=== PATIENT | female | born 1955 | race Caucasian/White ===

== ENCOUNTER → 2016-05-20 | Outpatient (CLI) | payer OTHER ==
[~2016-05-20] MED LIST: ALPR1TAB2 PO; BUPR150T15 PO; BYSTOLIC10 MG PO; BYSTOLIC5 MG PO; CALC-507 PO; CIPR500T94 PO; DICY10CA3 PO; DICY20TA30 PO; ESCI10TA10 PO; ESCI20TA10 PO; FURO-68 PO; HYDR-971 PO; LEVO500T38 PO; LORA10TA68 PO; LOSA100T6 PO; METH-37 PO; METR500T PO; MULT-212 PO; NICO1PAT25 TD; OMEP20TA63 PO; ONDA4TAB10 SL; OXYC-323 PO; Oxycodone Hcl/Acetaminophen PO
--- NOTE | 2016-05-20 14:24 | CARD ---
APPROVED REPORT EXAM: Two-dimensional and M-mode echocardiogram with Doppler and color Doppler. Other Information Quality : Average Rhythm : NSR INDICATION Chest Pain 2D DIMENSIONS RVDd3.5 (2.9-3.5cm)Left Atrium(2D)3.8 (1.6-4.0cm) IVSd1.3 (0.7-1.1cm)Aortic Root(2D)3.3 (2.0-3.7cm) LVDd5.2 (3.9-5.9cm)LVOT Diameter2.2 (1.8-2.4cm) PWd1.3 (0.7-1.1cm)LVDs3.3 (2.5-4.0cm) FS (%) 35.9 %SV84.2 ml LVEF(%)65.0 (>50%) Aortic Valve AoV Peak Tony.95.7cm/sAoV VTI20.9cm AO Peak GR.3.7mmHgLVOT Peak Tony.83.4cm/s LVOT VTI 18.38cmAO Mean GR.2mmHg CRIS (VMAX)3.75ak7AQR (VTI)3.49cm2 AI P 1/2 [id number] Mitral Valve MV E Ebkreomh47.7cm/sMV DECEL BPYM499dz MV A Jgtmkzdy11.6cm/sMV E Mean Gr.1mmHg MV BTO50rtZ/A Ratio0.7 MV A Ynletkin304whPFV (PHT)2.33cm2 TDI E/Lateral E'6.4E/Medial E'8.3 Pulmonary Valve PV Peak Xmfpqcnu48.0cm/sPV Peak Grad.3mmHg RVOT VTI17.4cm Tricuspid Valve TR P. Hhcsjiej880nk/sRAP KGOCDEVZ6euOv TR Peak Gr.67mjPcRCCJ24guDv Pulmonary Vein S1 Bgwdjwpb72.7cm/sD2 Elucbsyj06.0cm/s LEFT VENTRICLE The left ventricle is normal size. There is borderline to mild concentric left ventricular hypertroph y. Left ventricle systolic function is normal. The Ejection Fraction is 65%. There is normal LV segme ntal wall motion. The left ventricular diastolic function and filling is normal for age. RIGHT VENTRICLE The right ventricle is normal size. The right ventricular systolic function is normal. ATRIA The left atrium size is normal. The right atrium size is normal. The interatrial septum is intact wit h no evidence for an atrial septal defect or patent foramen ovale as noted on 2-D or Doppler imaging. AORTIC VALVE The aortic valve is normal in structure. The aortic valve is trileaflet. Doppler and Color Flow revea led mild aortic regurgitation. There is no significant aortic valvular stenosis. MITRAL VALVE The mitral valve is normal in structure. There is no mitral valve stenosis. Doppler and Color Flow re vealed trace to mild mitral regurgitation. TRICUSPID VALVE The tricuspid valve is normal in structure. Doppler and Color Flow revealed mild tricuspid regurgitat ion. The PA pressure was estimated at 30 mmHg. There is no tricuspid valve stenosis. PULMONIC VALVE The pulmonic valve is not well visualized. Doppler and Color Flow revealed no pulmonic valvular regur gitation. There is no pulmonic valvular stenosis. GREAT VESSELS The aortic root is normal in size. Normal pulmonary venous flow (Doppler). The IVC is normal in size and collapses >50% with inspiration. PERICARDIAL EFFUSION There is no evidence of significant pericardial effusion. Critical Notification Critical Value: No <Conclusion> Left ventricle systolic function is normal. The Ejection Fraction is 65%. There is borderline to mild concentric left ventricular hypertrophy. The left atrium size is normal. The right atrium size is normal. Doppler and Color Flow revealed mild aortic regurgitation. The aortic valve is normal in structure. The aortic valve is trileaflet. Doppler and Color Flow revealed trace to mild mitral regurgitation. The mitral valve is normal in structure. Doppler and Color Flow revealed mild tricuspid regurgitation. The PA pressure was estimated at 30 mmHg. The pulmonic valve is not well visualized. The aortic root is normal in size. There is no evidence of significant pericardial effusion.
== END | disposition home or self-care (01) ==
LOC: ECHO 08:53
PROVIDERS: ATTEND Internal Medicine Cardiovascular Disease
DX: R07.89 Other chest pain (principal); R53.83 Other fatigue; I51.7 Cardiomegaly; I34.0 Nonrheumatic mitral (valve) insufficiency; I35.1 Nonrheumatic aortic (valve) insufficiency; I07.1 Rheumatic tricuspid insufficiency
CPT/HCPCS: 93306

== ENCOUNTER 2016-05-31 11:36 | Emergency (ER) | payer OTHER ==
[~2016-05-31] VITALS: Ht 170.2 cm; Wt 89.8 kg
[~2016-05-31 11:36] MED LIST changes: -HYDR-971 PO; -METH-37 PO
[2016-05-31 11:54] VITALS: BP 174/91
[2016-05-31 12:59] LABS: BILIRUBIN,URINE NEGATIVE (NEG); GLUCOSE,URINE NEGATIVE (NEG); NITRITE,URINE NEGATIVE (NEG); PROTEIN,URINE NEGATIVE (NEG-TRACE); UROBILINOGEN,URINE 0.2 mg/dL (0.2 mg/dL)
[2016-05-31 13:10] LABS: BACTERIA,URINE 0 /HPF (0-FEW); RBC,URINE OCC /HPF (0-2); SQUAMOUS EPITHELIAL CELL,UR FEW /LPF; WBC,URINE OCC /HPF (0-4)
[2016-05-31] MEDS ORDERED: METH-37 PO (13:38)
[2016-05-31] MEDS ORDERED: HYDR-971 PO (13:38)
--- NOTE | 2016-05-31 13:40 | PHYS DOC ---
Past Medical History Past Medical History: Depression, Diverticulitis, Hypertension, Other Additional Past Medical Histor: SLEEP APNEA, SICK SINUS SYNDROME Past Surgical History: Pacemaker, Tonsillectomy, Other Additional Past Surgical Histo: BOWEL RESECTION, LAP BAND & REMOVAL OF BAND, gastric sleeve Additional Information: occasional Alcohol Use: Occasionally Drug Use: None Adult General Chief Complaint Chief Complaint: LOWER BACK PAIN OR [facility] HPI Patient is a 61 year old female who presents with low back pain for one week. She reports that the pain is mostly on the right side of the lumbar region without radiation. 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 She is a history of sciatica denies radiation of the pain. She denies any focal weakness or numbness. She's not had any incontinence or saddle anesthesia. She denies nausea, vomiting, abdominal pain, or urinary symptoms. Her PCP is Dr. Karin Valencia. Review of Systems Review of Systems Constitutional: Denies fever or chills. [] GI: Denies abdominal pain, nausea, vomiting. [] : Denies dysuria, hematuria or urinary frequency. [] Musculoskeletal: Denies joint pain. Reports low-back pain. Integument: Denies rash or skin lesions. [] Neurologic: Denies headache, focal weakness or sensory changes. Denies incontinence or saddle anesthesia. All systems reviewed and negative unless otherwise stated in the HPI. Allergies Allergies Allergies Coded Allergies Type Severity Reaction Last Updated Verified No Known Drug Allergies 01/12/15 No Physical Exam Physical Exam Constitutional: Well developed, well nourished, no acute distress, non-toxic appearance. [] HENT: Normocephalic, atraumatic, oropharynx moist. [] Eyes: PERRLA, EOMI, conjunctiva normal, no discharge. [] Neck: Normal range of motion, no tenderness, supple, no stridor. [] Cardiovascular: Heart rate regular rhythm, no murmur. [] Lungs & Thorax: Bilateral breath sounds clear to auscultation without wheezes, rales, or rhonchi. [] Abdomen: Bowel sounds normal, soft, no tenderness, no masses, no pulsatile masses. [] Skin: Warm, dry, no erythema, no rash. [] Back: No midline tenderness, right paraspinal and CVA tenderness. [] Extremities: No tenderness, ROM intact, no edema. Distal pulses equal bilaterally. Light touch sensation intact and equal bilaterally in the legs. Neurologic: Alert and oriented X 3, normal motor function, normal sensory function, no focal deficits noted. The patient walks with a slow, steady gait without assistance. Psychologic: Affect normal, judgement normal, mood normal. [] Current Patient Data Vital Signs Vital Signs Date Time Temp Pulse Resp B/P Pulse Ox O2 Delivery O2 Flow Rate FiO2 05/31/16 11:54 97.8 61 16 98 Room Air 97.8 Lab Values Laboratory Tests Test 05/31/16 12:49 Urine Collection Type Unknown Urine Color Yellow Urine Clarity Clear Urine pH 6.0 Urine Specific [place] 1.010 Urine Protein Negativemg/dL (NEG-TRACE) Urine Glucose (UA) Negativemg/dL (NEG) Urine Ketones (Stick) Negativemg/dL (NEG) Urine Blood Negative (NEG) Urine Nitrite Negative (NEG) Urine Bilirubin Negative (NEG) Urine Urobilinogen Dipstick 0.2mg/dL (0.2 mg/dL) Urine Leukocyte Esterase Negative (NEG) Urine RBC Occ/HPF (0-2) Urine WBC Occ/HPF (0-4) Urine Squamous Epithelial Cells Few/LPF Urine Bacteria 0/HPF (0-FEW) EKG EKG [] Radiology/Procedures Radiology/Procedures [] Course & Med Decision Making Course & Med Decision Making Pertinent Labs and Imaging studies reviewed. (See chart for details) [] Dragon Disclaimer Dragon Disclaimer This electronic medical record was generated, in whole or in part, using a voice recognition dictation system. Departure Departure Impression: Primary Impression: Low back strain Disposition: 01 HOME, SELF-CARE Condition: STABLE Referrals: INA GARCIA MD (PCP) Patient Instructions: Back Pain, Adult, [id number] Additional Instructions: You were seen today for low back pain. You did not have any tenderness over the bones, so no xray was performed. Your urine does not show any infection. Please take the prescribed medications as directed. Do not drive or operate heavy machinery while taking pain medication or muscle relaxers. Please apply heat, stretch and massage gently to help with your pain. Please follow up with your primary care doctor if your pain continues. Return to the emergency department if you have loss of bowel or bladder control , numbness between your legs, or other new or concerning symptoms. Scripts Hydrocodone/Apap 5-325 ([place] 5-325 Tablet)1 Each Tablet1 Tab PO PRN Q6HRS PRN PAIN #20 TAB Prov:ZAK MALHOTRA 05/31/16 Methocarbamol (Robaxin)500 Mg Fkrtxi604 Mg PO QID #20 TAB Prov:ZAK MALHOTRA 05/31/16 Problem Qualifiers Primary Impression: Low back strain Encounter type: initial encounter Qualified Code: S39.012A - Strain of muscle, fascia and tendon of lower back, initial encounter ZAK MALHOTRA May 31, 2016 13:40
== END 2016-05-31 13:47 | disposition home or self-care (01) ==
LOC: ER 11:36
DX: S39.012A Strain of muscle, fascia and tendon of lower back, initial encounter (principal); F32.9 Major depressive disorder, single episode, unspecified; I10 Essential (primary) hypertension; G47.30 Sleep apnea, unspecified; Z95.0 Presence of cardiac pacemaker; X58.XXXA Exposure to other specified factors, initial encounter; Y93.89 Activity, other specified; Y92.69 Other specified industrial and construction area as the place of occurrence of the external cause; Y99.8 Other external cause status
CPT/HCPCS: 81001; 99283

== ENCOUNTER → 2017-09-28 | Outpatient (CLI) | payer OTHER ==
[2017-09-28 08:21] LABS: ADD MAN DIFF? NO
[2017-09-28 08:32] LABS: BASO # 0.1 x10^3/uL (0.0-0.2); BASO % 1 % (0-3); EOS # 0.2 x10^3/uL (0.0-0.7); EOS % 3 % (0-3); HEMOGLOBIN 13.8 g/dL (12.0-15.5); LYMPH % 33 % (24-48); MEAN CORPUSCULAR HEMOGLOBIN 32 pg (25-35); MEAN CORPUSCULAR HGB CONC 35 g/dL (31-37); MEAN CORPUSCULAR VOLUME 91 fL (79-100); MONO # 0.5 x10^3/uL (0.0-1.1); MONO % 8 % (0-9); NEUT # 3.3 x10^3uL (1.8-7.7); NEUT % 55 % (31-73); PLATELET COUNT 204 x10^3/uL (140-400); RED BLOOD COUNT 4.28 x10^6/uL (3.50-5.40); RED CELL DISTRIBUTION WIDTH 13.2 % (11.5-14.5)
[2017-09-28 08:56] LABS: ALK PHOS 74 U/L (46-116); ALT (SGPT) 22 U/L (14-59); ANION GAP 11 (6-14); AST (SGOT) 21 U/L (15-37); BLOOD UREA NITROGEN 15 mg/dL (7-20); BUN/CREATININE RATIO 15 (6-20); CALCIUM 8.7 mg/dL (8.5-10.1); CARBON DIOXIDE 27 mmol/L (21-32); CHLORIDE 102 mmol/L (98-107); CHOLESTEROL 193 mg/dL (0-200); GFR 56.2; GLUCOSE 106 mg/dL (70-99); HDLC 58 mg/dL (40-60); LDLC 116 mg/dL (0-100); NON-HDL CHOLESTEROL 135 mg/dL (0-129); POTASSIUM 3.9 mmol/L (3.5-5.1); SODIUM 140 mmol/L (136-145); TOTAL BILIRUBIN 0.5 mg/dL (0.2-1.0); TRIGLYCERIDES 93 mg/dL (0-150); VLDLC 19 mg/dL (0-40)
[2017-09-28 08:59] LABS: CHOLESTEROL/HDL RATIO 3.3
[2017-09-29 07:39] LABS: HCV ANTIBODY <0.1 s/co ratio (0.0-0.9)
== END | disposition home or self-care (01) ==
LOC: LAB 07:40
DX: Z12.31 Encounter for screening mammogram for malignant neoplasm of breast (principal); I10 Essential (primary) hypertension
CPT/HCPCS: 36415; 77063; 77067; 80053; 80061; 85025; 86803

== ENCOUNTER → 2017-10-25 | Day surgery (SDC) | payer OTHER ==
[~2017-10-25] MED LIST changes: -ALPR1TAB2 PO; -BUPR150T15 PO; -BYSTOLIC10 MG PO; -BYSTOLIC5 MG PO; -CALC-507 PO; -CIPR500T94 PO; -DICY10CA3 PO; -DICY20TA30 PO; -ESCI10TA10 PO; -ESCI20TA10 PO; -FURO-68 PO; -LEVO500T38 PO; +LIDOCAINE 1% PF 2 ML VIAL. ID; +LIDOCAINE 2% PF Vial for OR 5 ML VIAL.; -LORA10TA68 PO; -LOSA100T6 PO; -METR500T PO; +MIDAZOLAM HCL/PF 2 MG/2 ML VIAL. IV; -MULT-212 PO; -NICO1PAT25 TD; -OMEP20TA63 PO; -ONDA4TAB10 SL; -OXYC-323 PO; -Oxycodone Hcl/Acetaminophen PO; +PROPOFOL 20 ML IV; +fentaNYL PF VIAL 100 MCG/2 ML VIAL IV
[2017-10-25] MEDS: IV RINGERS,LACTATED 1000ML 1,000 ML IV (06:12)
== END | disposition home or self-care (01) ==
LOC: ENDOS 06:57
DX: Z12.11 Encounter for screening for malignant neoplasm of colon (principal); K57.30 Diverticulosis of large intestine without perforation or abscess without bleeding; K64.0 First degree hemorrhoids; I10 Essential (primary) hypertension; K21.9 Gastro-esophageal reflux disease without esophagitis; F32.9 Major depressive disorder, single episode, unspecified; F41.9 Anxiety disorder, unspecified; E66.9 Obesity, unspecified; G47.30 Sleep apnea, unspecified; Z90.49 Acquired absence of other specified parts of digestive tract; Z98.84 Bariatric surgery status; M19.90 Unspecified osteoarthritis, unspecified site; Z79.899 Other long term (current) drug therapy; Z80.0 Family history of malignant neoplasm of digestive organs; Z86.010 Personal history of colon polyps; Z98.890 Other specified postprocedural states; Z95.0 Presence of cardiac pacemaker; I49.5 Sick sinus syndrome; F17.200 Nicotine dependence, unspecified, uncomplicated
CPT/HCPCS: 45378; J2704

== ENCOUNTER → 2018-04-11 | Outpatient (CLI) | payer OTHER ==
[2017-10-25 09:05] VITALS: BP 167/79
[~2018-04-11] MED LIST changes: +ALPR1TAB2 PO; +BUPR150T15 PO; +BYSTOLIC10 MG PO; +BYSTOLIC5 MG PO; +CALC-507 PO; +CIPR500T94 PO; +DICY10CA3 PO; +DICY20TA30 PO; +FURO-68 PO; +HYDR-3164 PO; +LEVO500T59 PO; +LEXAPRO10 MG PO; +LEXAPRO20 MG PO; -LIDOCAINE 1% PF 2 ML VIAL. ID; -LIDOCAINE 2% PF Vial for OR 5 ML VIAL.; +LORA10TA68 PO; +LOSA100T7 PO; +METH-37 PO; +METR500T PO; -MIDAZOLAM HCL/PF 2 MG/2 ML VIAL. IV; +MULT-212 PO; +NICO1PAT25 TD; +OMEP20TA63 PO; +ONDA4TAB10 SL; +OXYC1TAB15 PO; +Oxycodone Hcl/Acetaminophen PO; -PROPOFOL 20 ML IV; -fentaNYL PF VIAL 100 MCG/2 ML VIAL IV
--- NOTE | 2018-04-12 13:56 | SLEEP ---
DATE OF STUDY: 04/11/2018 SLEEP STUDY ATTENDING PHYSICIAN: Gayle Valencia MD The patient is a 62-year-old who weighs 200 pounds with a BMI of 32. The patient had a history of sleep apnea, and per study of 2007 was requiring 7 cm water CPAP pressure. Her pressure was increased to 13 cm water based on the last study. The patient had lost 75-80 pounds since then and felt that the CPAP pressure was too high as a result another titration study was requested. During the night study, the patient spent 412 minutes in bed and slept for 351 minutes with a sleep efficiency of 85%. The patient's sleep latency was 17 minutes with an absent REM sleep. Overall sleep architecture showed normal stage 1 sleep, increased stage 2 sleep, absent slow wave and absent REM sleep. EKG monitoring revealed normal sinus rhythm, average heart rate was 60 beats per minute, no sustained arrhythmias observed. No PLMS observed. The patient was started on CPAP at 5 cm water and titrated up to 7 cm water. At the final pressure, the patient slept for 149 minutes. The patient had supine sleep throughout. No REM sleep was observed. The patient's AHI was 0 per hour and oxygen saturation remained above 94%. The patient used small size nasal pillows. IMPRESSION: 1. Sleep apnea diagnosed previously. 2. No clinically significant periodic limb movements in sleep. RECOMMENDATIONS: 1. CPAP at 7 cm water completely eliminated the patient's sleep apnea and should be used on a nightly basis. The patient used small size nasal pillows. 2. Follow up in 4-6 weeks to assess compliance with CPAP and to document clinical improvement. 3. Further weight loss is advised. 4. Avoid [employer] depressants. 5. Caution regarding driving until symptoms of sleep apnea resolve with the current CPAP. PRASHANT WERNER MD DR: VU/gale JOB#: [id number] / [id number] GAYLE Smith MD
== END | disposition home or self-care (01) ==
LOC: RT 19:22
PROVIDERS: ATTEND Family Medicine
DX: G47.30 Sleep apnea, unspecified (principal)
CPT/HCPCS: 95811

== ENCOUNTER 2018-12-13 17:08 | Emergency (ER) | payer OTHER ==
[~2018-12-13] VITALS: Ht 170.2 cm; Wt 93.0 kg
[~2018-12-13 17:08] MED LIST changes: +LOSA100T14 PO; -LOSA100T7 PO
[2018-12-13] MEDS ORDERED: ONDANSETRON PF 4 MG/2 ML VIAL. IV ONE ×2 (17:45→20:15)
[2018-12-13] MEDS ORDERED: FAMOTIDINE 20 MG/2 ML VIAL IVP ONE (17:45)
[2018-12-13] MEDS ORDERED: MORPHINE SULFATE 10 MG/ML VIAL. IV ONE ×3 (17:45→20:15)
[2018-12-13] MEDS ORDERED: IV NORMAL SALINE 1000ML BAG 1,000 ML IV ONE (17:45)
[2018-12-13 17:51] LABS: BILIRUBIN,URINE NEGATIVE (NEG); CLARITY,URINE CLEAR; COLOR,URINE YELLOW; NITRITE,URINE NEGATIVE (NEG); PH,URINE 5.5; PROTEIN,URINE NEGATIVE (NEG-TRACE); UROBILINOGEN,URINE 0.2 mg/dL (0.2 mg/dL)
[2018-12-13 18:02] LABS: BACTERIA,URINE FEW /HPF (0-FEW); RBC,URINE 0 /HPF (0-2); SQUAMOUS EPITHELIAL CELL,UR MANY /LPF; WBC,URINE RARE /HPF (0-4)
[2018-12-13 18:25] LABS: BASO % 1 % (0-3); EOS # 0.2 x10^3/uL (0.0-0.7); EOS % 2 % (0-3); HEMATOCRIT 38.6 % (36.0-47.0); HEMOGLOBIN 13.2 g/dL (12.0-15.5); LYMPH # 1.7 x10^3/uL (1.0-4.8); LYMPH % 24 % (24-48); MEAN CORPUSCULAR HEMOGLOBIN 31 pg (25-35); MEAN CORPUSCULAR HGB CONC 34 g/dL (31-37); MEAN CORPUSCULAR VOLUME 90 fL (79-100); MONO # 0.7 x10^3/uL (0.0-1.1); MONO % 9 % (0-9); NEUT # 4.6 x10^3/uL (1.8-7.7); NEUT % 64 % (31-73); PLATELET COUNT 200 x10^3/uL (140-400); RED BLOOD COUNT 4.31 x10^6/uL (3.50-5.40); RED CELL DISTRIBUTION WIDTH 13.6 % (11.5-14.5); WHITE BLOOD COUNT 7.1 x10^3/uL (4.0-11.0)
[2018-12-13 18:40] LABS: CALCIUM 9.2 mg/dL (8.5-10.1); CREATININE 1.1 mg/dL (0.6-1.0); GFR 50.2; POTASSIUM 4.1 mmol/L (3.5-5.1)
[2018-12-13] MEDS ORDERED: IOHEXOL 300 MG/ML 100ML VIAL. IV ONE (18:45)
[2018-12-13 18:46] LABS: ALBUMIN 3.9 g/dL (3.4-5.0); ALBUMIN/GLOBULIN RATIO 1.1 (1.0-1.7); MAGNESIUM 1.8 mg/dL (1.8-2.4); TOTAL BILIRUBIN 0.5 mg/dL (0.2-1.0); TOTAL PROTEIN 7.5 g/dL (6.4-8.2)
--- NOTE | 2018-12-13 19:00 | PHYS DOC ---
Past Medical History Past Medical History: Depression, Diverticulitis, Diverticulosis, Hypertension, Other Additional Past Medical Histor: SLEEP APNEA, SICK SINUS SYNDROME (RENITA MARADIAGA APRN) Past Surgical History: Pacemaker, Tonsillectomy, Other Additional Past Surgical Histo: BOWEL RESECTION, LAP BAND & REMOVAL OF BAND, gastric sleeve (RENITA MARADIAGA APRN) Alcohol Use: Occasionally Drug Use: None (RENITA MARADIAGA APRN) Adult General Chief Complaint Chief Complaint: ABDOMINAL PAIN HPI HPI Patient is a 63 year old female with history of hypertension, diverticulitis, bowel resection, who presents to the ED today complaining of cramping 6 out of 10 left lower quadrant abdominal pain that began 5 days ago. Patient is also reporting loose stools. Denies any nausea, vomiting, diarrhea. Denies any bloody stools. She states she has leftover Cipro and Flagyl and Bentyl which she started 5 days ago. She states she also spoke with Dr. Severino who advised her to come to the hospital and also recommended Levaquin. (RENITA MARADIAGA APRN) Review of Systems Review of Systems Constitutional: Denies fever or chills [] Eyes: Denies change in visual acuity, redness, or eye pain [] HENT: Denies nasal congestion or sore throat [] Respiratory: Denies cough or shortness of breath [] Cardiovascular: No additional information not addressed in HPI [] GI: Reports left lower quadrant abdominal pain, soft stools, denies nausea, vomiting, bloody stools or diarrhea [] : Denies dysuria or hematuria [] Musculoskeletal: Denies back pain or joint pain [] Integument: Denies rash or skin lesions [] Neurologic: Denies headache, focal weakness or sensory changes [] All other systems were reviewed and found to be within normal limits, except as documented in this note. (RENITA MARADIAGA APRN) Current Medications Current Medications Current Medications Medications (Trade) Dose Ordered Sig/Gregorio Start Time Stop Time Status Last Admin Dose Admin Famotidine (Pepcid Vial) 20 mg 1X ONCE 12/13/18 17:45 12/13/18 17:46 DC 12/13/18 18:02 20 MG Iohexol (Omnipaque 300 Mg/ml) 60 ml 1X ONCE 12/13/18 18:45 12/13/18 18:48 DC 12/13/18 18:58 60 ML Levofloxacin/ Dextrose 100 ml @ 100 mls/hr 1X ONCE 12/13/18 20:15 12/13/18 21:14 DC 12/13/18 20:16 100 MLS/HR Morphine Sulfate (Morphine Sulfate) 5 mg 1X ONCE 12/13/18 20:15 12/13/18 20:16 DC 12/13/18 20:16 5 MG Ondansetron HCl (Zofran) 4 mg 1X ONCE 12/13/18 20:15 12/13/18 20:16 DC 12/13/18 20:15 4 MG Sodium Chloride 1,000 ml @ 1,000 mls/hr 1X ONCE 12/13/18 17:45 12/13/18 18:44 DC 12/13/18 18:02 1,000 MLS/HR (JACOB CHATTERJEE MD) Allergies Allergies Allergies Coded Allergies Type Severity Reaction Last Updated Verified No Known Drug Allergies 10/25/17 No (JACOB CHATTERJEE MD) Physical Exam Physical Exam Constitutional: Well developed, well nourished, no acute distress, non-toxic appearance. [] HENT: Normocephalic, atraumatic, bilateral external ears normal, oropharynx moist, no oral exudates, nose normal. [] Eyes: PERRLA, EOMI, conjunctiva normal, no discharge. [] Neck: Normal range of motion, no tenderness, supple, no stridor. [] Cardiovascular:Heart rate regular rhythm, no murmur [] Lungs & Thorax: Bilateral breath sounds clear to auscultation [] Abdomen: Rounded abdomen. Bowel sounds normal, soft, tenderness on palpation of the left lower quadrant, no right upper quadrant or right lower quadrant tenderness, no masses, no pulsatile masses. [] Skin: Warm, dry, no erythema, no rash. [] Back: No tenderness, no CVA tenderness. [] Extremities: No tenderness, no cyanosis, no clubbing, ROM intact, no edema. [] Neurologic: Alert and oriented X 3, normal motor function, normal sensory function, no focal deficits noted. [] Psychologic: Affect normal, judgement normal, mood normal. [] (RENITA MARADIAGA APRN) Current Patient Data Vital Signs Vital Signs Date Time Temp Pulse Resp B/P (MAP) Pulse Ox O2 Delivery O2 Flow Rate FiO2 12/13/18 20:30 60 15 192/97 (128) 100 Room Air 12/13/18 17:35 98.3 98.3 (JACOB CHATTERJEE MD) Lab Values Laboratory Tests Test 12/13/18 17:40 12/13/18 18:15 Urine Collection Type Void Urine Color Yellow Urine Clarity Clear Urine pH 5.5 Urine Specific [place] 1.010 Urine Protein Negative mg/dL (NEG-TRACE) Urine Glucose (UA) Negative mg/dL (NEG) Urine Ketones (Stick) Negative mg/dL (NEG) Urine Blood Negative (NEG) Urine Nitrite Negative (NEG) Urine Bilirubin Negative (NEG) Urine Urobilinogen Dipstick 0.2 mg/dL (0.2 mg/dL) Urine Leukocyte Esterase Negative (NEG) Urine RBC 0 /HPF (0-2) Urine WBC Rare /HPF (0-4) Urine Squamous Epithelial Cells Many /LPF Urine Bacteria Few /HPF (0-FEW) White Blood Count 7.1 x10^3/uL (4.0-11.0) Red Blood Count 4.31 x10^6/uL (3.50-5.40) Hemoglobin 13.2 g/dL (12.0-15.5) Hematocrit 38.6 % (36.0-47.0) Mean Corpuscular Volume 90 fL (79-100) Mean Corpuscular Hemoglobin 31 pg (25-35) Mean Corpuscular Hemoglobin Concent 34 g/dL (31-37) Red Cell Distribution Width 13.6 % (11.5-14.5) Platelet Count 200 x10^3/uL (140-400) Neutrophils (%) (Auto) 64 % (31-73) Lymphocytes (%) (Auto) 24 % (24-48) Monocytes (%) (Auto) 9 % (0-9) Eosinophils (%) (Auto) 2 % (0-3) Basophils (%) (Auto) 1 % (0-3) Neutrophils # (Auto) 4.6 x10^3/uL (1.8-7.7) Lymphocytes # (Auto) 1.7 x10^3/uL (1.0-4.8) Monocytes # (Auto) 0.7 x10^3/uL (0.0-1.1) Eosinophils # (Auto) 0.2 x10^3/uL (0.0-0.7) Basophils # (Auto) 0.0 x10^3/uL (0.0-0.2) Sodium Level 143 mmol/L (136-145) Potassium Level 4.1 mmol/L (3.5-5.1) Chloride Level 105 mmol/L (98-107) Carbon Dioxide Level 26 mmol/L (21-32) Anion Gap 12 (6-14) Blood Urea Nitrogen 14 mg/dL (7-20) Creatinine 1.1 mg/dL (0.6-1.0) H Estimated GFR (Cockcroft-Gault) 50.2 BUN/Creatinine Ratio 13 (6-20) Glucose Level 91 mg/dL (70-99) Calcium Level 9.2 mg/dL (8.5-10.1) Magnesium Level 1.8 mg/dL (1.8-2.4) Total Bilirubin 0.5 mg/dL (0.2-1.0) Aspartate Amino Transferase (AST) 33 U/L (15-37) Alanine Aminotransferase (ALT) 38 U/L (14-59) Alkaline Phosphatase 65 U/L (46-116) Total Protein 7.5 g/dL (6.4-8.2) Albumin 3.9 g/dL (3.4-5.0) Albumin/Globulin Ratio 1.1 (1.0-1.7) Lipase 201 U/L (73-393) Laboratory Tests 12/13/18 18:15 Laboratory Tests 12/13/18 18:15 (JACOB CHATTERJEE MD) EKG EKG [] (RENITA MARADIAGA APRN) Radiology/Procedures Radiology/Procedures []PROCEDURE: CT ABD PELV W/ IV CONTRST ONLY Exam: CT abdomen pelvis with IV contrast INDICATION: Abdominal pain TECHNIQUE: Sequential axial images through the abdomen and pelvis obtained following the administration of 60 mL of Omnipaque 300 IV contrast. Sagittal and coronal reformatted images were reconstructed from the axial data and reviewed. Comparisons: None FINDINGS: Heart size is normal. No pericardial effusion. Pacer lead terminating in the right ventricle. Visualized lung bases are clear. No pleural effusion. Liver, spleen, pancreas and adrenals are unremarkable. Gallbladder surgically absent. Kidneys display symmetric enhancement. No perinephric inflammation or hydronephrosis. No renal or ureteral calculi are identified. Bladder is distended and appears thin-walled. Uterus is not enlarged. No abnormal adnexal mass. Mild fat stranding surrounding the mid descending colon and area of diverticulosis. Remainder of the large and small bowel are unremarkable. Postsurgical changes of stomach. No obstruction. No free intra-abdominal air or fluid. Abdominal aorta has a normal course and caliber. Abdominal vasculature is patent. No enlarged intra-abdominal lymph nodes are identified. No suspicious osseous lesions or acute fractures. IMPRESSION: 1. Diverticulitis at the mid descending colon. No perforation or abscess. 2. Postsurgical changes of the stomach and of cholecystectomy. 3. Mild central biliary ductal dilatation, likely related to biliary reservoir given cholecystectomy. Correlate with LFTs. Exposure: One or more of the following in the visualized dose reduction techniques were utilized for this examination: 1. Automated exposure control 2. Adjustment of the MA and/or KV according to patient size 3. Use of iterative of reconstructive technique Electronically signed by: Mena Reid MD (12/13/2018 7:30 PM) [facility] DICTATED and SIGNED BY: MENA REID MD DATE: 12/13/181929 (RENITA MARADIAGA APRN) Course & Med Decision Making Course & Med Decision Making Pertinent Labs and Imaging studies reviewed. (See chart for details) This is a 63-year-old female patient with history of diverticulitis presenting to the ED today complaining of left lower quadrant abdominal pain and soft stools for 5 days. Patient is currently on Flagyl Cipro and Bentyl from a previous prescription. CBC with a normal WBC, normal hemoglobin and hematocrit, CMP with no acute findings. Urine analysis is negative for infection. CT of the abdomen and pelvic was noted for mild diverticulitis. Patient was offered admission, she declined. She requested Levaquin IV as well as by mouth for home use instead of Cipro. Prescriptions were given. Also discharged with Flagyl and Bentyl. Follow-up with GI and PCP in the course of this week (RENITA MARADIAGA APRN) Course & Med Decision Making Staff Physician Addendum: I was working in the ER during the course of this patient's visit. I was available for consultation as needed, but I was not directly involved in the care of this patient. (JACOB CHATTERJEE MD) Dragon Disclaimer Dragon Disclaimer This electronic medical record was generated, in whole or in part, using a voice recognition dictation system. (RENITA MARADIAGA APRN) Departure Departure Impression: Primary Impression: Diverticulitis Disposition: 01 HOME, SELF-CARE Condition: STABLE Referrals: YONI KNIGHT MD (PCP) Follow-up in the course of this week ALEJANDRO CARTWRIGHT MD follow up in the course of this week Patient Instructions: Diverticulitis, [id number] Additional Instructions: You were evaluated in the emergency room and noted to have mild diverticulitis. Take the prescribed medications as ordered. Follow-up with your own doctor as well as the provided specialist in the course of this week or next week. Please come back to the ED at any point symptoms worsen. Scripts Hydrocodone/Apap 5-325 ([place] 5-325 TABLET) 1 Each Tablet 1-2 TAB PO Q6HRS PRN for PAIN, #20 TAB Prov: RENITA MARADIAGA APRN 12/13/18 Ondansetron Hcl (ZOFRAN) 4 Mg Tablet 1 TAB PO Q6HRS, #20 TAB Prov: RENITA MARADIAGA APRN 12/13/18 Metronidazole (FLAGYL) 500 Mg Tablet 500 MG PO TID, #21 TAB Prov: RENITA MARADIAGA APRN 12/13/18 Levofloxacin (LEVAQUIN) 500 Mg Tablet 1 TAB PO DAILY, #7 TAB Prov: RENITA MARADIAGA APRN 12/13/18 RENITA MARADIAGA APRN Dec 13, 2018 19:00 JACOB CHATTERJEE MD Dec 15, 2018 00:46
--- NOTE | 2018-12-13 19:33 | RAD ---
Exam: CT abdomen pelvis with IV contrast INDICATION: Abdominal pain TECHNIQUE: Sequential axial images through the abdomen and pelvis obtained following the administration of 60 mL of Omnipaque 300 IV contrast. Sagittal and coronal reformatted images were reconstructed from the axial data and reviewed. Comparisons: None FINDINGS: Heart size is normal. No pericardial effusion. Pacer lead terminating in the right ventricle. Visualized lung bases are clear. No pleural effusion. Liver, spleen, pancreas and adrenals are unremarkable. Gallbladder surgically absent. Kidneys display symmetric enhancement. No perinephric inflammation or hydronephrosis. No renal or ureteral calculi are identified. Bladder is distended and appears thin-walled. Uterus is not enlarged. No abnormal adnexal mass. Mild fat stranding surrounding the mid descending colon and area of diverticulosis. Remainder of the large and small bowel are unremarkable. Postsurgical changes of stomach. No obstruction. No free intra-abdominal air or fluid. Abdominal aorta has a normal course and caliber. Abdominal vasculature is patent. No enlarged intra-abdominal lymph nodes are identified. No suspicious osseous lesions or acute fractures. IMPRESSION: 1. Diverticulitis at the mid descending colon. No perforation or abscess. 2. Postsurgical changes of the stomach and of cholecystectomy. 3. Mild central biliary ductal dilatation, likely related to biliary reservoir given cholecystectomy. Correlate with LFTs. Exposure: One or more of the following in the visualized dose reduction techniques were utilized for this examination: 1. Automated exposure control 2. Adjustment of the MA and/or KV according to patient size 3. Use of iterative of reconstructive technique Electronically signed by: Mena Lam MD (12/13/2018 7:30 PM) [facility]
[2018-12-13] MEDS ORDERED: ONDA4TAB7 PO (20:24)
[2018-12-13] MEDS ORDERED: METR500T PO (20:24)
[2018-12-13] MEDS ORDERED: LEVO500T59 PO (20:24)
[2018-12-13 20:30] VITALS: BP 192/97
[2018-12-13] MEDS ORDERED: HYDR-3164 PO (20:59)
== END 2018-12-13 21:03 | disposition home or self-care (01) ==
LOC: ER 17:08
DX: K57.32 Diverticulitis of large intestine without perforation or abscess without bleeding (principal); F32.9 Major depressive disorder, single episode, unspecified; I10 Essential (primary) hypertension; Z95.0 Presence of cardiac pacemaker; Z90.89 Acquired absence of other organs
CPT/HCPCS: 36415; 74177; 80053; 81001; 83690; 83735; 85025; 96365; 96375; 96376; 99285; J1956; J2270; J2405; J3490; J7030; Q9967

== ENCOUNTER 2019-02-19 13:05 | Inpatient (IN) | payer OTHER ==
[~2019-02-19] VITALS: Ht 170.2 cm; Wt 106.8 kg
[~2019-02-19 13:05] MED LIST changes: -LOSA100T14 PO; +ONDA4TAB7 PO
--- NOTE | 2019-02-19 13:44 | PHYS DOC ---
Past Medical History Past Medical History: Depression, Diverticulitis, Diverticulosis, Hypertension, Other Additional Past Medical Histor: SLEEP APNEA, SICK SINUS SYNDROME Past Surgical History: Pacemaker, Tonsillectomy, Other Additional Past Surgical Histo: BOWEL RESECTION, LAP BAND & REMOVAL OF BAND, gastric sleeve Alcohol Use: Occasionally Drug Use: None Adult General Chief Complaint Chief Complaint: ABDOMINAL PAIN HPI HPI Patient is a 63 year old female that presents with left lower quadrant abdominal pain that started last Monday. The patient states she talked to her primary care doctor Dr. Knight who then put her on Levaquin and Flagyl she is a history of diverticulitis. The patient states that the pain has continued has not gotten better. She rates her pain as 4 out of 10 in severity and sharp. She also states she's been having intermittent nausea. Review of Systems Review of Systems Constitutional: Denies fever or chills [] Eyes: Denies change in visual acuity, redness, or eye pain [] HENT: Denies nasal congestion or sore throat [] Respiratory: Denies cough or shortness of breath [] Cardiovascular: No additional information not addressed in HPI [] GI: Reports abdominal pain, nausea, Denies vomiting, bloody stools or diarrhea [] : Denies dysuria or hematuria [] Musculoskeletal: Denies back pain or joint pain [] Integument: Denies rash or skin lesions [] Neurologic: Denies headache, focal weakness or sensory changes [] Endocrine: Denies polyuria or polydipsia [] Complete systems were reviewed and found to be within normal limits, except as documented in this note. Current Medications Current Medications Current Medications Medications (Trade) Dose Ordered Sig/Gregorio Start Time Stop Time Status Last Admin Dose Admin Ciprofloxacin/ Dextrose 200 ml @ 200 mls/hr 1X ONCE 02/19/19 17:30 02/19/19 17:09 DC Fentanyl Citrate (Fentanyl 2ml Vial) 50 mcg 1X STAT 02/19/19 15:50 02/19/19 15:52 DC 02/19/19 15:55 50 MCG Iohexol (Omnipaque 300 Mg/ml) 60 ml 1X ONCE 02/19/19 16:00 02/19/19 16:01 DC 02/19/19 16:03 60 ML Metronidazole 100 ml @ 100 mls/hr 1X STAT 02/19/19 16:53 02/19/19 17:52 Morphine Sulfate (Morphine Sulfate) 4 mg 1X ONCE 02/19/19 13:45 02/19/19 13:46 DC 02/19/19 14:39 4 MG Ondansetron HCl (Zofran) 4 mg 1X ONCE 02/19/19 13:45 02/19/19 13:46 DC 02/19/19 14:23 4 MG Piperacillin Sod/ Tazobactam Sod 3.375 gm/Sodium Chloride 50 ml @ 100 mls/hr 1X ONCE 02/19/19 17:15 02/19/19 17:44 UNV Sodium Chloride 1,000 ml @ 1,000 mls/hr 1X ONCE 02/19/19 13:45 02/19/19 14:44 DC 02/19/19 14:23 1,000 MLS/HR Allergies Allergies Allergies Coded Allergies Type Severity Reaction Last Updated Verified No Known Drug Allergies 10/25/17 No Physical Exam Physical Exam Constitutional: Well developed, well nourished, no acute distress, non-toxic appearance. [] HENT: Normocephalic, atraumatic, bilateral external ears normal, oropharynx moist, no oral exudates, nose normal. [] Eyes: PERRLA, EOMI, conjunctiva normal, no discharge. [] Neck: Normal range of motion, no tenderness, supple, no stridor. [] Cardiovascular:Heart rate regular rhythm, no murmur [] Lungs & Thorax: Bilateral breath sounds clear to auscultation [] Abdomen: Bowel sounds normal, soft, left flank, and llq tenderness, no masses, no pulsatile masses. [] Skin: Warm, dry, no erythema, no rash. [] Back: No tenderness, no CVA tenderness. [] Extremities: No tenderness, no cyanosis, no clubbing, ROM intact, no edema. [] Neurologic: Alert and oriented X 3, normal motor function, normal sensory function, no focal deficits noted. [] Psychologic: Affect normal, judgement normal, mood normal. [] Current Patient Data Vital Signs Vital Signs Date Time Temp Pulse Resp B/P (MAP) Pulse Ox O2 Delivery O2 Flow Rate FiO2 02/19/19 15:55 16 97 Room Air 02/19/19 15:44 60 166/79 (108) 02/19/19 13:25 97.7 97.7 Lab Values Laboratory Tests Test 02/19/19 13:44 02/19/19 14:00 Urine Collection Type Unknown Urine Color Yellow Urine Clarity Clear Urine pH 5.5 Urine Specific [place] 1.010 Urine Protein Negative mg/dL (NEG-TRACE) Urine Glucose (UA) Negative mg/dL (NEG) Urine Ketones (Stick) Negative mg/dL (NEG) Urine Blood Negative (NEG) Urine Nitrite Negative (NEG) Urine Bilirubin Negative (NEG) Urine Urobilinogen Dipstick 0.2 mg/dL (0.2 mg/dL) Urine Leukocyte Esterase Negative (NEG) Urine RBC 0 /HPF (0-2) Urine WBC 0 /HPF (0-4) Urine Squamous Epithelial Cells Few /LPF Urine Bacteria 0 /HPF (0-FEW) White Blood Count 5.3 x10^3/uL (4.0-11.0) Red Blood Count 4.32 x10^6/uL (3.50-5.40) Hemoglobin 13.2 g/dL (12.0-15.5) Hematocrit 39.0 % (36.0-47.0) Mean Corpuscular Volume 90 fL (79-100) Mean Corpuscular Hemoglobin 31 pg (25-35) Mean Corpuscular Hemoglobin Concent 34 g/dL (31-37) Red Cell Distribution Width 13.7 % (11.5-14.5) Platelet Count 212 x10^3/uL (140-400) Neutrophils (%) (Auto) 57 % (31-73) Lymphocytes (%) (Auto) 30 % (24-48) Monocytes (%) (Auto) 8 % (0-9) Eosinophils (%) (Auto) 4 % (0-3) H Basophils (%) (Auto) 1 % (0-3) Neutrophils # (Auto) 3.0 x10^3/uL (1.8-7.7) Lymphocytes # (Auto) 1.6 x10^3/uL (1.0-4.8) Monocytes # (Auto) 0.4 x10^3/uL (0.0-1.1) Eosinophils # (Auto) 0.2 x10^3/uL (0.0-0.7) Basophils # (Auto) 0.0 x10^3/uL (0.0-0.2) Sodium Level 143 mmol/L (136-145) Potassium Level 4.1 mmol/L (3.5-5.1) Chloride Level 106 mmol/L (98-107) Carbon Dioxide Level 25 mmol/L (21-32) Anion Gap 12 (6-14) Blood Urea Nitrogen 13 mg/dL (7-20) Creatinine 1.2 mg/dL (0.6-1.0) H Estimated GFR (Cockcroft-Gault) 45.4 BUN/Creatinine Ratio 11 (6-20) Glucose Level 95 mg/dL (70-99) Calcium Level 9.3 mg/dL (8.5-10.1) Total Bilirubin 0.5 mg/dL (0.2-1.0) Aspartate Amino Transferase (AST) 27 U/L (15-37) Alanine Aminotransferase (ALT) 29 U/L (14-59) Alkaline Phosphatase 61 U/L (46-116) Total Protein 7.0 g/dL (6.4-8.2) Albumin 3.8 g/dL (3.4-5.0) Albumin/Globulin Ratio 1.2 (1.0-1.7) Lipase 151 U/L (73-393) Thyroid Stimulating Hormone (TSH) 3.498 uIU/mL (0.358-3.74) Laboratory Tests 02/19/19 14:00 Laboratory Tests 02/19/19 14:00 EKG EKG [] Radiology/Procedures Radiology/Procedures [][facility] [address] [place] [address] IMAGING REPORT Signed PATIENT: SAMUEL CHERY RACCOUNT: [id number] : 1955 LOCATION: ER AGE: 63 SEX: F EXAM STATUS: REG ER ORD. PHYSICIAN: AROLDO HERNADEZ APRN REASON: left sided abdominal pain; hx of diverticulitis PROCEDURE: CT ABD PELV W/ IV CONTRST ONLY Exam: CT abdomen and pelvis with contrast INDICATION: Left-sided abdominal pain TECHNIQUE: Sequential axial images through the abdomen and pelvis obtained following the administration of 60 mL of Omni 300 IV contrast. Sagittal and coronal reformatted images were reconstructed from the axial data and reviewed. Comparisons: 12/13/2018 FINDINGS: Heart size is normal. Right-sided pacer leads are noted. Visualized lung bases are clear. No pleural effusion. Liver, spleen, pancreas, and adrenals are unremarkable. Gallbladder surgically absent with mild intrahepatic ductal dilatation which appears similar when compared to the prior exam. Right extrarenal pelvis is again noted. No renal or ureteral calculi are identified. Kidneys demonstrate symmetric enhancement. No perinephric inflammation. Bladder is distended and appears thin-walled. Uterus is not enlarged. No abnormal adnexal mass. There is inflammatory changes in the area of diverticulosis at the mid descending colon. No evidence for perforation or abscess. Remainder of the large and small bowel are unremarkable. No obstruction. No free intra-abdominal air or fluid. Postsurgical changes within the stomach are again seen. Abdominal aorta has a normal course and caliber. Abdominal vasculature is patent. No enlarged intra-abdominal lymph nodes are identified. No suspicious osseous lesions or acute fractures. IMPRESSION: 1. Findings of diverticulitis at the mid descending colon. No evidence for perforation or abscess. As this is the same location of diverticulitis as on the prior CT a colonoscopy posttreatment is highly recommended to ensure that there is no underlying lesion. 2. Other stable findings described above. Exposure: One or more of the following in the visualized dose reduction techniques were utilized for this examination: 1. Automated exposure control 2. Adjustment of the MA and/or KV according to patient size 3. Use of iterative of reconstructive technique Electronically signed by: Mena Reid MD (02/19/2019 4:19 PM) [facility] DICTATED and SIGNED BY: MENA REID MD DATE: 02/19/19 1619 Course & Med Decision Making Course & Med Decision Making Pertinent Labs and Imaging studies reviewed. (See chart for details) Will get labs, CT, and give supportive care. Labs is unremarkable. CT shows diverticulitis. Patient has failed outpatient therapy will page Dr. Severino. Will order Zosyn and Flagyl. Dr. Severino accepts admission. Dragon Disclaimer Dragon Disclaimer This electronic medical record was generated, in whole or in part, using a voice recognition dictation system. Departure Departure Impression: Primary Impression: Diverticulitis Disposition: ADMITTED INPATIENT Admitting Physician: HIMS Condition: STABLE Referrals: YONI KNIGHT MD (PCP) AROLDO HERNADEZ APRN Feb 19, 2019 13:44
[2019-02-19] MEDS ORDERED: MORPHINE SULFATE 4 MG/ML VIAL. IV ONE (13:45)
[2019-02-19] MEDS ORDERED: IV NORMAL SALINE 1000ML BAG 1,000 ML IV ONE (13:45)
[2019-02-19] MEDS ORDERED: ONDANSETRON PF 4 MG/2 ML VIAL. IV ONE (13:45)
[2019-02-19 13:51] LABS: BILIRUBIN,URINE NEGATIVE (NEG); CLARITY,URINE CLEAR; COLOR,URINE YELLOW; NITRITE,URINE NEGATIVE (NEG); PH,URINE 5.5; PROTEIN,URINE NEGATIVE (NEG-TRACE); UROBILINOGEN,URINE 0.2 mg/dL (0.2 mg/dL)
[2019-02-19 14:07] LABS: BACTERIA,URINE 0 /HPF (0-FEW); RBC,URINE 0 /HPF (0-2); SQUAMOUS EPITHELIAL CELL,UR FEW /LPF; WBC,URINE 0 /HPF (0-4)
[2019-02-19 14:08] LABS: BASO % 1 % (0-3); EOS # 0.2 x10^3/uL (0.0-0.7); EOS % 4 % (0-3); HEMOGLOBIN 13.2 g/dL (12.0-15.5); LYMPH # 1.6 x10^3/uL (1.0-4.8); LYMPH % 30 % (24-48); MEAN CORPUSCULAR HEMOGLOBIN 31 pg (25-35); MEAN CORPUSCULAR HGB CONC 34 g/dL (31-37); MEAN CORPUSCULAR VOLUME 90 fL (79-100); MONO # 0.4 x10^3/uL (0.0-1.1); MONO % 8 % (0-9); NEUT % 57 % (31-73); PLATELET COUNT 212 x10^3/uL (140-400); RED BLOOD COUNT 4.32 x10^6/uL (3.50-5.40); RED CELL DISTRIBUTION WIDTH 13.7 % (11.5-14.5); WHITE BLOOD COUNT 5.3 x10^3/uL (4.0-11.0)
[2019-02-19 15:46] LABS: CALCIUM 9.3 mg/dL (8.5-10.1); CREATININE 1.2 mg/dL (0.6-1.0); GFR 45.4; POTASSIUM 4.1 mmol/L (3.5-5.1)
[2019-02-19] MEDS ORDERED: fentaNYL PF VIAL 100 MCG/2 ML VIAL IV STA (15:50)
[2019-02-19 15:52] LABS: ALBUMIN 3.8 g/dL (3.4-5.0); ALBUMIN/GLOBULIN RATIO 1.2 (1.0-1.7); TOTAL BILIRUBIN 0.5 mg/dL (0.2-1.0)
[2019-02-19] MEDS ORDERED: IOHEXOL 300 MG/ML 100ML VIAL. IV ONE (16:00)
--- NOTE | 2019-02-19 16:22 | RAD ---
Exam: CT abdomen and pelvis with contrast INDICATION: Left-sided abdominal pain TECHNIQUE: Sequential axial images through the abdomen and pelvis obtained following the administration of 60 mL of Omni 300 IV contrast. Sagittal and coronal reformatted images were reconstructed from the axial data and reviewed. Comparisons: 12/13/2018 FINDINGS: Heart size is normal. Right-sided pacer leads are noted. Visualized lung bases are clear. No pleural effusion. Liver, spleen, pancreas, and adrenals are unremarkable. Gallbladder surgically absent with mild intrahepatic ductal dilatation which appears similar when compared to the prior exam. Right extrarenal pelvis is again noted. No renal or ureteral calculi are identified. Kidneys demonstrate symmetric enhancement. No perinephric inflammation. Bladder is distended and appears thin-walled. Uterus is not enlarged. No abnormal adnexal mass. There is inflammatory changes in the area of diverticulosis at the mid descending colon. No evidence for perforation or abscess. Remainder of the large and small bowel are unremarkable. No obstruction. No free intra-abdominal air or fluid. Postsurgical changes within the stomach are again seen. Abdominal aorta has a normal course and caliber. Abdominal vasculature is patent. No enlarged intra-abdominal lymph nodes are identified. No suspicious osseous lesions or acute fractures. IMPRESSION: 1. Findings of diverticulitis at the mid descending colon. No evidence for perforation or abscess. As this is the same location of diverticulitis as on the prior CT a colonoscopy posttreatment is highly recommended to ensure that there is no underlying lesion. 2. Other stable findings described above. Exposure: One or more of the following in the visualized dose reduction techniques were utilized for this examination: 1. Automated exposure control 2. Adjustment of the MA and/or KV according to patient size 3. Use of iterative of reconstructive technique Electronically signed by: Mena Lam MD (02/19/2019 4:19 PM) [facility]
[2019-02-19] MEDS ORDERED: fentaNYL PF VIAL 100 MCG/2 ML VIAL IV PRN (17:15)
[2019-02-19] MEDS ORDERED: CIPROFLOXACIN 400MG PREMIX 200 ML IV ONE (17:30)
[2019-02-19] MEDS ORDERED: PIPERACILLIN/TAZOBACTAM 3.375 GM in IV NORMAL SALINE 50ML 50 ML IV ONE (17:30)
[2019-02-19] MEDS ORDERED: FUROSEMIDE 40 MG TABLET. PO PRN (18:45)
[2019-02-19] MEDS ORDERED: ALPRAZolam 1 MG TABLET PO PRN (18:45)
[2019-02-19] MEDS ORDERED: HYDROcodone/APAP 5/325MG 1 TAB TABLET PO PRN ×3 (18:45→19:15)
[2019-02-19] MEDS ORDERED: DICYCLOMINE 20 MG/2 ML AMPUL. IM PRN (18:45)
[2019-02-19] MEDS ORDERED: LOSA100T14 PO (19:06)
[2019-02-19] MEDS ORDERED: NICOTINE 14MG PATCH. TD SCH (19:15)
[2019-02-19] MEDS ORDERED: ONDANSETRON ODT 4 MG TAB.RAPDIS. PO PRN (19:15)
[2019-02-19 19:20] VITALS: BP 173/95
[2019-02-19] MEDS ORDERED: METHOCARBAMOL 500 MG TABLET PO SCH (21:00)
[2019-02-19 21:23] VITALS: BP 170/99
--- NOTE | 2019-02-19 21:37 | HP ---
ADMIT DATE: 02/19/2019 CHIEF COMPLAINT: Abdominal pain. HISTORY OF PRESENT ILLNESS: The patient is a pleasant 63-year-old female who presented with left lower quadrant abdominal pain. This has been an issue for her for some time, in fact I know this nice lady. She works on the third floor as a nurse. She has been suffering from intermittent diverticulitis for quite some time. In fact, she has even had a previous colon resection. I discussed the case with ER physician. We did a CAT scan and indeed it is showing diverticulitis again. It is on the left side in the descending colon. We are going to admit the patient and consult GI and General Surgery and I am going to place her on [facility]. PAST MEDICAL HISTORY: Chronic diverticulitis with previous bowel resection, depression, hypertension, sleep apnea, sick sinus syndrome, pacemaker, tonsillectomy, lap band and then she has had that band removed, and gastric sleeve. ALLERGIES: None. FAMILY HISTORY: Hypertension. SOCIAL HISTORY: She works as an RN on the third floor, does not drink, smoke, or take drugs. MEDICATIONS: Reviewed, please refer to the MRAD. REVIEW OF SYSTEMS: GENERAL: No history of weight change, weakness or fevers. SKIN: No bruising, hair changes or rashes. EYES: No blurred, double or loss of vision. NOSE AND THROAT: No history of nosebleeds, hoarseness or sore throat. HEART: No history of palpitations, chest pain or shortness of breath on exertion. LUNGS: Denies cough, hemoptysis, wheezing or shortness of breath. GASTROINTESTINAL: She complains of abdominal pain. GENITOURINARY: No history of frequency, urgency, hesitancy or nocturia. NEUROLOGIC: Denies history of numbness, tingling, tremor or weakness. PSYCHIATRIC: No history of panic, anxiety or depression. ENDOCRINE: No history of heat or cold intolerance, polyuria or polydipsia. EXTREMITIES: Denies muscle weakness, joint pain, pain on walking or stiffness. PHYSICAL EXAMINATION: VITALS: Within normal limits and are stable. GENERAL: No apparent distress. Alert and oriented. HEENT: Head is normocephalic, atraumatic, pupils were equally round and reactive to light and accommodation. NECK: Supple, no JVD, no thyromegaly was noted. LUNGS: Clear to auscultation in all lung [place] without rhonchi or wheezing. HEART: RRR, S1, S2 present. Peripheral pulses intact, no obvious murmurs were noted. ABDOMEN: She has some pain on the left side with decreased bowel sounds. EXTREMITIES: Without any cyanosis, clubbing, or edema. Pedal pulses intact, Homans sign is negative. NEUROLOGIC: Normal speech, normal tone. A & O x3, moves all extremities, no obvious focal deficits. PSYCHIATRIC: Normal affect, normal mood. Stable. SKIN: No ulcerations or rashes, good skin turgor, no jaundice. VASCULAR: Good capillary refill, neurovascular bundle appears to be intact. LABORATORY DATA: Hematology is normal. Electrolytes are normal. ASSESSMENT AND PLAN: Acute on chronic diverticulitis. Suspect she might need another bowel resection. We will get a second opinion from Dr. Shipley and Dr. Majano. IV Zosyn. DVT prophylaxis. Home meds. Clear liquid diet. PRN Bentyl per patient's request. I also resumed her home meds and reviewed the chart with her daughter at length. ULISSES KING DO DR: HALEY/gale JOB#: [id number] / [id number]
--- NOTE | 2019-02-19 21:42 | NUR ---
The patient, SAMUEL CHERY, 63 y/o, F admitted by ULISSES KING III, DO, was given written information regarding hospital policies, unit procedures and contact persons. RN received report from Caterina CORDOVA in ED at 1842. Patient was transported from ED to room 414 via wheelchair with daughter at bedside at 1905. RN performed a head to toe assessment at that time, BP 173/95 HR 60 and no pain at this time. Orders were received and implemented at that time. Bed is in lowest locked position and call light is within reach. Valuables were checked and and left in the room with the patient. RN will continue to monitor patient closely.
[2019-02-19] MEDS: metroNIDAZOLE 500 MG TABLET PO SCH (22:00)
[2019-02-19] MEDS: DICYCLOMINE HCL 10 MG CAPSULE PO SCH (22:01)
[2019-02-19] MEDS: LOSARTAN POTASSIUM 50 MG TABLET. PO SCH (22:41)
[2019-02-19] MEDS ORDERED: PIP/TAZO PER PHARMACY MC PRN (23:30)
[2019-02-19 23:36] VITALS: BP 161/95
[2019-02-20] VITALS (7 sets, daily range): BP systolic 154–184; BP diastolic 76–96
[2019-02-20] MEDS: PIPERACILLIN/TAZOBACTAM 3.375 GM in IV NORMAL SALINE 50ML 50 ML IV SCH ×4 (00:48→18:25)
[2019-02-20] MEDS: AMINO AC 3%/ELECTROLYTE/GLYCER 1,000 ML IV SCH ×2 (00:52→15:52)
[2019-02-20] MEDS: PANTOPRAZOLE 40 MG TABLET.DR. PO SCH ×2 (06:08→15:52)
[2019-02-20] MEDS: CALCIUM CARB/VIT D3 500/200 TABLET. PO SCH (08:29)
[2019-02-20] MEDS: CITALOPRAM 20 MG TABLET. PO SCH (08:29)
[2019-02-20] MEDS: MULTIVITAMIN with MINERAL TABLET. PO SCH (08:30)
[2019-02-20] MEDS: metroNIDAZOLE 500 MG TABLET PO SCH (08:30)
[2019-02-20] MEDS: DICYCLOMINE HCL 10 MG CAPSULE PO SCH ×3 (08:30→21:13)
[2019-02-20] MEDS ORDERED: LOSARTAN POTASSIUM 50 MG TABLET. PO SCH (09:00)
[2019-02-20] MEDS ORDERED: CETIRIZINE HCL 10 MG TABLET. PO PRN (09:00)
--- NOTE | 2019-02-20 09:11 | PDOC2 ---
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 H/o recurrent diverticulitis w/ past colon resection (somewhere around [id number] w/ Dr. Shipley). Here, diverticulitis on CTs in 10/2013, 07/2015, 12/2018, and yesterday (mid descending colon). Treated as outpt w/ PO atbx and 1 dose of IV Levaquin in 12/2018 - pain resolved then but recurred last Monday in LLQ. Comes and goes - worse w/ eating. No n/v, dysphagia, bleeding, or diarrhea. Prior to symptom onset had a stressful week at work, ate more gluten than normal, and was constipated). Takes probiotics and magnesium PRN for intermittent constipation. Gained 10 pounds or so over the past year. EGD 10/2014 w/ reflux esophagitis and gastritis (biopsies neg for Joshi's and H. pylori). On omeprazole QD w/ good control. Last colonoscopy 10/2017 w/ Dr. Majano - cannot view procedure report. S/p cholecystectomy for biliary dyskinesia (path w/ chronic cholecystitis). Hepatic steatosis noted on past imaging. Hep C Ab negative in 2018. No pancreas or PUD history. No regular use of NSAIDs though has taken some ibuprofen this week - usually takes Bentyl. PMH: PMH: HTN, GALEN, hepatic steatosis, GERD, diverticulosis/itis, anxiety/depression cholecystectomy, pacemaker, tonsillectomy, colon resection, breast biopsy, lap band/removal, gastric sleeve, knee arthroscopy FH: Family History: Cancer (sister - colon), DM, Other (CREST, Parkinson's) Social History: Smoke: Quit ALCOHOL: social Drugs: None ROS: GEN: Denies fevers, chills, sweats HEENT: Denies blurred vision, sore throat CV: Denies chest pain RESP: Denies shortness of air, cough GI: Per HPI : Denies hematuria, dysuria ENDO: +weight gain NEURO: Denies confusion, dizziness MSK: Denies weakness, joint pain/swelling SKIN: Denies jaundice, pruritus Vitals: Vitals: Vital Signs Date Time Temp Pulse Resp B/P (MAP) Pulse Ox O2 Delivery O2 Flow Rate FiO2 02/20/19 08:30 98 Nasal Cannula 2.0 02/20/19 07:00 97.7 60 16 158/89 (112) 97.7 Labs: Labs: Laboratory Tests Test 02/19/19 13:44 02/19/19 14:00 Urine Collection Type Unknown Urine Color Yellow Urine Clarity Clear Urine pH 5.5 Urine Specific [place] 1.010 Urine Protein Negative mg/dL (NEG-TRACE) Urine Glucose (UA) Negative mg/dL (NEG) Urine Ketones (Stick) Negative mg/dL (NEG) Urine Blood Negative (NEG) Urine Nitrite Negative (NEG) Urine Bilirubin Negative (NEG) Urine Urobilinogen Dipstick 0.2 mg/dL (0.2 mg/dL) Urine Leukocyte Esterase Negative (NEG) Urine RBC 0 /HPF (0-2) Urine WBC 0 /HPF (0-4) Urine Squamous Epithelial Cells Few /LPF Urine Bacteria 0 /HPF (0-FEW) White Blood Count 5.3 x10^3/uL (4.0-11.0) Red Blood Count 4.32 x10^6/uL (3.50-5.40) Hemoglobin 13.2 g/dL (12.0-15.5) Hematocrit 39.0 % (36.0-47.0) Mean Corpuscular Volume 90 fL (79-100) Mean Corpuscular Hemoglobin 31 pg (25-35) Mean Corpuscular Hemoglobin Concent 34 g/dL (31-37) Red Cell Distribution Width 13.7 % (11.5-14.5) Platelet Count 212 x10^3/uL (140-400) Neutrophils (%) (Auto) 57 % (31-73) Lymphocytes (%) (Auto) 30 % (24-48) Monocytes (%) (Auto) 8 % (0-9) Eosinophils (%) (Auto) 4 % (0-3) Basophils (%) (Auto) 1 % (0-3) Neutrophils # (Auto) 3.0 x10^3/uL (1.8-7.7) Lymphocytes # (Auto) 1.6 x10^3/uL (1.0-4.8) Monocytes # (Auto) 0.4 x10^3/uL (0.0-1.1) Eosinophils # (Auto) 0.2 x10^3/uL (0.0-0.7) Basophils # (Auto) 0.0 x10^3/uL (0.0-0.2) Sodium Level 143 mmol/L (136-145) Potassium Level 4.1 mmol/L (3.5-5.1) Chloride Level 106 mmol/L (98-107) Carbon Dioxide Level 25 mmol/L (21-32) Anion Gap 12 (6-14) Blood Urea Nitrogen 13 mg/dL (7-20) Creatinine 1.2 mg/dL (0.6-1.0) Estimated GFR (Cockcroft-Gault) 45.4 BUN/Creatinine Ratio 11 (6-20) Glucose Level 95 mg/dL (70-99) Calcium Level 9.3 mg/dL (8.5-10.1) Total Bilirubin 0.5 mg/dL (0.2-1.0) Aspartate Amino Transf (AST/SGOT) 27 U/L (15-37) Alanine Aminotransferase (ALT/SGPT) 29 U/L (14-59) Alkaline Phosphatase 61 U/L (46-116) Total Protein 7.0 g/dL (6.4-8.2) Albumin 3.8 g/dL (3.4-5.0) Albumin/Globulin Ratio 1.2 (1.0-1.7) Lipase 151 U/L (73-393) Thyroid Stimulating Hormone (TSH) 3.498 uIU/mL (0.358-3.74) Allergies: Coded Allergies: No Known Drug Allergies (Unverified , 10/25/17) Medications: Current Medications Medications (Trade) Dose Ordered Sig/Gregorio Route PRN Reason Start Time Stop Time Status Last Admin Dose Admin Sodium Chloride 1,000 ml @ 1,000 mls/hr 1X ONCE IV 02/19/19 13:45 02/19/19 14:44 DC 02/19/19 14:23 Morphine Sulfate (Morphine Sulfate) 4 mg 1X ONCE IV 02/19/19 13:45 02/19/19 13:46 DC 02/19/19 14:39 Ondansetron HCl (Zofran) 4 mg 1X ONCE IV 02/19/19 13:45 02/19/19 13:46 DC 02/19/19 14:23 Iohexol (Omnipaque 300 Mg/ml) 60 ml 1X ONCE IV 02/19/19 16:00 02/19/19 16:01 DC 02/19/19 16:03 Fentanyl Citrate (Fentanyl 2ml Vial) 50 mcg 1X STAT IV 02/19/19 15:50 02/19/19 15:52 DC 02/19/19 15:55 Metronidazole 100 ml @ 100 mls/hr 1X STAT IV 02/19/19 16:53 02/19/19 17:52 DC 02/19/19 17:06 Piperacillin Sod/ Tazobactam Sod 3.375 gm/Sodium Chloride 50 ml @ 100 mls/hr 1X ONCE IV 02/19/19 17:30 02/19/19 17:59 DC 02/19/19 18:12 Fentanyl Citrate (Fentanyl 2ml Vial) 50 mcg PRN Q1HR PRN IV PAIN 02/19/19 17:15 02/20/19 23:00 02/20/19 01:38 Dicyclomine HCl (Bentyl) 10 mg TID PO 02/19/19 21:00 02/20/19 08:30 Alprazolam (Xanax) 1 mg TID PRN PRN PO ANXIETY / AGITATION 02/19/19 18:45 02/19/19 22:00 Acetaminophen/ Hydrocodone Bitart (Lortab 5/325) 1 tab PRN Q6HRS PRN PO PAIN MILD TO MOD 02/19/19 18:45 02/20/19 07:15 Methocarbamol (Robaxin) 500 mg QID PO 02/19/19 21:00 02/19/19 23:24 DC 02/19/19 22:01 Metronidazole (Flagyl) 500 mg TID PO 02/19/19 21:00 02/20/19 08:30 Calcium/Vitamin D (Oscal D 500mg/ 200uts) 1 tab DAILY PO 02/20/19 09:00 02/20/19 08:29 Citalopram Hydrobromide (CeleXA) 40 mg DAILY PO 02/20/19 09:00 02/20/19 08:29 Multivitamins (Thera M Plus) 1 tab DAILY PO 02/20/19 09:00 02/20/19 08:30 Pantoprazole Sodium (Protonix) 40 mg BIDAC PO 02/20/19 07:30 02/20/19 06:08 Losartan Potassium (Cozaar) 100 mg HS PO 02/19/19 22:30 02/19/19 22:41 Amino Acids/ Glycerin/ Electrolytes 1,000 ml @ 75 mls/hr [id number] IV 02/19/19 23:30 02/20/19 00:52 Piperacillin Sod/ Tazobactam Sod 3.375 gm/Sodium Chloride 50 ml @ 100 mls/hr Q6HRS IV 02/20/19 00:00 02/20/19 06:08 Imaging: Imaging: CT A/P w/ IV contrast 02/19 IMPRESSION: Findings of diverticulitis at the mid descending colon. No evidence for perforation or abscess. As this is the same location of diverticulitis as on the prior CT a colonoscopy posttreatment is highly recommended to ensure that there is no underlying lesion. PE: GEN: looks ill HEENT: Atraumatic, PERRL LUNGS: CTAB HEART: RRR ABD: NABS, S/ND, LLQ pain EXTREMITY: No edema SKIN: No rashes, no jaundice NEURO/PSYCH: A & O 3 A/P: A/P: Recurrent diverticulitis w/ h/o colon resection GERD - controlled w/ PPI S/p gastric sleeve CRC screen - UTD (2017) Intermittent constipation S/p cholecystectomy Hepatic steatosis -- Tolerating clears, on IV atbx - continue - also getting PO Flagyl (?need to continue) Surgery asked to see. Pain control per primary. TAYLER DE SANTIAGO Feb 20, 2019 09:11
[2019-02-20] MEDS ORDERED: FLU VAX QS 2019-20 (36MOS+)/PF 0.5 ML SYRINGE. VAX IM ONE (09:30)
--- NOTE | 2019-02-20 13:39 | PDOC ---
[employer] PROGRESS NOTE Chief Complaint Chief Complaint Abdominal pain. Diverticulitis History of Present Illness History of Present Illness 02/20/19 Pt seen and examined at bedside Pt has hx of diverticulitis and colon resections Pt was pleasant On nasal cannula oxygen, 2L Pt tolerating liquid diets Charts and labs reviewed CT Abd IMPRESSION: 1. Findings of diverticulitis at the mid descending colon. No evidence for perforation or abscess. As this is the same location of diverticulitis as on the prior CT a colonoscopy posttreatment is highly recommended to ensure that there is no underlying lesion. 2. Other stable findings described above. D/w RN Vitals/I&O Vitals/I&O: Vital Signs Date Time Temp Pulse Resp B/P (MAP) Pulse Ox O2 Delivery O2 Flow Rate FiO2 02/20/19 11:00 97.4 62 16 184/96 (125) 95 Room Air 97.4 02/20/19 08:30 2.0 I & O 02/19/19 02/19/19 02/20/19 15:00 23:00 07:00 Intake Total 1000 ml 420 ml Balance 1000 ml 420 ml Physical Exam General: Alert, Oriented X3, Cooperative Heart: Regular rate, Normal S1, Normal S2 Lungs: Clear Extremities: No clubbing, No cyanosis, No edema Skin: No rashes, No breakdown, No significant lesion Labs Labs: Laboratory Tests Test 02/19/19 13:44 02/19/19 14:00 Urine Collection Type Unknown Urine Color Yellow Urine Clarity Clear Urine pH 5.5 Urine Specific [place] 1.010 Urine Protein Negative mg/dL (NEG-TRACE) Urine Glucose (UA) Negative mg/dL (NEG) Urine Ketones (Stick) Negative mg/dL (NEG) Urine Blood Negative (NEG) Urine Nitrite Negative (NEG) Urine Bilirubin Negative (NEG) Urine Urobilinogen Dipstick 0.2 mg/dL (0.2 mg/dL) Urine Leukocyte Esterase Negative (NEG) Urine RBC 0 /HPF (0-2) Urine WBC 0 /HPF (0-4) Urine Squamous Epithelial Cells Few /LPF Urine Bacteria 0 /HPF (0-FEW) White Blood Count 5.3 x10^3/uL (4.0-11.0) Red Blood Count 4.32 x10^6/uL (3.50-5.40) Hemoglobin 13.2 g/dL (12.0-15.5) Hematocrit 39.0 % (36.0-47.0) Mean Corpuscular Volume 90 fL (79-100) Mean Corpuscular Hemoglobin 31 pg (25-35) Mean Corpuscular Hemoglobin Concent 34 g/dL (31-37) Red Cell Distribution Width 13.7 % (11.5-14.5) Platelet Count 212 x10^3/uL (140-400) Neutrophils (%) (Auto) 57 % (31-73) Lymphocytes (%) (Auto) 30 % (24-48) Monocytes (%) (Auto) 8 % (0-9) Eosinophils (%) (Auto) 4 % (0-3) Basophils (%) (Auto) 1 % (0-3) Neutrophils # (Auto) 3.0 x10^3/uL (1.8-7.7) Lymphocytes # (Auto) 1.6 x10^3/uL (1.0-4.8) Monocytes # (Auto) 0.4 x10^3/uL (0.0-1.1) Eosinophils # (Auto) 0.2 x10^3/uL (0.0-0.7) Basophils # (Auto) 0.0 x10^3/uL (0.0-0.2) Sodium Level 143 mmol/L (136-145) Potassium Level 4.1 mmol/L (3.5-5.1) Chloride Level 106 mmol/L (98-107) Carbon Dioxide Level 25 mmol/L (21-32) Anion Gap 12 (6-14) Blood Urea Nitrogen 13 mg/dL (7-20) Creatinine 1.2 mg/dL (0.6-1.0) Estimated GFR (Cockcroft-Gault) 45.4 BUN/Creatinine Ratio 11 (6-20) Glucose Level 95 mg/dL (70-99) Calcium Level 9.3 mg/dL (8.5-10.1) Total Bilirubin 0.5 mg/dL (0.2-1.0) Aspartate Amino Transf (AST/SGOT) 27 U/L (15-37) Alanine Aminotransferase (ALT/SGPT) 29 U/L (14-59) Alkaline Phosphatase 61 U/L (46-116) Total Protein 7.0 g/dL (6.4-8.2) Albumin 3.8 g/dL (3.4-5.0) Albumin/Globulin Ratio 1.2 (1.0-1.7) Lipase 151 U/L (73-393) Thyroid Stimulating Hormone (TSH) 3.498 uIU/mL (0.358-3.74) Review of Systems Review of Systems: Pt denies fever Pt denies numbness and tingling Assessment and Plan Assessmemt and Plan Problems Medical Problems: (1) Diverticulitis Status: Acute Assessment Diverticulosis/itis HTN GALEN hepatic steatosis GERD anxiety/depression Plan Advance diet to regular diet as tolerated D/c PPN IV abx DVT prophylaxis Labs Await input from GI Full code Home meds Comment Review of Relevant I have reviewed the following items tish (where applicable) has been applied. Medications: Current Medications Medications (Trade) Dose Ordered Sig/Gregorio Route PRN Reason Start Time Stop Time Status Last Admin Dose Admin Sodium Chloride 1,000 ml @ 1,000 mls/hr 1X ONCE IV 02/19/19 13:45 02/19/19 14:44 DC 02/19/19 14:23 Morphine Sulfate (Morphine Sulfate) 4 mg 1X ONCE IV 02/19/19 13:45 02/19/19 13:46 DC 02/19/19 14:39 Ondansetron HCl (Zofran) 4 mg 1X ONCE IV 02/19/19 13:45 02/19/19 13:46 DC 02/19/19 14:23 Iohexol (Omnipaque 300 Mg/ml) 60 ml 1X ONCE IV 02/19/19 16:00 02/19/19 16:01 DC 02/19/19 16:03 Fentanyl Citrate (Fentanyl 2ml Vial) 50 mcg 1X STAT IV 02/19/19 15:50 02/19/19 15:52 DC 02/19/19 15:55 Metronidazole 100 ml @ 100 mls/hr 1X STAT IV 02/19/19 16:53 02/19/19 17:52 DC 02/19/19 17:06 Piperacillin Sod/ Tazobactam Sod 3.375 gm/Sodium Chloride 50 ml @ 100 mls/hr 1X ONCE IV 02/19/19 17:30 02/19/19 17:59 DC 02/19/19 18:12 Fentanyl Citrate (Fentanyl 2ml Vial) 50 mcg PRN Q1HR PRN IV PAIN 02/19/19 17:15 02/20/19 23:00 02/20/19 01:38 Dicyclomine HCl (Bentyl) 10 mg TID PO 02/19/19 21:00 02/20/19 12:29 Alprazolam (Xanax) 1 mg TID PRN PRN PO ANXIETY / AGITATION 02/19/19 18:45 02/19/19 22:00 Acetaminophen/ Hydrocodone Bitart (Lortab 5/325) 1 tab PRN Q6HRS PRN PO PAIN MILD TO MOD 02/19/19 18:45 02/20/19 07:15 Methocarbamol (Robaxin) 500 mg QID PO 02/19/19 21:00 02/19/19 23:24 DC 02/19/19 22:01 Metronidazole (Flagyl) 500 mg TID PO 02/19/19 21:00 02/20/19 10:26 DC 02/20/19 08:30 Calcium/Vitamin D (Oscal D 500mg/ 200uts) 1 tab DAILY PO 02/20/19 09:00 02/20/19 08:29 Citalopram Hydrobromide (CeleXA) 40 mg DAILY PO 02/20/19 09:00 02/20/19 08:29 Multivitamins (Thera M Plus) 1 tab DAILY PO 02/20/19 09:00 02/20/19 08:30 Pantoprazole Sodium (Protonix) 40 mg BIDAC PO 02/20/19 07:30 02/20/19 06:08 Losartan Potassium (Cozaar) 100 mg HS PO 02/19/19 22:30 02/19/19 22:41 Amino Acids/ Glycerin/ Electrolytes 1,000 ml @ 75 mls/hr [id number] IV 02/19/19 23:30 02/20/19 00:52 Piperacillin Sod/ Tazobactam Sod 3.375 gm/Sodium Chloride 50 ml @ 100 mls/hr Q6HRS IV 02/20/19 00:00 02/20/19 12:17 Influenza Virus Vaccine Quadrival (Afluria Quad 2018- (3yr Up) Syringe) 0.5 ml ONCE ONCE VAX IM 02/20/19 09:30 02/20/19 09:31 DC 02/20/19 12:21 ULISSES KING III DO Feb 20, 2019 13:39
--- NOTE | 2019-02-20 14:08 | NUR ---
SS following for discharge planning. SS reviewed pt chart. Pt is from home and is currently requiring oxygen. SS will continue to follow for discharge planning.
[2019-02-20] MEDS ORDERED: DICYCLOMINE HCL 10 MG CAPSULE PO PRN (15:15)
--- NOTE | 2019-02-20 15:30 | PDOC2 ---
CONSULT Date of Consult Date of Consult DATE: 02/20/19 TIME: 15:25 Reason for Consult Reason for Consult: Recurrent diverticulitis Referring Physician Referring Physician: Dr. Severino Identification/Chief Complaint Chief Complaint LLQ abd pain Source Source: Chart review, Patient History of Present Illness Reason for Visit: 63 yo F with c/o LLQ abd pain. Pt s/p lap sigmoid colectomy for diverticulitis in 09/2009. Pt reports multiple repeat episodes over the last few years since 2013. Last episode was 4 months ago. C/o pain LLQ, but improved since admission. Past Medical History Cardiovascular: HTN, Syncope, Other Pulmonary: Other GI: Diverticulosis Psych: Depression Past Surgical History Past Surgical History: Pacemaker, Tonsillectomy, Colon Resection, Other Family History Family History: Coronary Artery Disease Social History Quit ALCOHOL: social Drugs: None Current Problem List Problem List Problems Medical Problems: (1) Diverticulitis Status: Acute Current Medications Current Medications Current Medications Sodium Chloride 1,000 ml @ 1,000 mls/hr 1X ONCE IV Last administered on 02/19/19at 14:23; Start 02/19/19 at 13:45; Stop 02/19/19 at 14:44; Status DC Morphine Sulfate (Morphine Sulfate) 4 mg 1X ONCE IV Last administered on 02/19/19at 14:39; Start 02/19/19 at 13:45; Stop 02/19/19 at 13:46; Status DC Ondansetron HCl (Zofran) 4 mg 1X ONCE IV Last administered on 02/19/19at 14:23; Start 02/19/19 at 13:45; Stop 02/19/19 at 13:46; Status DC Iohexol (Omnipaque 300 Mg/ml) 60 ml 1X ONCE IV Last administered on 02/19/19at 16:03; Start 02/19/19 at 16:00; Stop 02/19/19 at 16:01; Status DC Fentanyl Citrate (Fentanyl 2ml Vial) 50 mcg 1X STAT IV Last administered on 02/19/19at 15:55; Start 02/19/19 at 15:50; Stop 02/19/19 at 15:52; Status DC Ciprofloxacin/ Dextrose 200 ml @ 200 mls/hr 1X ONCE IV ; Start 02/19/19 at 17:30; Stop 02/19/19 at 17:09; Status DC Metronidazole 100 ml @ 100 mls/hr 1X STAT IV Last administered on 02/19/19at 17:06; Start 02/19/19 at 16:53; Stop 02/19/19 at 17:52; Status DC Piperacillin Sod/ Tazobactam Sod 3.375 gm/Sodium Chloride 50 ml @ 100 mls/hr 1X ONCE IV Last administered on 02/19/19 18:12; Start 02/19/19 at 17:30; Stop 02/19/19 at 17:59; Status DC Fentanyl Citrate (Fentanyl 2ml Vial) 50 mcg PRN Q1HR PRN IV PAIN Last administered on 02/20/19 01:38; Start 02/19/19 at 17:15; Stop 02/20/19 at 23:00 Dicyclomine HCl (Bentyl) 10 mg PRN QID PRN IM STOMACH CRAMPING; Start 02/19/19 at 18:45; Stop 02/20/19 at 15:18; Status DC Dicyclomine HCl (Bentyl) 10 mg TID PO Last administered on 02/20/19at 12:29; Start 02/19/19 at 21:00 Alprazolam (Xanax) 1 mg TID PRN PRN PO ANXIETY / AGITATION Last administered on 02/19/19at 22:00; Start 02/19/19 at 18:45 Furosemide (Lasix) 50 mg Q3DAYS PRN PO SEE COMMENTS; Start 02/19/19 at 18:45; Stop 02/19/19 at 23:24; Status DC Acetaminophen/ Hydrocodone Bitart (Lortab 5/325) 1 tab PRN Q6HRS PRN PO PAIN; Start 02/19/19 at 18:45; Stop 02/19/19 at 19:00; Status DC Acetaminophen/ Hydrocodone Bitart (Lortab 5/325) 1 tab PRN Q6HRS PRN PO PAIN MILD TO MOD Last administered on 02/20/19at 07:15; Start 02/19/19 at 18:45 Levofloxacin (Levaquin) 500 mg DAILY PO ; Start 02/20/19 at 09:00; Stop 02/19/19 at 23:24; Status DC Methocarbamol (Robaxin) 500 mg QID PO Last administered on 02/19/19at 22:01; Start 02/19/19 at 21:00; Stop 02/19/19 at 23:24; Status DC Metronidazole (Flagyl) 500 mg TID PO Last administered on 02/20/19 08:30; Start 02/19/19 at 21:00; Stop 02/20/19 at 10:26; Status DC Nicotine (Nicoderm Cq 14mg) 1 patch DAILY TD ; Start 02/19/19 at 19:15; Stop 02/19/19 at 23:24; Status DC Calcium/Vitamin D (Oscal D 500mg/ 200uts) 1 tab DAILY PO Last administered on 02/20/19at 08:29; Start 02/20/19 at 09:00 Citalopram Hydrobromide (CeleXA) 40 mg DAILY PO Last administered on 02/20/19 08:29; Start 02/20/19 at 09:00 Cetirizine HCl (ZyrTEC) 10 mg PRN DAILY PRN PO ALLERGIES; Start 02/20/19 at 09:00 Losartan Potassium (Cozaar) 100 mg DAILY PO ; Start 02/20/19 at 09:00; Stop 02/19/19 at 22:20; Status DC Multivitamins (Thera M Plus) 1 tab DAILY PO Last administered on 02/20/19 08:30; Start 02/20/19 at 09:00 Pantoprazole Sodium (Protonix) 40 mg BIDAC PO Last administered on 02/20/19at 06:08; Start 02/20/19 at 07:30 Ondansetron HCl (Zofran Odt) 4 mg PRN Q6HRS PRN PO NAUSEA/VOMITING; Start 02/19/19 at 19:15 Acetaminophen/ Hydrocodone Bitart (Lortab 5/325) 2 tab PRN Q6HRS PRN PO PAIN SEVERE; Start 02/19/19 at 19:15 Losartan Potassium (Cozaar) 100 mg HS PO Last administered on 02/19/19at 22:41; Start 02/19/19 at 22:30 Amino Acids/ Glycerin/ Electrolytes 1,000 ml @ 75 mls/hr [id number] IV Last adm inistered on 02/20/19at 00:52; Start 02/19/19 at 23:30 Piperacillin Sod/ Tazobactam Sod (Zosyn Per Pharmacy) 1 each PRN DAILY PRN MC SEE COMMENTS; Start 02/19/19 at 23:30 Piperacillin Sod/ Tazobactam Sod 3.375 gm/Sodium Chloride 50 ml @ 100 mls/hr Q6HRS IV Last administered on 02/20/19at 12:17; Start 02/20/19 at 00:00 Clonidine HCl (Catapres) 0.1 mg PRN Q2HR PRN PO HYPERTENSION; Start 02/20/19 at 04:15 Influenza Virus Vaccine Quadrival (Afluria Quad 2019- (3yr Up) Syringe) 0.5 ml ONCE ONCE VAX IM Last administered on 02/20/19at 12:21; Start 02/20/19 at 09:30; Stop 02/20/19 at 09:31; Status DC Lactobacillus Rhamnosus (Culturelle) 1 cap BID PO ; Start 02/20/19 at 21:00 Dicyclomine HCl (Bentyl) 10 mg PRN QID PRN PO ABDOMINAL CRAMPING; Start 02/20/19 at 15:15 Active Scripts Active [place] 5-325 Tablet (Acetaminophen/Hydrocodone Bitart) 1 Each Tablet 1-2 Tab PO Q6HRS PRN Zofran (Ondansetron Hcl) 4 Mg Tablet 1 Tab PO Q6HRS Flagyl (Metronidazole) 500 Mg Tablet 500 Mg PO TID Levaquin (Levofloxacin) 500 Mg Tablet 1 Tab PO DAILY [place] 5-325 Tablet (Acetaminophen/Hydrocodone Bitart) 1 Each Tablet 1 Tab PO PRN Q6HRS PRN Robaxin (Methocarbamol) 500 Mg Tablet 500 Mg PO QID Reported NICODERM CQ 14mg (Nicotine) 1 Each Patch.td24 1 Patch TD DAILY Prilosec Otc (Omeprazole Magnesium) 20 Mg Tablet.dr 20 Mg PO BID Claritin (Loratadine) 10 Mg Tablet 1 Tab PO PRN DAILY PRN Calcium 600 + D Tablet (Calcium Carbonate/Vitamin D3) 1 Each Tablet 1 Each PO DAILY Women's Daily Multivitamin (Multivit With Calcium,Iron,Min) 1 Each Tablet 1 Each PO DAILY Lexapro (Escitalopram Oxalate) 10 Mg Tablet 2 Tab PO DAILY Xanax (Alprazolam) 1 Mg Tablet 1 Mg PO TID PRN PRN Losartan Potassium 100 Mg Tablet 100 Mg PO HS Lasix (Furosemide) 40 Mg Tablet 50 Mg PO Q3DAYS PRN Allergies Allergies: Coded Allergies: No Known Drug Allergies (Unverified , 10/25/17) ROS Gastrointestinal: Yes Abdominal Pain Physical Exam General: Alert, Oriented X3, Cooperative, moderate distress HEENT: Atraumatic, EOMI Lungs: Normal air movement Abdomen: Soft, Other (TTP LLQ, well healed scar, no hernia) Extremities: No clubbing, No cyanosis Skin: No rashes, No breakdown Neuro: Normal speech, Sensation intact Psych/Mental Status: Mental status NL, Mood NL Vitals VITALS Vital Signs Date Time Temp Pulse Resp B/P (MAP) Pulse Ox O2 Delivery O2 Flow Rate FiO2 02/20/19 11:00 97.4 62 16 184/96 (125) 95 Room Air 97.4 02/20/19 08:30 2.0 Labs Labs Laboratory Tests Test 02/19/19 13:44 02/19/19 14:00 Urine Collection Type Unknown Urine Color Yellow Urine Clarity Clear Urine pH 5.5 Urine Specific [place] 1.010 Urine Protein Negative mg/dL (NEG-TRACE) Urine Glucose (UA) Negative mg/dL (NEG) Urine Ketones (Stick) Negative mg/dL (NEG) Urine Blood Negative (NEG) Urine Nitrite Negative (NEG) Urine Bilirubin Negative (NEG) Urine Urobilinogen Dipstick 0.2 mg/dL (0.2 mg/dL) Urine Leukocyte Esterase Negative (NEG) Urine RBC 0 /HPF (0-2) Urine WBC 0 /HPF (0-4) Urine Squamous Epithelial Cells Few /LPF Urine Bacteria 0 /HPF (0-FEW) White Blood Count 5.3 x10^3/uL (4.0-11.0) Red Blood Count 4.32 x10^6/uL (3.50-5.40) Hemoglobin 13.2 g/dL (12.0-15.5) Hematocrit 39.0 % (36.0-47.0) Mean Corpuscular Volume 90 fL (79-100) Mean Corpuscular Hemoglobin 31 pg (25-35) Mean Corpuscular Hemoglobin Concent 34 g/dL (31-37) Red Cell Distribution Width 13.7 % (11.5-14.5) Platelet Count 212 x10^3/uL (140-400) Neutrophils (%) (Auto) 57 % (31-73) Lymphocytes (%) (Auto) 30 % (24-48) Monocytes (%) (Auto) 8 % (0-9) Eosinophils (%) (Auto) 4 % (0-3) Basophils (%) (Auto) 1 % (0-3) Neutrophils # (Auto) 3.0 x10^3/uL (1.8-7.7) Lymphocytes # (Auto) 1.6 x10^3/uL (1.0-4.8) Monocytes # (Auto) 0.4 x10^3/uL (0.0-1.1) Eosinophils # (Auto) 0.2 x10^3/uL (0.0-0.7) Basophils # (Auto) 0.0 x10^3/uL (0.0-0.2) Sodium Level 143 mmol/L (136-145) Potassium Level 4.1 mmol/L (3.5-5.1) Chloride Level 106 mmol/L (98-107) Carbon Dioxide Level 25 mmol/L (21-32) Anion Gap 12 (6-14) Blood Urea Nitrogen 13 mg/dL (7-20) Creatinine 1.2 mg/dL (0.6-1.0) Estimated GFR (Cockcroft-Gault) 45.4 BUN/Creatinine Ratio 11 (6-20) Glucose Level 95 mg/dL (70-99) Calcium Level 9.3 mg/dL (8.5-10.1) Total Bilirubin 0.5 mg/dL (0.2-1.0) Aspartate Amino Transf (AST/SGOT) 27 U/L (15-37) Alanine Aminotransferase (ALT/SGPT) 29 U/L (14-59) Alkaline Phosphatase 61 U/L (46-116) Total Protein 7.0 g/dL (6.4-8.2) Albumin 3.8 g/dL (3.4-5.0) Albumin/Globulin Ratio 1.2 (1.0-1.7) Lipase 151 U/L (73-393) Thyroid Stimulating Hormone (TSH) 3.498 uIU/mL (0.358-3.74) Images Images Ct c/w diverticulitis, no abscess Assessment/Plan Assessment/Plan Diverticulitis given multiple recurrent issues, would potentially benefit from repeat resection. Agree with abx and bowel rest currently. Thanks for consult! ANGELA PULIDO MD Feb 20, 2019 15:29
[2019-02-20] MEDS: LOSARTAN POTASSIUM 50 MG TABLET. PO SCH (21:12)
[2019-02-20] MEDS: LACTOBACILLUS RHAMNOSUS GG 1 CAPSULE. PO SCH (21:13)
[2019-02-20] MEDS: cloNIDine HCL 0.1 MG TABLET PO PRN (21:13)
[2019-02-21] MEDS: PIPERACILLIN/TAZOBACTAM 3.375 GM in IV NORMAL SALINE 50ML 50 ML IV SCH ×3 (00:43→12:00)
[2019-02-21] MEDS: AMINO AC 3%/ELECTROLYTE/GLYCER 1,000 ML IV SCH (02:10)
[2019-02-21 03:00] VITALS: BP 169/99
[2019-02-21 05:00] LABS: BASO % 1 % (0-3); EOS # 0.3 x10^3/uL (0.0-0.7); EOS % 5 % (0-3); HEMATOCRIT 36.8 % (36.0-47.0); HEMOGLOBIN 12.5 g/dL (12.0-15.5); LYMPH # 1.5 x10^3/uL (1.0-4.8); LYMPH % 33 % (24-48); MEAN CORPUSCULAR HEMOGLOBIN 31 pg (25-35); MEAN CORPUSCULAR HGB CONC 34 g/dL (31-37); MEAN CORPUSCULAR VOLUME 91 fL (79-100); MONO # 0.4 x10^3/uL (0.0-1.1); MONO % 9 % (0-9); NEUT # 2.5 x10^3/uL (1.8-7.7); NEUT % 53 % (31-73); PLATELET COUNT 188 x10^3/uL (140-400); RED BLOOD COUNT 4.03 x10^6/uL (3.50-5.40); RED CELL DISTRIBUTION WIDTH 13.6 % (11.5-14.5); WHITE BLOOD COUNT 4.7 x10^3/uL (4.0-11.0)
[2019-02-21 05:25] LABS: ALBUMIN 3.2 g/dL (3.4-5.0); ALBUMIN/GLOBULIN RATIO 0.9 (1.0-1.7); CALCIUM 8.8 mg/dL (8.5-10.1); CREATININE 1.1 mg/dL (0.6-1.0); GFR 50.2; POTASSIUM 4.1 mmol/L (3.5-5.1); TOTAL BILIRUBIN 0.4 mg/dL (0.2-1.0); TOTAL PROTEIN 6.6 g/dL (6.4-8.2)
[2019-02-21] MEDS: PANTOPRAZOLE 40 MG TABLET.DR. PO SCH (06:14)
[2019-02-21 07:00] VITALS: BP 178/101
[2019-02-21] MEDS: cloNIDine HCL 0.1 MG TABLET PO PRN (07:04)
--- NOTE | 2019-02-21 08:25 | PDOC ---
XIN COTA INSIGHTS MANAGER 02/21/19 0825: SURGICAL PROGRESS NOTE Subjective resting reports overall improvement tolerating a regular diet Vital Signs Vital Signs Date Time Temp Pulse Resp B/P (MAP) Pulse Ox O2 Delivery O2 Flow Rate FiO2 02/21/19 07:04 59 169/99 02/21/19 03:00 97.6 18 95 Room Air 97.6 02/20/19 20:00 2.0 I&O Intake and Output 02/21/19 07:00 Intake Total 420 ml Balance 420 ml Intake Oral 420 ml # Voids 4 General: Alert, Oriented X3, Cooperative, No acute distress Abdomen: Soft, No tenderness Labs Laboratory Tests Test 02/19/19 13:44 02/19/19 14:00 02/21/19 04:00 02/21/19 04:10 Urine Collection Type Unknown Urine Color Yellow Urine Clarity Clear Urine pH 5.5 Urine Specific [place] 1.010 Urine Protein Negative mg/dL (NEG-TRACE) Urine Glucose (UA) Negative mg/dL (NEG) Urine Ketones (Stick) Negative mg/dL (NEG) Urine Blood Negative (NEG) Urine Nitrite Negative (NEG) Urine Bilirubin Negative (NEG) Urine Urobilinogen Dipstick 0.2 mg/dL (0.2 mg/dL) Urine Leukocyte Esterase Negative (NEG) Urine RBC 0 /HPF (0-2) Urine WBC 0 /HPF (0-4) Urine Squamous Epithelial Cells Few /LPF Urine Bacteria 0 /HPF (0-FEW) White Blood Count 5.3 x10^3/uL (4.0-11.0) 4.7 x10^3/uL (4.0-11.0) Red Blood Count 4.32 x10^6/uL (3.50-5.40) 4.03 x10^6/uL (3.50-5.40) Hemoglobin 13.2 g/dL (12.0-15.5) 12.5 g/dL (12.0-15.5) Hematocrit 39.0 % (36.0-47.0) 36.8 % (36.0-47.0) Mean Corpuscular Volume 90 fL (79-100) 91 fL (79-100) Mean Corpuscular Hemoglobin 31 pg (25-35) 31 pg (25-35) Mean Corpuscular Hemoglobin Concent 34 g/dL (31-37) 34 g/dL (31-37) Red Cell Distribution Width 13.7 % (11.5-14.5) 13.6 % (11.5-14.5) Platelet Count 212 x10^3/uL (140-400) 188 x10^3/uL (140-400) Neutrophils (%) (Auto) 57 % (31-73) 53 % (31-73) Lymphocytes (%) (Auto) 30 % (24-48) 33 % (24-48) Monocytes (%) (Auto) 8 % (0-9) 9 % (0-9) Eosinophils (%) (Auto) 4 % (0-3) 5 % (0-3) Basophils (%) (Auto) 1 % (0-3) 1 % (0-3) Neutrophils # (Auto) 3.0 x10^3/uL (1.8-7.7) 2.5 x10^3/uL (1.8-7.7) Lymphocytes # (Auto) 1.6 x10^3/uL (1.0-4.8) 1.5 x10^3/uL (1.0-4.8) Monocytes # (Auto) 0.4 x10^3/uL (0.0-1.1) 0.4 x10^3/uL (0.0-1.1) Eosinophils # (Auto) 0.2 x10^3/uL (0.0-0.7) 0.3 x10^3/uL (0.0-0.7) Basophils # (Auto) 0.0 x10^3/uL (0.0-0.2) 0.0 x10^3/uL (0.0-0.2) Sodium Level 143 mmol/L (136-145) 142 mmol/L (136-145) Potassium Level 4.1 mmol/L (3.5-5.1) 4.1 mmol/L (3.5-5.1) Chloride Level 106 mmol/L (98-107) 105 mmol/L (98-107) Carbon Dioxide Level 25 mmol/L (21-32) 29 mmol/L (21-32) Anion Gap 12 (6-14) 8 (6-14) Blood Urea Nitrogen 13 mg/dL (7-20) 15 mg/dL (7-20) Creatinine 1.2 mg/dL (0.6-1.0) 1.1 mg/dL (0.6-1.0) Estimated GFR (Cockcroft-Gault) 45.4 50.2 BUN/Creatinine Ratio 11 (6-20) 14 (6-20) Glucose Level 95 mg/dL (70-99) 112 mg/dL (70-99) Calcium Level 9.3 mg/dL (8.5-10.1) 8.8 mg/dL (8.5-10.1) Total Bilirubin 0.5 mg/dL (0.2-1.0) 0.4 mg/dL (0.2-1.0) Aspartate Amino Transf (AST/SGOT) 27 U/L (15-37) 27 U/L (15-37) Alanine Aminotransferase (ALT/SGPT) 29 U/L (14-59) 29 U/L (14-59) Alkaline Phosphatase 61 U/L (46-116) 54 U/L (46-116) Total Protein 7.0 g/dL (6.4-8.2) 6.6 g/dL (6.4-8.2) Albumin 3.8 g/dL (3.4-5.0) 3.2 g/dL (3.4-5.0) Albumin/Globulin Ratio 1.2 (1.0-1.7) 0.9 (1.0-1.7) Lipase 151 U/L (73-393) Thyroid Stimulating Hormone (TSH) 3.498 uIU/mL (0.358-3.74) Laboratory Tests Test 02/21/19 04:00 02/21/19 04:10 White Blood Count 4.7 x10^3/uL (4.0-11.0) Red Blood Count 4.03 x10^6/uL (3.50-5.40) Hemoglobin 12.5 g/dL (12.0-15.5) Hematocrit 36.8 % (36.0-47.0) Mean Corpuscular Volume 91 fL (79-100) Mean Corpuscular Hemoglobin 31 pg (25-35) Mean Corpuscular Hemoglobin Concent 34 g/dL (31-37) Red Cell Distribution Width 13.6 % (11.5-14.5) Platelet Count 188 x10^3/uL (140-400) Neutrophils (%) (Auto) 53 % (31-73) Lymphocytes (%) (Auto) 33 % (24-48) Monocytes (%) (Auto) 9 % (0-9) Eosinophils (%) (Auto) 5 % (0-3) Basophils (%) (Auto) 1 % (0-3) Neutrophils # (Auto) 2.5 x10^3/uL (1.8-7.7) Lymphocytes # (Auto) 1.5 x10^3/uL (1.0-4.8) Monocytes # (Auto) 0.4 x10^3/uL (0.0-1.1) Eosinophils # (Auto) 0.3 x10^3/uL (0.0-0.7) Basophils # (Auto) 0.0 x10^3/uL (0.0-0.2) Sodium Level 142 mmol/L (136-145) Potassium Level 4.1 mmol/L (3.5-5.1) Chloride Level 105 mmol/L (98-107) Carbon Dioxide Level 29 mmol/L (21-32) Anion Gap 8 (6-14) Blood Urea Nitrogen 15 mg/dL (7-20) Creatinine 1.1 mg/dL (0.6-1.0) Estimated GFR (Cockcroft-Gault) 50.2 BUN/Creatinine Ratio 14 (6-20) Glucose Level 112 mg/dL (70-99) Calcium Level 8.8 mg/dL (8.5-10.1) Total Bilirubin 0.4 mg/dL (0.2-1.0) Aspartate Amino Transf (AST/SGOT) 27 U/L (15-37) Alanine Aminotransferase (ALT/SGPT) 29 U/L (14-59) Alkaline Phosphatase 54 U/L (46-116) Total Protein 6.6 g/dL (6.4-8.2) Albumin 3.2 g/dL (3.4-5.0) Albumin/Globulin Ratio 0.9 (1.0-1.7) Problem List Problems Medical Problems: (1) Diverticulitis Status: Acute Assessment/Plan stable continue x ANGELA PULIDO MD 02/21/19 0933: SURGICAL PROGRESS NOTE Assessment/Plan Pt seen and examined. Agree with Patrick Cota's note Pt feels like she turned a corner for the better abd soft, ND, NTTP cont supportive care, would consider elective resection, but she will try lifestyle modification first. XIN COTA APRN Feb 21, 2019 08:25 ANGELA PULIDO MD Feb 21, 2019 09:33
[2019-02-21] MEDS: MULTIVITAMIN with MINERAL TABLET. PO SCH (09:07)
[2019-02-21] MEDS: DICYCLOMINE HCL 10 MG CAPSULE PO SCH (09:07)
[2019-02-21] MEDS: CITALOPRAM 20 MG TABLET. PO SCH (09:07)
[2019-02-21] MEDS: LACTOBACILLUS RHAMNOSUS GG 1 CAPSULE. PO SCH (09:07)
[2019-02-21] MEDS: CALCIUM CARB/VIT D3 500/200 TABLET. PO SCH (09:07)
--- NOTE | 2019-02-21 09:31 | PDOC ---
[employer] PROGRESS NOTE Chief Complaint Chief Complaint Abdominal pain. Diverticulitis History of Present Illness History of Present Illness 02/21/19 Pt seen and examined Pt was sitting up in bed eating breakfast. She states her appetite has returned and she has tolerated breakfast On nasal cannula oxygen, 2L Charts and labs reviewed PT feels ready to be discharged DW RN 02/20/19 Pt seen and examined at bedside Pt has hx of diverticulitis and colon resections Pt was pleasant On nasal cannula oxygen, 2L Pt tolerating liquid diets Charts and labs reviewed CT Abd IMPRESSION: 1. Findings of diverticulitis at the mid descending colon. No evidence for perforation or abscess. As this is the same location of diverticulitis as on the prior CT a colonoscopy posttreatment is highly recommended to ensure that there is no underlying lesion. 2. Other stable findings described above. D/w RN Vitals/I&O Vitals/I&O: Vital Signs Date Time Temp Pulse Resp B/P (MAP) Pulse Ox O2 Delivery O2 Flow Rate FiO2 02/21/19 08:00 Room Air 02/21/19 07:04 59 169/99 02/21/19 07:00 97.4 18 96 97.4 02/20/19 20:00 2.0 I & O 02/20/19 02/20/19 02/21/19 15:00 23:00 07:00 Intake Total 300 ml 120 ml Balance 300 ml 120 ml Physical Exam General: Alert, Oriented X3, Cooperative, No acute distress Heart: Regular rate, Normal S1, Normal S2 Lungs: Clear Abdomen: Soft, No tenderness Extremities: No clubbing, No cyanosis Skin: No rashes, No breakdown Labs Labs: Laboratory Tests Test 02/21/19 04:00 02/21/19 04:10 White Blood Count 4.7 x10^3/uL (4.0-11.0) Red Blood Count 4.03 x10^6/uL (3.50-5.40) Hemoglobin 12.5 g/dL (12.0-15.5) Hematocrit 36.8 % (36.0-47.0) Mean Corpuscular Volume 91 fL (79-100) Mean Corpuscular Hemoglobin 31 pg (25-35) Mean Corpuscular Hemoglobin Concent 34 g/dL (31-37) Red Cell Distribution Width 13.6 % (11.5-14.5) Platelet Count 188 x10^3/uL (140-400) Neutrophils (%) (Auto) 53 % (31-73) Lymphocytes (%) (Auto) 33 % (24-48) Monocytes (%) (Auto) 9 % (0-9) Eosinophils (%) (Auto) 5 % (0-3) Basophils (%) (Auto) 1 % (0-3) Neutrophils # (Auto) 2.5 x10^3/uL (1.8-7.7) Lymphocytes # (Auto) 1.5 x10^3/uL (1.0-4.8) Monocytes # (Auto) 0.4 x10^3/uL (0.0-1.1) Eosinophils # (Auto) 0.3 x10^3/uL (0.0-0.7) Basophils # (Auto) 0.0 x10^3/uL (0.0-0.2) Sodium Level 142 mmol/L (136-145) Potassium Level 4.1 mmol/L (3.5-5.1) Chloride Level 105 mmol/L (98-107) Carbon Dioxide Level 29 mmol/L (21-32) Anion Gap 8 (6-14) Blood Urea Nitrogen 15 mg/dL (7-20) Creatinine 1.1 mg/dL (0.6-1.0) Estimated GFR (Cockcroft-Gault) 50.2 BUN/Creatinine Ratio 14 (6-20) Glucose Level 112 mg/dL (70-99) Calcium Level 8.8 mg/dL (8.5-10.1) Total Bilirubin 0.4 mg/dL (0.2-1.0) Aspartate Amino Transf (AST/SGOT) 27 U/L (15-37) Alanine Aminotransferase (ALT/SGPT) 29 U/L (14-59) Alkaline Phosphatase 54 U/L (46-116) Total Protein 6.6 g/dL (6.4-8.2) Albumin 3.2 g/dL (3.4-5.0) Albumin/Globulin Ratio 0.9 (1.0-1.7) Review of Systems Review of Systems: Denies n/v/d Denies pain Assessment and Plan Assessmemt and Plan Problems Medical Problems: (1) Diverticulitis Status: Acute Assessment Diverticulosis/itis HTN GALEN hepatic steatosis GERD anxiety/depression Plan Continue full diet IV abx DVT prophylaxis Labs Full code Home meds Appreciate GI input Probable discharge home today Comment Review of Relevant I have reviewed the following items tish (where applicable) has been applied. Medications: Current Medications Medications (Trade) Dose Ordered Sig/Gregorio Route PRN Reason Start Time Stop Time Status Last Admin Dose Admin Influenza Virus Vaccine Quadrival (Afluria Quad (3yr Up) Syringe) 0.5 ml ONCE ONCE VAX IM 02/20/19 09:30 02/20/19 09:31 DC 02/20/19 12:21 Lactobacillus Rhamnosus (Culturelle) 1 cap BID PO 02/20/19 21:00 02/21/19 09:07 ULISSES KING III DO Feb 21, 2019 09:31
[2019-02-21 11:00] VITALS: BP 134/68
--- NOTE | 2019-02-21 11:04 | PDOC ---
[facility] PROGRESS NOTE Reason for Follow-up abd pain Subjective imoved pain/tolerating po Physical Exam Lungs clear CV S1 S2 ABD +BS, soft, mild LLQ tenderness to palpation Review of Relevant I have reviewed the following items tish (where applicable) has been applied. Labs Laboratory Tests Test 02/19/19 13:44 02/19/19 14:00 02/21/19 04:00 02/21/19 04:10 Urine Collection Type Unknown Urine Color Yellow Urine Clarity Clear Urine pH 5.5 Urine Specific [place] 1.010 Urine Protein Negative mg/dL (NEG-TRACE) Urine Glucose (UA) Negative mg/dL (NEG) Urine Ketones (Stick) Negative mg/dL (NEG) Urine Blood Negative (NEG) Urine Nitrite Negative (NEG) Urine Bilirubin Negative (NEG) Urine Urobilinogen Dipstick 0.2 mg/dL (0.2 mg/dL) Urine Leukocyte Esterase Negative (NEG) Urine RBC 0 /HPF (0-2) Urine WBC 0 /HPF (0-4) Urine Squamous Epithelial Cells Few /LPF Urine Bacteria 0 /HPF (0-FEW) White Blood Count 5.3 x10^3/uL (4.0-11.0) 4.7 x10^3/uL (4.0-11.0) Red Blood Count 4.32 x10^6/uL (3.50-5.40) 4.03 x10^6/uL (3.50-5.40) Hemoglobin 13.2 g/dL (12.0-15.5) 12.5 g/dL (12.0-15.5) Hematocrit 39.0 % (36.0-47.0) 36.8 % (36.0-47.0) Mean Corpuscular Volume 90 fL (79-100) 91 fL (79-100) Mean Corpuscular Hemoglobin 31 pg (25-35) 31 pg (25-35) Mean Corpuscular Hemoglobin Concent 34 g/dL (31-37) 34 g/dL (31-37) Red Cell Distribution Width 13.7 % (11.5-14.5) 13.6 % (11.5-14.5) Platelet Count 212 x10^3/uL (140-400) 188 x10^3/uL (140-400) Neutrophils (%) (Auto) 57 % (31-73) 53 % (31-73) Lymphocytes (%) (Auto) 30 % (24-48) 33 % (24-48) Monocytes (%) (Auto) 8 % (0-9) 9 % (0-9) Eosinophils (%) (Auto) 4 % (0-3) 5 % (0-3) Basophils (%) (Auto) 1 % (0-3) 1 % (0-3) Neutrophils # (Auto) 3.0 x10^3/uL (1.8-7.7) 2.5 x10^3/uL (1.8-7.7) Lymphocytes # (Auto) 1.6 x10^3/uL (1.0-4.8) 1.5 x10^3/uL (1.0-4.8) Monocytes # (Auto) 0.4 x10^3/uL (0.0-1.1) 0.4 x10^3/uL (0.0-1.1) Eosinophils # (Auto) 0.2 x10^3/uL (0.0-0.7) 0.3 x10^3/uL (0.0-0.7) Basophils # (Auto) 0.0 x10^3/uL (0.0-0.2) 0.0 x10^3/uL (0.0-0.2) Sodium Level 143 mmol/L (136-145) 142 mmol/L (136-145) Potassium Level 4.1 mmol/L (3.5-5.1) 4.1 mmol/L (3.5-5.1) Chloride Level 106 mmol/L (98-107) 105 mmol/L (98-107) Carbon Dioxide Level 25 mmol/L (21-32) 29 mmol/L (21-32) Anion Gap 12 (6-14) 8 (6-14) Blood Urea Nitrogen 13 mg/dL (7-20) 15 mg/dL (7-20) Creatinine 1.2 mg/dL (0.6-1.0) 1.1 mg/dL (0.6-1.0) Estimated GFR (Cockcroft-Gault) 45.4 50.2 BUN/Creatinine Ratio 11 (6-20) 14 (6-20) Glucose Level 95 mg/dL (70-99) 112 mg/dL (70-99) Calcium Level 9.3 mg/dL (8.5-10.1) 8.8 mg/dL (8.5-10.1) Total Bilirubin 0.5 mg/dL (0.2-1.0) 0.4 mg/dL (0.2-1.0) Aspartate Amino Transf (AST/SGOT) 27 U/L (15-37) 27 U/L (15-37) Alanine Aminotransferase (ALT/SGPT) 29 U/L (14-59) 29 U/L (14-59) Alkaline Phosphatase 61 U/L (46-116) 54 U/L (46-116) Total Protein 7.0 g/dL (6.4-8.2) 6.6 g/dL (6.4-8.2) Albumin 3.8 g/dL (3.4-5.0) 3.2 g/dL (3.4-5.0) Albumin/Globulin Ratio 1.2 (1.0-1.7) 0.9 (1.0-1.7) Lipase 151 U/L (73-393) Thyroid Stimulating Hormone (TSH) 3.498 uIU/mL (0.358-3.74) Laboratory Tests Test 02/21/19 04:00 02/21/19 04:10 White Blood Count 4.7 x10^3/uL (4.0-11.0) Red Blood Count 4.03 x10^6/uL (3.50-5.40) Hemoglobin 12.5 g/dL (12.0-15.5) Hematocrit 36.8 % (36.0-47.0) Mean Corpuscular Volume 91 fL (79-100) Mean Corpuscular Hemoglobin 31 pg (25-35) Mean Corpuscular Hemoglobin Concent 34 g/dL (31-37) Red Cell Distribution Width 13.6 % (11.5-14.5) Platelet Count 188 x10^3/uL (140-400) Neutrophils (%) (Auto) 53 % (31-73) Lymphocytes (%) (Auto) 33 % (24-48) Monocytes (%) (Auto) 9 % (0-9) Eosinophils (%) (Auto) 5 % (0-3) Basophils (%) (Auto) 1 % (0-3) Neutrophils # (Auto) 2.5 x10^3/uL (1.8-7.7) Lymphocytes # (Auto) 1.5 x10^3/uL (1.0-4.8) Monocytes # (Auto) 0.4 x10^3/uL (0.0-1.1) Eosinophils # (Auto) 0.3 x10^3/uL (0.0-0.7) Basophils # (Auto) 0.0 x10^3/uL (0.0-0.2) Sodium Level 142 mmol/L (136-145) Potassium Level 4.1 mmol/L (3.5-5.1) Chloride Level 105 mmol/L (98-107) Carbon Dioxide Level 29 mmol/L (21-32) Anion Gap 8 (6-14) Blood Urea Nitrogen 15 mg/dL (7-20) Creatinine 1.1 mg/dL (0.6-1.0) Estimated GFR (Cockcroft-Gault) 50.2 BUN/Creatinine Ratio 14 (6-20) Glucose Level 112 mg/dL (70-99) Calcium Level 8.8 mg/dL (8.5-10.1) Total Bilirubin 0.4 mg/dL (0.2-1.0) Aspartate Amino Transf (AST/SGOT) 27 U/L (15-37) Alanine Aminotransferase (ALT/SGPT) 29 U/L (14-59) Alkaline Phosphatase 54 U/L (46-116) Total Protein 6.6 g/dL (6.4-8.2) Albumin 3.2 g/dL (3.4-5.0) Albumin/Globulin Ratio 0.9 (1.0-1.7) Medications Current Medications Sodium Chloride 1,000 ml @ 1,000 mls/hr 1X ONCE IV Last administered on 02/19/19at 14:23; Start 02/19/19 at 13:45; Stop 02/19/19 at 14:44; Status DC Morphine Sulfate (Morphine Sulfate) 4 mg 1X ONCE IV Last administered on 02/19/19at 14:39; Start 02/19/19 at 13:45; Stop 02/19/19 at 13:46; Status DC Ondansetron HCl (Zofran) 4 mg 1X ONCE IV Last administered on 02/19/19at 14:23; Start 02/19/19 at 13:45; Stop 02/19/19 at 13:46; Status DC Iohexol (Omnipaque 300 Mg/ml) 60 ml 1X ONCE IV Last administered on 02/19/19 16:03; Start 02/19/19 at 16:00; Stop 02/19/19 at 16:01; Status DC Fentanyl Citrate (Fentanyl 2ml Vial) 50 mcg 1X STAT IV Last administered on 02/19/19at 15:55; Start 02/19/19 at 15:50; Stop 02/19/19 at 15:52; Status DC Ciprofloxacin/ Dextrose 200 ml @ 200 mls/hr 1X ONCE IV ; Start 02/19/19 at 17:30; Stop 02/19/19 at 17:09; Status DC Metronidazole 100 ml @ 100 mls/hr 1X STAT IV Last administered on 02/19/19 17:06; Start 02/19/19 at 16:53; Stop 02/19/19 at 17:52; Status DC Piperacillin Sod/ Tazobactam Sod 3.375 gm/Sodium Chloride 50 ml @ 100 mls/hr 1X ONCE IV Last administered on 02/19/19 18:12; Start 02/19/19 at 17:30; Stop 02/19/19 at 17:59; Status DC Fentanyl Citrate (Fentanyl 2ml Vial) 50 mcg PRN Q1HR PRN IV PAIN Last administered on 02/20/19at 01:38; Start 02/19/19 at 17:15; Stop 02/20/19 at 23:00; Status DC Dicyclomine HCl (Bentyl) 10 mg PRN QID PRN IM STOMACH CRAMPING; Start 02/19/19 at 18:45; Stop 02/20/19 at 15:18; Status DC Dicyclomine HCl (Bentyl) 10 mg TID PO Last administered on 02/21/19at 09:07; Start 02/19/19 at 21:00 Alprazolam (Xanax) 1 mg TID PRN PRN PO ANXIETY / AGITATION Last administered on 02/19/19at 22:00; Start 02/19/19 at 18:45 Furosemide (Lasix) 50 mg Q3DAYS PRN PO SEE COMMENTS; Start 02/19/19 at 18:45; Stop 02/19/19 at 23:24; Status DC Acetaminophen/ Hydrocodone Bitart (Lortab 5/325) 1 tab PRN Q6HRS PRN PO PAIN; Start 02/19/19 at 18:45; Stop 02/19/19 at 19:00; Status DC Acetaminophen/ Hydrocodone Bitart (Lortab 5/325) 1 tab PRN Q6HRS PRN PO PAIN MILD TO MOD Last administered on 02/20/19at 07:15; Start 02/19/19 at 18:45 Levofloxacin (Levaquin) 500 mg DAILY PO ; Start 02/20/19 at 09:00; Stop 02/19/19 at 23:24; Status DC Methocarbamol (Robaxin) 500 mg QID PO Last administered on 02/19/19at 22:01; Start 02/19/19 at 21:00; Stop 02/19/19 at 23:24; Status DC Metronidazole (Flagyl) 500 mg TID PO Last administered on 02/20/19at 08:30; Start 02/19/19 at 21:00; Stop 02/20/19 at 10:26; Status DC Nicotine (Nicoderm Cq 14mg) 1 patch DAILY TD ; Start 02/19/19 at 19:15; Stop 02/19/19 at 23:24; Status DC Calcium/Vitamin D (Oscal D 500mg/ 200uts) 1 tab DAILY PO Last administered on 02/21/19at 09:07; Start 02/20/19 at 09:00 Citalopram Hydrobromide (CeleXA) 40 mg DAILY PO Last administered on 02/21/19at 09:07; Start 02/20/19 at 09:00 Cetirizine HCl (ZyrTEC) 10 mg PRN DAILY PRN PO ALLERGIES; Start 02/20/19 at 09:00 Losartan Potassium (Cozaar) 100 mg DAILY PO ; Start 02/20/19 at 09:00; Stop 02/19/19 at 22:20; Status DC Multivitamins (Thera M Plus) 1 tab DAILY PO Last administered on 02/21/19at 09:07; Start 02/20/19 at 09:00 Pantoprazole Sodium (Protonix) 40 mg BIDAC PO Last administered on 02/21/19at 06:14; Start 02/20/19 at 07:30 Ondansetron HCl (Zofran Odt) 4 mg PRN Q6HRS PRN PO NAUSEA/VOMITING; Start 02/19/19 at 19:15 Acetaminophen/ Hydrocodone Bitart (Lortab 5/325) 2 tab PRN Q6HRS PRN PO PAIN SEVERE; Start 02/19/19 at 19:15 Losartan Potassium (Cozaar) 100 mg HS PO Last administered on 02/20/19at 21:12; Start 02/19/19 at 22:30 Amino Acids/ Glycerin/ Electrolytes 1,000 ml @ 75 mls/hr [id number] IV Last administered on 02/20/19at 15:52; Start 02/19/19 at 23:30 Piperacillin Sod/ Tazobactam Sod (Zosyn Per Pharmacy) 1 each PRN DAILY PRN MC SEE COMMENTS; Start 02/19/19 at 23:30 Piperacillin Sod/ Tazobactam Sod 3.375 gm/Sodium Chloride 50 ml @ 100 mls/hr Q6HRS IV Last administered on 02/21/19at 06:14; Start 02/20/19 at 00:00 Clonidine HCl (Catapres) 0.1 mg PRN Q2HR PRN PO HYPERTENSION Last administered on 02/21/19at 07:04; Start 02/20/19 at 04:15 Influenza Virus Vaccine Quadrival (Afluria Quad 2019-20 (3yr Up) Syringe) 0.5 ml ONCE ONCE VAX IM Last administered on 02/20/19at 12:21; Start 02/20/19 at 09:30; Stop 02/20/19 at 09:31; Status DC Lactobacillus Rhamnosus (Culturelle) 1 cap BID PO Last administered on 02/21/19at 09:07; Start 02/20/19 at 21:00 Dicyclomine HCl (Bentyl) 10 mg PRN QID PRN PO ABDOMINAL CRAMPING; Start 02/20/19 at 15:15 Active Scripts Active [place] 5-325 Tablet (Acetaminophen/Hydrocodone Bitart) 1 Each Tablet 1-2 Tab PO Q6HRS PRN Zofran (Ondansetron Hcl) 4 Mg Tablet 1 Tab PO Q6HRS Flagyl (Metronidazole) 500 Mg Tablet 500 Mg PO TID Levaquin (Levofloxacin) 500 Mg Tablet 1 Tab PO DAILY [place] 5-325 Tablet (Acetaminophen/Hydrocodone Bitart) 1 Each Tablet 1 Tab PO PRN Q6HRS PRN Robaxin (Methocarbamol) 500 Mg Tablet 500 Mg PO QID Reported NICODERM CQ 14mg (Nicotine) 1 Each Patch.td24 1 Patch TD DAILY Prilosec Otc (Omeprazole Magnesium) 20 Mg Tablet.dr 20 Mg PO BID Claritin (Loratadine) 10 Mg Tablet 1 Tab PO PRN DAILY PRN Calcium 600 + D Tablet (Calcium Carbonate/Vitamin D3) 1 Each Tablet 1 Each PO DAILY Women's Daily Multivitamin (Multivit With Calcium,Iron,Min) 1 Each Tablet 1 Each PO DAILY Lexapro (Escitalopram Oxalate) 10 Mg Tablet 2 Tab PO DAILY Xanax (Alprazolam) 1 Mg Tablet 1 Mg PO TID PRN PRN Losartan Potassium 100 Mg Tablet 100 Mg PO HS Lasix (Furosemide) 40 Mg Tablet 50 Mg PO Q3DAYS PRN Vitals/I & O Vital Sign - Last 24 Hours 02/20/19 02/20/19 02/20/19 02/20/19 15:00 19:00 20:00 21:12 Temp 98.4 98.6 98.4 98.6 Pulse 60 60 60 Resp 16 18 B/P (MAP) 154/83 (106) 176/92 (120) 176/92 Pulse Ox 96 93 O2 Delivery Room Air Room Air Nasal Cannula O2 Flow Rate 2.0 02/20/19 02/20/19 02/21/19 02/21/19 21:13 23:00 03:00 07:00 Temp 98.7 97.6 97.4 98.7 97.6 97.4 Pulse 60 59 59 60 Resp 18 18 18 B/P (MAP) 176/92 163/96 (118) 169/99 (122) 178/101 (126) Pulse Ox 94 95 96 O2 Delivery Room Air Room Air Room Air 02/21/19 02/21/19 07:04 08:00 Pulse 59 B/P (MAP) 169/99 O2 Delivery Room Air Intake and Output 02/20/19 02/20/19 02/21/19 14:59 22:59 06:59 Intake Total 300 ml 120 ml Balance 300 ml 120 ml Problem List Problems Medical Problems: (1) Diverticulitis Status: Acute Assessment Acute diverticulitis- improivng with medical therapy, o/p antibiotics for ten days, surgical resection suggested, patient to consider ALEJANDRO CARTWRIGHT MD Feb 21, 2019 11:04
--- NOTE | 2019-02-21 14:33 | NUR ---
Discharge instructions reviewed with patient, verbalized understanding. Patient escorted out via ambulation.
--- NOTE | 2019-02-22 08:48 | DS ---
DATE OF DISCHARGE: 02/21/2019 ADMISSION DIAGNOSIS: Diverticulitis. DISCHARGE DIAGNOSIS: Resolving diverticulitis. 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 Basically, she presented with diverticulitis. We admitted her, gave her IV Zosyn because she had failed outpatient p.o. antibiotics. Over the next 3 days, she returned to her baseline. When we saw her and examined her yesterday, she was doing great, she wanted to go home. We discharged her home. DISPOSITION: Home. ACTIVITY: As tolerated. DIET: Soft, mechanical. FOLLOWUP: Follow up with PCP in 1 week. TOTAL TIME: 32 minutes. ULISSES KING DO DR: HALEY/gale JOB#: [id number] / [id number]
== END 2019-02-21 15:27 | disposition home or self-care (01) | DRG 392 ==
LOC: ER 13:05 → 4 NORTH 17:12
PROVIDERS: ADMIT Internal Medicine; ATTEND Internal Medicine
DX: K57.32 Diverticulitis of large intestine without perforation or abscess without bleeding (principal); F32.9 Major depressive disorder, single episode, unspecified; F41.9 Anxiety disorder, unspecified; G47.33 Obstructive sleep apnea (adult) (pediatric); I10 Essential (primary) hypertension; K59.00 Constipation, unspecified; K21.9 Gastro-esophageal reflux disease without esophagitis; K76.0 Fatty (change of) liver, not elsewhere classified; Z80.9 Family history of malignant neoplasm, unspecified; Z82.0 Family history of epilepsy and other diseases of the nervous system; Z82.49 Family history of ischemic heart disease and other diseases of the circulatory system; Z83.3 Family history of diabetes mellitus; Z90.49 Acquired absence of other specified parts of digestive tract; Z87.891 Personal history of nicotine dependence
CPT/HCPCS: 36415; 74177; 80053; 81001; 83690; 84443; 85025; 90471; 90686; 96361; 96365; 96368; 96375; J2270; J2405; J2543; J3010; J3490; J7030; Q9967; 99285-25; G0378

== ENCOUNTER 2019-03-06 13:11 | Inpatient (IN) | payer OTHER ==
[~2019-03-06] VITALS: Ht 172.7 cm; Wt 105.2 kg
[~2019-03-06 13:11] MED LIST changes: +LOSA100T14 PO
[2019-03-06] MEDS ORDERED: IV NORMAL SALINE 1000ML BAG 1,000 ML IV SCH (13:39)
[2019-03-06] MEDS ORDERED: HYDROmorphone 2 MG/ML VIAL IV ONE (13:45)
--- NOTE | 2019-03-06 13:47 | PHYS DOC ---
Past Medical History Past Medical History: Depression, Diverticulitis, Diverticulosis, Hypertension, Other Additional Past Medical Histor: SLEEP APNEA, SICK SINUS SYNDROME Past Surgical History: Pacemaker, Tonsillectomy, Other Additional Past Surgical Histo: BOWEL RESECTION, LAP BAND & REMOVAL OF BAND, gastric sleeve Alcohol Use: Occasionally Drug Use: None Adult General Chief Complaint Chief Complaint: ABDOMINAL PAIN HPI HPI Patient is a 63-year-old female who presents to the emergency department for evaluation. She has a past history of recurrent episodes of diverticulitis. She has had one prior bowel resection in the past for this. She states that earlier this month she developed diverticulitis, was treated with Levaquin and Flagyl, but did not improve and wound up being hospitalized here, on intravenous Zosyn, which did result in improvement in her symptoms. She was released from the hospital to complete the previously prescribed course of Levaquin and Zosyn, something she did, and completed it a few days ago. She states over the past 2 days she has had a recurrence of her left mid and lower abdominal pain. She has not had any fevers or chills, nausea, or vomiting. The pain feels exactly the same as her prior episodes of diverticulitis. The pain is nonradiating. It is described as a crampy achy pain. There are no alleviating or exacerbating factors to her symptoms otherwise. Review of Systems Review of Systems Constitutional: Denies fever or chills [] Eyes: Denies change in visual acuity, redness, or eye pain [] HENT: Denies nasal congestion or sore throat [] Respiratory: Denies cough or shortness of breath [] Cardiovascular: The patient denies any shortness of breath, chest pain, palpitations, or orthopnea [] GI: No additional information not addressed in HPI [] : Denies dysuria or hematuria [] Musculoskeletal: Denies back pain or joint pain [] Integument: Denies rash or skin lesions [] Neurologic: Denies headache, focal weakness or sensory changes [] Endocrine: Denies polyuria or polydipsia [] All other systems were reviewed and found to be within normal limits, except as documented in this note. Current Medications Current Medications Current Medications Medications (Trade) Dose Ordered Sig/Gregorio Start Time Stop Time Status Last Admin Dose Admin Hydromorphone HCl (Dilaudid) 1 mg 1X ONCE 03/06/19 13:45 03/06/19 13:46 DC 03/06/19 13:52 1 MG Info (CONTRAST GIVEN -- Rx MONITORING) 1 each PRN DAILY PRN 03/06/19 14:15 03/08/19 14:14 Iohexol (Omnipaque 300 Mg/ml) 60 ml 1X ONCE 03/06/19 14:15 03/06/19 14:16 DC 03/06/19 14:20 60 ML Sodium Chloride 1,000 ml @ 100 mls/hr Q10H 03/06/19 13:39 03/06/19 23:38 03/06/19 13:48 100 MLS/HR Allergies Allergies Allergies Coded Allergies Type Severity Reaction Last Updated Verified No Known Drug Allergies 10/25/17 No Physical Exam Physical Exam PHYSICAL EXAM: CONSTITUTIONAL: Well developed, well nourished HEAD: normocephalic, atraumatic EENT: PERRL, EOMI. Conjunctivae normal color, sclerae non-icteric; moist mucous membranes. NECK: Supple, non-tender; no meningismus. LUNGS: Lungs CTA, breathing even and unlabored. Normal air movement. HEART: Regular rate and rhythm, no murmur CHEST: No deformity; non-tender ABDOMEN: The abdomen is soft, there is tenderness to palpation in the mid and left abdomen, without rebound or guarding, normal bowel sounds are present for the remainder the abdomen is soft and non-tender, no masses or bruits. EXTREM: Normal ROM; no deformity, no calf tenderness. Normal pulses palpable in all extremities. There is no pedal edema. SKIN: No rash; no diaphoresis NEURO: Alert; normal speech and cognition; CN's grossly intact; strength grossly intact without focal deficit. BACK: No CVA TTP. Current Patient Data Vital Signs Vital Signs Date Time Temp Pulse Resp B/P (MAP) Pulse Ox O2 Delivery O2 Flow Rate FiO2 03/06/19 13:52 16 03/06/19 13:35 60 190/103 (132) 98 Room Air Lab Values Laboratory Tests Test 03/06/19 13:15 03/06/19 13:34 Urine Collection Type Unknown Urine Color Nancy Urine Clarity Clear Urine pH 5.5 Urine Specific [place] 1.020 Urine Protein Negative mg/dL (NEG-TRACE) Urine Glucose (UA) Negative mg/dL (NEG) Urine Ketones (Stick) Negative mg/dL (NEG) Urine Blood Negative (NEG) Urine Nitrite Negative (NEG) Urine Bilirubin Negative (NEG) Urine Urobilinogen Dipstick 0.2 mg/dL (0.2 mg/dL) Urine Leukocyte Esterase Small (NEG) Urine RBC Rare /HPF (0-2) Urine WBC 5-10 /HPF (0-4) Urine Squamous Epithelial Cells Many /LPF Urine Bacteria Few /HPF (0-FEW) Urine Mucus Mod /LPF White Blood Count 7.6 x10^3/uL (4.0-11.0) Red Blood Count 4.43 x10^6/uL (3.50-5.40) Hemoglobin 13.7 g/dL (12.0-15.5) Hematocrit 40.2 % (36.0-47.0) Mean Corpuscular Volume 91 fL (79-100) Mean Corpuscular Hemoglobin 31 pg (25-35) Mean Corpuscular Hemoglobin Concent 34 g/dL (31-37) Red Cell Distribution Width 13.4 % (11.5-14.5) Platelet Count 231 x10^3/uL (140-400) Neutrophils (%) (Auto) 65 % (31-73) Lymphocytes (%) (Auto) 24 % (24-48) Monocytes (%) (Auto) 8 % (0-9) Eosinophils (%) (Auto) 2 % (0-3) Basophils (%) (Auto) 1 % (0-3) Neutrophils # (Auto) 4.9 x10^3/uL (1.8-7.7) Lymphocytes # (Auto) 1.8 x10^3/uL (1.0-4.8) Monocytes # (Auto) 0.6 x10^3/uL (0.0-1.1) Eosinophils # (Auto) 0.1 x10^3/uL (0.0-0.7) Basophils # (Auto) 0.0 x10^3/uL (0.0-0.2) Sodium Level 143 mmol/L (136-145) Potassium Level 4.7 mmol/L (3.5-5.1) Chloride Level 105 mmol/L (98-107) Carbon Dioxide Level 29 mmol/L (21-32) Anion Gap 9 (6-14) Blood Urea Nitrogen 14 mg/dL (7-20) Creatinine 1.0 mg/dL (0.6-1.0) Estimated GFR (Cockcroft-Gault) 56.0 BUN/Creatinine Ratio 14 (6-20) Glucose Level 96 mg/dL (70-99) Calcium Level 9.3 mg/dL (8.5-10.1) Total Bilirubin 0.7 mg/dL (0.2-1.0) Aspartate Amino Transferase (AST) 20 U/L (15-37) Alanine Aminotransferase (ALT) 19 U/L (14-59) Alkaline Phosphatase 62 U/L (46-116) Total Protein 8.1 g/dL (6.4-8.2) Albumin 3.9 g/dL (3.4-5.0) Albumin/Globulin Ratio 0.9 (1.0-1.7) L Lipase 177 U/L (73-393) Laboratory Tests 03/06/19 13:34 Laboratory Tests 03/06/19 13:34 EKG EKG [] Radiology/Procedures Radiology/Procedures PROCEDURE: CT ABD PELV W/ IV CONTRST ONLY EXAM: CT Abdomen and Pelvis with IV contrast CLINICAL HISTORY: Recurrent left lower quadrant pain. History of diverticulitis. COMPARISON: 12/13/2018 TECHNIQUE: Helical CT of the abdomen and pelvis was performed following the administration of intravenous contrast. Axial, coronal and sagittal reformatted images were generated. PQRS compliance statement - One or more of the following individualized dose reduction techniques were utilized for this study: 1. Automated exposure control 2. Adjustment of the mA and/or kV according to patient size 3. Use of iterative reconstruction technique FINDINGS: Lower chest: Linear opacities in the lingula and lower lobes likely scarring/atelectasis. Vague groundglass opacity in the medial right lower lobe. Abdomen and Pelvis: No focal liver lesion. Cholecystectomy clips are seen. No biliary dilatation. Pancreas is unremarkable. Calcified granuloma are seen within the spleen which is otherwise unremarkable. Adrenal glands are normal. Symmetric nephrograms. Subcentimeter hypodense renal lesions are too small to accurately characterize. Right extrarenal pelvis. No hydronephrosis or hydroureter. Bladder is unremarkable. Moderate colonic stool content is seen. Appendix is not convincingly seen although no associated skin right lower quadrant inflammatory changes are seen. Inflammatory changes are seen about the mid descending colon with associated colonic diverticula and fascial thickening, compared to 03/03/2019 is mildly progressed. No free intraperitoneal gas or pneumoperitoneum. No loculated fluid collection is seen. No abdominal or pelvic ascites. No abdominal or pelvic lymphadenopathy. Atherosclerotic calcifications of aorta are seen. Small fat-containing periumbilical hernia is seen. Bones: Degenerative changes of the symphysis pubis and spine. Mild S-shaped curvature of the thoracolumbar spine. Hip joint degenerative changes are also seen. IMPRESSION: Colonic diverticulitis within the mid descending colon, with the inflammatory changes mildly progressed compared to 02/19/2019. Following resolution of the acute process, colonoscopy is recommended to exclude underlying colonic abnormality or mass at the recently performed. Small fat-containing periumbilical hernia.[] Course & Med Decision Making Course & Med Decision Making Pertinent Labs and Imaging studies reviewed. (See chart for details) [] 2:45 PM:The patient's condition remains stable. I spoke with the hospitalist, who accepted the patient to the hospital for further evaluation and treatment. Dragon Disclaimer Dragon Disclaimer This electronic medical record was generated, in whole or in part, using a voice recognition dictation system. Departure Departure Impression: Primary Impression: Diverticulitis Disposition: ADMITTED INPATIENT Admitting Physician: REBEKA Condition: STABLE Referrals: YONI KNIGHT MD (PCP) ETELVINA LARSON MD Mar 06, 2019 13:47
[2019-03-06 13:48] LABS: BASO % 1 % (0-3); EOS # 0.1 x10^3/uL (0.0-0.7); EOS % 2 % (0-3); HEMATOCRIT 40.2 % (36.0-47.0); HEMOGLOBIN 13.7 g/dL (12.0-15.5); LYMPH # 1.8 x10^3/uL (1.0-4.8); LYMPH % 24 % (24-48); MEAN CORPUSCULAR HEMOGLOBIN 31 pg (25-35); MEAN CORPUSCULAR HGB CONC 34 g/dL (31-37); MEAN CORPUSCULAR VOLUME 91 fL (79-100); MONO # 0.6 x10^3/uL (0.0-1.1); MONO % 8 % (0-9); NEUT # 4.9 x10^3/uL (1.8-7.7); NEUT % 65 % (31-73); PLATELET COUNT 231 x10^3/uL (140-400); RED BLOOD COUNT 4.43 x10^6/uL (3.50-5.40); RED CELL DISTRIBUTION WIDTH 13.4 % (11.5-14.5); WHITE BLOOD COUNT 7.6 x10^3/uL (4.0-11.0)
[2019-03-06 13:48] LABS: BILIRUBIN,URINE NEGATIVE (NEG); CLARITY,URINE CLEAR; COLOR,URINE AMBER; NITRITE,URINE NEGATIVE (NEG); PH,URINE 5.5; PROTEIN,URINE NEGATIVE (NEG-TRACE); UROBILINOGEN,URINE 0.2 mg/dL (0.2 mg/dL)
[2019-03-06 14:02] LABS: CALCIUM 9.3 mg/dL (8.5-10.1); POTASSIUM 4.7 mmol/L (3.5-5.1)
[2019-03-06 14:02] LABS: BACTERIA,URINE FEW /HPF (0-FEW); RBC,URINE RARE /HPF (0-2); SQUAMOUS EPITHELIAL CELL,UR MANY /LPF
[2019-03-06 14:08] LABS: ALBUMIN 3.9 g/dL (3.4-5.0); ALBUMIN/GLOBULIN RATIO 0.9 (1.0-1.7); TOTAL BILIRUBIN 0.7 mg/dL (0.2-1.0); TOTAL PROTEIN 8.1 g/dL (6.4-8.2)
[2019-03-06] MEDS ORDERED: CONTRAST GIVEN. MC PRN (14:15)
[2019-03-06] MEDS ORDERED: IOHEXOL 300 MG/ML 100ML VIAL. IV ONE (14:15)
--- NOTE | 2019-03-06 14:42 | RAD ---
EXAM: CT Abdomen and Pelvis with IV contrast CLINICAL HISTORY: Recurrent left lower quadrant pain. History of diverticulitis. COMPARISON: 12/13/2018 TECHNIQUE: Helical CT of the abdomen and pelvis was performed following the administration of intravenous contrast. Axial, coronal and sagittal reformatted images were generated. PQRS compliance statement - One or more of the following individualized dose reduction techniques were utilized for this study: 1. Automated exposure control 2. Adjustment of the mA and/or kV according to patient size 3. Use of iterative reconstruction technique FINDINGS: Lower chest: Linear opacities in the lingula and lower lobes likely scarring/atelectasis. Vague groundglass opacity in the medial right lower lobe. Abdomen and Pelvis: No focal liver lesion. Cholecystectomy clips are seen. No biliary dilatation. Pancreas is unremarkable. Calcified granuloma are seen within the spleen which is otherwise unremarkable. Adrenal glands are normal. Symmetric nephrograms. Subcentimeter hypodense renal lesions are too small to accurately characterize. Right extrarenal pelvis. No hydronephrosis or hydroureter. Bladder is unremarkable. Moderate colonic stool content is seen. Appendix is not convincingly seen although no associated skin right lower quadrant inflammatory changes are seen. Inflammatory changes are seen about the mid descending colon with associated colonic diverticula and fascial thickening, compared to 03/03/2019 is mildly progressed. No free intraperitoneal gas or pneumoperitoneum. No loculated fluid collection is seen. No abdominal or pelvic ascites. No abdominal or pelvic lymphadenopathy. Atherosclerotic calcifications of aorta are seen. Small fat-containing periumbilical hernia is seen. Bones: Degenerative changes of the symphysis pubis and spine. Mild S-shaped curvature of the thoracolumbar spine. Hip joint degenerative changes are also seen. IMPRESSION: Colonic diverticulitis within the mid descending colon, with the inflammatory changes mildly progressed compared to 02/19/2019. Following resolution of the acute process, colonoscopy is recommended to exclude underlying colonic abnormality or mass at the recently performed. Small fat-containing periumbilical hernia. Electronically signed by: Sourav Ham MD (03/06/2019 2:39 PM) [id number]
[2019-03-06] MEDS ORDERED: PIP/TAZO PER PHARMACY MC PRN (15:15)
[2019-03-06] MEDS ORDERED: MORPHINE SULFATE 4 MG/ML VIAL. IV PRN (15:15)
[2019-03-06] MEDS ORDERED: ONDANSETRON PF 4 MG/2 ML VIAL. IV PRN (15:15)
[2019-03-06] MEDS: PIPERACILLIN/TAZOBACTAM 3.375 GM in IV NORMAL SALINE 50ML 50 ML IV SCH (15:37)
[2019-03-06] MEDS: HYDROmorphone 2 MG/ML VIAL IV PRN ×2 (18:01→23:21)
--- NOTE | 2019-03-06 18:30 | HP ---
ADMIT DATE: 03/06/2019 CHIEF COMPLAINT: Abdominal pain. 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 I know her well. She has been suffering from intermittent diverticulitis for the last few months. In fact, she had surgical resection of some of her bowel a few years ago. Once again, she presents with a recurrent episode of diverticulitis, rated at 7/10. She states it is worse with the food she has been eating including broccoli. Drinking clears does seem to help. She tried taking some [id number] meds, but that did not seem to help. I discussed the case with the ER physician. We are going to admit the patient and consult General Surgery as I suspect she is going to need another colon resection. PAST MEDICAL HISTORY: Previous colon resection, diverticulitis, hypertension, depression, obstructive sleep apnea, sick sinus syndrome, pacemaker, tonsillectomy, lap band with removal, and gastric sleeve. ALLERGIES: None. FAMILY HISTORY: Hypertension. SOCIAL HISTORY: She works as a nurse. She does not drink, smoke, or take drugs. MEDICATIONS: Reviewed, please refer to the MRAD. REVIEW OF SYSTEMS: GENERAL: No history of weight change, weakness or fevers. SKIN: No bruising, hair changes or rashes. EYES: No blurred, double or loss of vision. NOSE AND THROAT: No history of nosebleeds, hoarseness or sore throat. HEART: No history of palpitations, chest pain or shortness of breath on exertion. LUNGS: Denies cough, hemoptysis, wheezing or shortness of breath. GASTROINTESTINAL: She complains of abdominal pain. GENITOURINARY: No history of frequency, urgency, hesitancy or nocturia. NEUROLOGIC: Denies history of numbness, tingling, tremor or weakness. PSYCHIATRIC: No history of panic, anxiety or depression. ENDOCRINE: No history of heat or cold intolerance, polyuria or polydipsia. EXTREMITIES: Denies muscle weakness, joint pain, pain on walking or stiffness. PHYSICAL EXAMINATION: VITALS: Within normal limits and are stable. GENERAL: No apparent distress. Alert and oriented. HEENT: Head is normocephalic, atraumatic, pupils were equally round and reactive to light and accommodation. NECK: Supple, no JVD, no thyromegaly was noted. LUNGS: Clear to auscultation in all lung [place] without rhonchi or wheezing. HEART: RRR, S1, S2 present. Peripheral pulses intact, no obvious murmurs were noted. ABDOMEN: Soft, nontender. Positive bowel sounds no organomegaly, normal bowel sounds. EXTREMITIES: Without any cyanosis, clubbing, or edema. Pedal pulses intact, Homans sign is negative. NEUROLOGIC: Normal speech, normal tone. A and O x 3, moves all extremities, no obvious focal deficits. PSYCHIATRIC: Normal affect, normal mood. Stable. SKIN: No ulcerations or rashes, good skin turgor, no jaundice. VASCULAR: Good capillary refill, neurovascular bundle appears to be intact. LABORATORY DATA: Hematology is normal with a white count of 7.6. Electrolytes are normal. DIAGNOSTIC DATA: CT of the abdomen shows chronic diverticulitis within the mid descending colon with inflammatory changes that have mildly progressed compared to 02/19. There is also a recently formed small fat containing periumbilical hernia. ASSESSMENT AND PLAN: Chronic diverticulitis. The patient has been admitted. We will start IV antibiotics. Consult Gastroenterology, consult General Surgery. Home medications. Deep venous thrombosis prophylaxis. Full code. ULISSES KING DO DR: HALEY/gale JOB#: [id number] / [id number]
[2019-03-06 19:00] VITALS: BP 133/88
[2019-03-06 23:00] VITALS: BP 141/91
[2019-03-07] MEDS: PIPERACILLIN/TAZOBACTAM 3.375 GM in IV NORMAL SALINE 50ML 50 ML IV SCH ×4 (00:15→18:32)
[2019-03-07 03:00] VITALS: BP 142/81
[2019-03-07] MEDS ORDERED: IOHEXOL 300 MG/ML 100ML VIAL. ONE (03:47)
[2019-03-07 07:00] VITALS: BP 181/100
[2019-03-07] MEDS ORDERED: ONDANSETRON PF 4 MG/2 ML VIAL. IVP PRN (08:00)
[2019-03-07] MEDS: NICOTINE 14MG PATCH. TD SCH (08:14)
[2019-03-07] MEDS: PANTOPRAZOLE IV PUSH 40 MG VIAL. IVP SCH (08:35)
[2019-03-07] MEDS: HYDROmorphone 2 MG/ML VIAL IV PRN ×4 (08:36→23:14)
[2019-03-07] MEDS: IV NORMAL SALINE 1000ML BAG 1,000 ML IV SCH ×2 (08:36→22:27)
--- NOTE | 2019-03-07 10:04 | PDOC2 ---
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 H/o recurrent diverticulitis w/ past colon resection w/ Dr. Shipley. Here, diverticulitis on CTs in 10/2013, 07/2015, 12/2018, and 02/2019 (twice - worsening inflammation on yesterday's imaging). Mostly recently admitted earlier this morning - treated w/ IV atbx and discharged on PO. [place] well for a few days after finishing antibiotics, then lower abdominal pain recurred - worse this time. Thinks brought on by chicken soup w/ peppers, drinking coffee, and eating roughage. Did online research. EGD 10/2014 w/ reflux esophagitis and gastritis (biopsies neg for Joshi's and H. pylori). On omeprazole QD w/ good control. Colonoscopy 10/25/17: few small-mouthed diverticula in sigmoid colon and non-blee ding internal hemorrhoids. H/o constipation - takes probiotics and magnesium PRN. Stress, eating out, and eating more gluten seem to contribute. Has gained weight. S/p cholecystectomy for biliary dyskinesia (path w/ chronic cholecystitis). Hepatic steatosis noted on past imaging. Hep C Ab negative in 2018. No pancreas or PUD history. Takes Bentyl, no routine NSAIDs. Daughter is supposed to have a baby on Monday (here) and she's supposed to be involved. PMH: PMH: HTN, GALEN, hepatic steatosis, GERD, diverticulosis/itis, anxiety/depression cholecystectomy, pacemaker, tonsillectomy, colon resection, breast biopsy, lap band/removal, gastric sleeve, knee arthroscopy FH: Family History: Cancer (sister - colon), DM, Other (CREST, Parkinson's) Social History: Smoke: Quit ALCOHOL: social Drugs: None ROS: GEN: Denies fevers, chills, sweats HEENT: Denies blurred vision, sore throat CV: Denies chest pain RESP: Denies shortness of air, cough GI: Per HPI : Denies hematuria, dysuria ENDO: Denies weight changes NEURO: Denies confusion, dizziness MSK: Denies weakness, joint pain/swelling SKIN: Denies jaundice, pruritus Vitals: Vitals: Vital Signs Date Time Temp Pulse Resp B/P (MAP) Pulse Ox O2 Delivery O2 Flow Rate FiO2 03/07/19 09:06 Room Air 03/07/19 07:00 98.2 62 16 181/100 (127) 98 98.2 Labs: Labs: Laboratory Tests Test 03/06/19 13:15 03/06/19 13:34 Urine Collection Type Unknown Urine Color Nancy Urine Clarity Clear Urine pH 5.5 Urine Specific [place] 1.020 Urine Protein Negative mg/dL (NEG-TRACE) Urine Glucose (UA) Negative mg/dL (NEG) Urine Ketones (Stick) Negative mg/dL (NEG) Urine Blood Negative (NEG) Urine Nitrite Negative (NEG) Urine Bilirubin Negative (NEG) Urine Urobilinogen Dipstick 0.2 mg/dL (0.2 mg/dL) Urine Leukocyte Esterase Small (NEG) Urine RBC Rare /HPF (0-2) Urine WBC 5-10 /HPF (0-4) Urine Squamous Epithelial Cells Many /LPF Urine Bacteria Few /HPF (0-FEW) Urine Mucus Mod /LPF White Blood Count 7.6 x10^3/uL (4.0-11.0) Red Blood Count 4.43 x10^6/uL (3.50-5.40) Hemoglobin 13.7 g/dL (12.0-15.5) Hematocrit 40.2 % (36.0-47.0) Mean Corpuscular Volume 91 fL (79-100) Mean Corpuscular Hemoglobin 31 pg (25-35) Mean Corpuscular Hemoglobin Concent 34 g/dL (31-37) Red Cell Distribution Width 13.4 % (11.5-14.5) Platelet Count 231 x10^3/uL (140-400) Neutrophils (%) (Auto) 65 % (31-73) Lymphocytes (%) (Auto) 24 % (24-48) Monocytes (%) (Auto) 8 % (0-9) Eosinophils (%) (Auto) 2 % (0-3) Basophils (%) (Auto) 1 % (0-3) Neutrophils # (Auto) 4.9 x10^3/uL (1.8-7.7) Lymphocytes # (Auto) 1.8 x10^3/uL (1.0-4.8) Monocytes # (Auto) 0.6 x10^3/uL (0.0-1.1) Eosinophils # (Auto) 0.1 x10^3/uL (0.0-0.7) Basophils # (Auto) 0.0 x10^3/uL (0.0-0.2) Sodium Level 143 mmol/L (136-145) Potassium Level 4.7 mmol/L (3.5-5.1) Chloride Level 105 mmol/L (98-107) Carbon Dioxide Level 29 mmol/L (21-32) Anion Gap 9 (6-14) Blood Urea Nitrogen 14 mg/dL (7-20) Creatinine 1.0 mg/dL (0.6-1.0) Estimated GFR (Cockcroft-Gault) 56.0 BUN/Creatinine Ratio 14 (6-20) Glucose Level 96 mg/dL (70-99) Calcium Level 9.3 mg/dL (8.5-10.1) Total Bilirubin 0.7 mg/dL (0.2-1.0) Aspartate Amino Transf (AST/SGOT) 20 U/L (15-37) Alanine Aminotransferase (ALT/SGPT) 19 U/L (14-59) Alkaline Phosphatase 62 U/L (46-116) Total Protein 8.1 g/dL (6.4-8.2) Albumin 3.9 g/dL (3.4-5.0) Albumin/Globulin Ratio 0.9 (1.0-1.7) Lipase 177 U/L (73-393) Allergies: Coded Allergies: No Known Drug Allergies (Unverified , 10/25/17) Medications: Current Medications Medications (Trade) Dose Ordered Sig/Gregorio Route PRN Reason Start Time Stop Time Status Last Admin Dose Admin Sodium Chloride 1,000 ml @ 100 mls/hr Q10H IV 03/06/19 13:39 03/06/19 23:38 DC 03/06/19 13:48 Hydromorphone HCl (Dilaudid) 1 mg 1X ONCE IV 03/06/19 13:45 03/06/19 13:46 DC 03/06/19 13:52 Iohexol (Omnipaque 300 Mg/ml) 60 ml 1X ONCE IV 03/06/19 14:15 03/06/19 14:16 DC 03/06/19 14:20 Piperacillin Sod/ Tazobactam Sod 3.375 gm/Sodium Chloride 50 ml @ 100 mls/hr Q6HRS IV 03/06/19 16:00 03/07/19 06:00 Morphine Sulfate (Morphine Sulfate) 4 mg PRN Q2HR PRN IV PAIN 03/06/19 15:15 03/06/19 16:30 DC 03/06/19 15:17 Hydromorphone HCl (Dilaudid) 1 mg PRN Q2HRS PRN IV PAIN 03/06/19 16:30 03/07/19 08:36 Pantoprazole Sodium (PROTONIX VIAL for IV PUSH) 40 mg DAILYAC IVP 03/07/19 08:00 03/07/19 08:35 Sodium Chloride 1,000 ml @ 80 mls/hr [id number] IV 03/07/19 08:00 03/07/19 08:36 Imaging: Imaging: CT A/P w/ IV contrast FINDINGS: Lower chest: Linear opacities in the lingula and lower lobes likely scarring/atelectasis. Vague groundglass opacity in the medial right lower lobe. Abdomen and Pelvis: No focal liver lesion. Cholecystectomy clips are seen. No biliary dilatation. Pancreas is unremarkable. Calcified granuloma are seen within the spleen which is otherwise unremarkable. Adrenal glands are normal. Symmetric nephrograms. Subcentimeter hypodense renal lesions are too small to accurately characterize. Right extrarenal pelvis. No hydronephrosis or hydroureter. Bladder is unremarkable. Moderate colonic stool content is seen. Appendix is not conv incingly seen although no associated skin right lower quadrant inflammatory changes are seen. Inflammatory changes are seen about the mid descending colon with associated colonic diverticula and fascial thickening, compared to 03/03/2019 is mildly progressed. No free intraperitoneal gas or pneumoperitoneum. No loculated fluid collection is seen. No abdominal or pelvic ascites. No abdominal or pelvic lymphadenopathy. Atherosclerotic calcifications of aorta are seen. Small fat-containing periumbilical hernia is seen. Bones: Degenerative changes of the symphysis pubis and spine. Mild S-shaped curvature of the thoracolumbar spine. Hip joint degenerative changes are also seen. IMPRESSION: Colonic diverticulitis within the mid descending colon, with the inflammatory changes mildly progressed compared to 02/19/2019. Following resolution of the acute process, colonoscopy is recommended to exclude underlying colonic abnormality or mass at the recently performed. Small fat-containing periumbilical hernia. PE: GEN: NAD HEENT: Atraumatic, PERRL LUNGS: CTAB HEART: RRR ABD: quiet BS, significant tenderness - worse than last admission - suprapubic to LLQ to LUQ EXTREMITY: No edema SKIN: No rashes, no jaundice NEURO/PSYCH: A & O 3 A/P: A/P: Recurrent diverticulitis w/ h/o colon resection - second admission this month GERD - controlled w/ PPI S/p gastric sleeve CRC screen - UTD (2017) Intermittent constipation S/p cholecystectomy Hepatic steatosis HTN -- No labs today - can recheck. Surgery asked to see again as well. Continue IV antibiotics - will review w/ Dr. Majano. Continue NPO w/ ice chips for now. Agree w/ PPI (IV for now). Pain control and BP management per primary. TAYLER DE SANTIAGO Mar 07, 2019 10:04
[2019-03-07 10:44] LABS: HEMATOCRIT 36.9 % (36.0-47.0); HEMOGLOBIN 12.6 g/dL (12.0-15.5); RED BLOOD COUNT 4.06 x10^6/uL (3.50-5.40); RED CELL DISTRIBUTION WIDTH 13.2 % (11.5-14.5)
[2019-03-07 11:00] VITALS: BP 174/100
[2019-03-07 11:01] LABS: CALCIUM 8.5 mg/dL (8.5-10.1)
--- NOTE | 2019-03-07 11:09 | PDOC ---
PROGRESS NOTES Chief Complaint Chief Complaint Recurrent diverticulitis w/ h/o colon resection - second admission this month GERD - controlled w/ PPI S/p gastric sleeve CRC screen - UTD (2018) Intermittent constipation S/p cholecystectomy Hepatic steatosis HTN, accelerated History of Present Illness History of Present Illness BP high bec has been NPO BUt i get GI clearance can have sips meds STill abd pain, left sided, but pain med helping GS has yet to see PLAn: Start some NS PAin med COnt zosyn CLonidine prn and first dose now! (SBP 180s) clonidine PAtch if reclacitrant I have resumed home losartan 100 po qhs I might start norvasc 10 too now PPI, zofran etc Vitals Vitals Vital Signs Date Time Temp Pulse Resp B/P (MAP) Pulse Ox O2 Delivery O2 Flow Rate FiO2 03/07/19 09:06 Room Air 03/07/19 07:00 98.2 62 16 181/100 (127) 98 98.2 Physical Exam General: Alert, Oriented X3, Cooperative, No acute distress Heart: Regular rate, Normal S1, Normal S2, No murmurs Lungs: Clear Abdomen: Normal bowel sounds, Soft, Other (LLQ abd pain) Extremities: No clubbing, No cyanosis, No edema, Normal pulses Skin: No rashes, No breakdown, No significant lesion Labs LABS Laboratory Tests Test 03/06/19 13:15 03/06/19 13:34 03/07/19 10:30 Urine Collection Type Unknown Urine Color Nancy Urine Clarity Clear Urine pH 5.5 Urine Specific [place] 1.020 Urine Protein Negative mg/dL (NEG-TRACE) Urine Glucose (UA) Negative mg/dL (NEG) Urine Ketones (Stick) Negative mg/dL (NEG) Urine Blood Negative (NEG) Urine Nitrite Negative (NEG) Urine Bilirubin Negative (NEG) Urine Urobilinogen Dipstick 0.2 mg/dL (0.2 mg/dL) Urine Leukocyte Esterase Small (NEG) Urine RBC Rare /HPF (0-2) Urine WBC 5-10 /HPF (0-4) Urine Squamous Epithelial Cells Many /LPF Urine Bacteria Few /HPF (0-FEW) Urine Mucus Mod /LPF White Blood Count 7.6 x10^3/uL (4.0-11.0) 4.0 x10^3/uL (4.0-11.0) Red Blood Count 4.43 x10^6/uL (3.50-5.40) 4.06 x10^6/uL (3.50-5.40) Hemoglobin 13.7 g/dL (12.0-15.5) 12.6 g/dL (12.0-15.5) Hematocrit 40.2 % (36.0-47.0) 36.9 % (36.0-47.0) Mean Corpuscular Volume 91 fL (79-100) 91 fL (79-100) Mean Corpuscular Hemoglobin 31 pg (25-35) 31 pg (25-35) Mean Corpuscular Hemoglobin Concent 34 g/dL (31-37) 34 g/dL (31-37) Red Cell Distribution Width 13.4 % (11.5-14.5) 13.2 % (11.5-14.5) Platelet Count 231 x10^3/uL (140-400) 179 x10^3/uL (140-400) Neutrophils (%) (Auto) 65 % (31-73) Lymphocytes (%) (Auto) 24 % (24-48) Monocytes (%) (Auto) 8 % (0-9) Eosinophils (%) (Auto) 2 % (0-3) Basophils (%) (Auto) 1 % (0-3) Neutrophils # (Auto) 4.9 x10^3/uL (1.8-7.7) Lymphocytes # (Auto) 1.8 x10^3/uL (1.0-4.8) Monocytes # (Auto) 0.6 x10^3/uL (0.0-1.1) Eosinophils # (Auto) 0.1 x10^3/uL (0.0-0.7) Basophils # (Auto) 0.0 x10^3/uL (0.0-0.2) Sodium Level 143 mmol/L (136-145) 143 mmol/L (136-145) Potassium Level 4.7 mmol/L (3.5-5.1) 4.0 mmol/L (3.5-5.1) Chloride Level 105 mmol/L (98-107) 108 mmol/L (98-107) Carbon Dioxide Level 29 mmol/L (21-32) 30 mmol/L (21-32) Anion Gap 9 (6-14) 5 (6-14) Blood Urea Nitrogen 14 mg/dL (7-20) 10 mg/dL (7-20) Creatinine 1.0 mg/dL (0.6-1.0) 1.0 mg/dL (0.6-1.0) Estimated GFR (Cockcroft-Gault) 56.0 56.0 BUN/Creatinine Ratio 14 (6-20) Glucose Level 96 mg/dL (70-99) 96 mg/dL (70-99) Calcium Level 9.3 mg/dL (8.5-10.1) 8.5 mg/dL (8.5-10.1) Total Bilirubin 0.7 mg/dL (0.2-1.0) Aspartate Amino Transf (AST/SGOT) 20 U/L (15-37) Alanine Aminotransferase (ALT/SGPT) 19 U/L (14-59) Alkaline Phosphatase 62 U/L (46-116) Total Protein 8.1 g/dL (6.4-8.2) Albumin 3.9 g/dL (3.4-5.0) Albumin/Globulin Ratio 0.9 (1.0-1.7) Lipase 177 U/L (73-393) Review of Systems Review of Systems LLq abd pain, no nausea, no fevers, rest 14 pt neg Assessment and Plan Assessmemt and Plan Problems Medical Problems: (1) Diverticulitis Status: Acute Comment Review of Relevant I have reviewed the following items tish (where applicable) has been applied. Labs Laboratory Tests Test 03/06/19 13:15 03/06/19 13:34 03/07/19 10:30 Urine Collection Type Unknown Urine Color Nancy Urine Clarity Clear Urine pH 5.5 Urine Specific [place] 1.020 Urine Protein Negative mg/dL (NEG-TRACE) Urine Glucose (UA) Negative mg/dL (NEG) Urine Ketones (Stick) Negative mg/dL (NEG) Urine Blood Negative (NEG) Urine Nitrite Negative (NEG) Urine Bilirubin Negative (NEG) Urine Urobilinogen Dipstick 0.2 mg/dL (0.2 mg/dL) Urine Leukocyte Esterase Small (NEG) Urine RBC Rare /HPF (0-2) Urine WBC 5-10 /HPF (0-4) Urine Squamous Epithelial Cells Many /LPF Urine Bacteria Few /HPF (0-FEW) Urine Mucus Mod /LPF White Blood Count 7.6 x10^3/uL (4.0-11.0) 4.0 x10^3/uL (4.0-11.0) Red Blood Count 4.43 x10^6/uL (3.50-5.40) 4.06 x10^6/uL (3.50-5.40) Hemoglobin 13.7 g/dL (12.0-15.5) 12.6 g/dL (12.0-15.5) Hematocrit 40.2 % (36.0-47.0) 36.9 % (36.0-47.0) Mean Corpuscular Volume 91 fL (79-100) 91 fL (79-100) Mean Corpuscular Hemoglobin 31 pg (25-35) 31 pg (25-35) Mean Corpuscular Hemoglobin Concent 34 g/dL (31-37) 34 g/dL (31-37) Red Cell Distribution Width 13.4 % (11.5-14.5) 13.2 % (11.5-14.5) Platelet Count 231 x10^3/uL (140-400) 179 x10^3/uL (140-400) Neutrophils (%) (Auto) 65 % (31-73) Lymphocytes (%) (Auto) 24 % (24-48) Monocytes (%) (Auto) 8 % (0-9) Eosinophils (%) (Auto) 2 % (0-3) Basophils (%) (Auto) 1 % (0-3) Neutrophils # (Auto) 4.9 x10^3/uL (1.8-7.7) Lymphocytes # (Auto) 1.8 x10^3/uL (1.0-4.8) Monocytes # (Auto) 0.6 x10^3/uL (0.0-1.1) Eosinophils # (Auto) 0.1 x10^3/uL (0.0-0.7) Basophils # (Auto) 0.0 x10^3/uL (0.0-0.2) Sodium Level 143 mmol/L (136-145) 143 mmol/L (136-145) Potassium Level 4.7 mmol/L (3.5-5.1) 4.0 mmol/L (3.5-5.1) Chloride Level 105 mmol/L (98-107) 108 mmol/L (98-107) Carbon Dioxide Level 29 mmol/L (21-32) 30 mmol/L (21-32) Anion Gap 9 (6-14) 5 (6-14) Blood Urea Nitrogen 14 mg/dL (7-20) 10 mg/dL (7-20) Creatinine 1.0 mg/dL (0.6-1.0) 1.0 mg/dL (0.6-1.0) Estimated GFR (Cockcroft-Gault) 56.0 56.0 BUN/Creatinine Ratio 14 (6-20) Glucose Level 96 mg/dL (70-99) 96 mg/dL (70-99) Calcium Level 9.3 mg/dL (8.5-10.1) 8.5 mg/dL (8.5-10.1) Total Bilirubin 0.7 mg/dL (0.2-1.0) Aspartate Amino Transf (AST/SGOT) 20 U/L (15-37) Alanine Aminotransferase (ALT/SGPT) 19 U/L (14-59) Alkaline Phosphatase 62 U/L (46-116) Total Protein 8.1 g/dL (6.4-8.2) Albumin 3.9 g/dL (3.4-5.0) Albumin/Globulin Ratio 0.9 (1.0-1.7) Lipase 177 U/L (73-393) Laboratory Tests Test 03/06/19 13:15 03/06/19 13:34 03/07/19 10:30 Urine Collection Type Unknown Urine Color Nancy Urine Clarity Clear Urine pH 5.5 Urine Specific [place] 1.020 Urine Protein Negative mg/dL (NEG-TRACE) Urine Glucose (UA) Negative mg/dL (NEG) Urine Ketones (Stick) Negative mg/dL (NEG) Urine Blood Negative (NEG) Urine Nitrite Negative (NEG) Urine Bilirubin Negative (NEG) Urine Urobilinogen Dipstick 0.2 mg/dL (0.2 mg/dL) Urine Leukocyte Esterase Small (NEG) Urine RBC Rare /HPF (0-2) Urine WBC 5-10 /HPF (0-4) Urine Squamous Epithelial Cells Many /LPF Urine Bacteria Few /HPF (0-FEW) Urine Mucus Mod /LPF White Blood Count 7.6 x10^3/uL (4.0-11.0) 4.0 x10^3/uL (4.0-11.0) Red Blood Count 4.43 x10^6/uL (3.50-5.40) 4.06 x10^6/uL (3.50-5.40) Hemoglobin 13.7 g/dL (12.0-15.5) 12.6 g/dL (12.0-15.5) Hematocrit 40.2 % (36.0-47.0) 36.9 % (36.0-47.0) Mean Corpuscular Volume 91 fL (79-100) 91 fL (79-100) Mean Corpuscular Hemoglobin 31 pg (25-35) 31 pg (25-35) Mean Corpuscular Hemoglobin Concent 34 g/dL (31-37) 34 g/dL (31-37) Red Cell Distribution Width 13.4 % (11.5-14.5) 13.2 % (11.5-14.5) Platelet Count 231 x10^3/uL (140-400) 179 x10^3/uL (140-400) Neutrophils (%) (Auto) 65 % (31-73) Lymphocytes (%) (Auto) 24 % (24-48) Monocytes (%) (Auto) 8 % (0-9) Eosinophils (%) (Auto) 2 % (0-3) Basophils (%) (Auto) 1 % (0-3) Neutrophils # (Auto) 4.9 x10^3/uL (1.8-7.7) Lymphocytes # (Auto) 1.8 x10^3/uL (1.0-4.8) Monocytes # (Auto) 0.6 x10^3/uL (0.0-1.1) Eosinophils # (Auto) 0.1 x10^3/uL (0.0-0.7) Basophils # (Auto) 0.0 x10^3/uL (0.0-0.2) Sodium Level 143 mmol/L (136-145) 143 mmol/L (136-145) Potassium Level 4.7 mmol/L (3.5-5.1) 4.0 mmol/L (3.5-5.1) Chloride Level 105 mmol/L (98-107) 108 mmol/L (98-107) Carbon Dioxide Level 29 mmol/L (21-32) 30 mmol/L (21-32) Anion Gap 9 (6-14) 5 (6-14) Blood Urea Nitrogen 14 mg/dL (7-20) 10 mg/dL (7-20) Creatinine 1.0 mg/dL (0.6-1.0) 1.0 mg/dL (0.6-1.0) Estimated GFR (Cockcroft-Gault) 56.0 56.0 BUN/Creatinine Ratio 14 (6-20) Glucose Level 96 mg/dL (70-99) 96 mg/dL (70-99) Calcium Level 9.3 mg/dL (8.5-10.1) 8.5 mg/dL (8.5-10.1) Total Bilirubin 0.7 mg/dL (0.2-1.0) Aspartate Amino Transf (AST/SGOT) 20 U/L (15-37) Alanine Aminotransferase (ALT/SGPT) 19 U/L (14-59) Alkaline Phosphatase 62 U/L (46-116) Total Protein 8.1 g/dL (6.4-8.2) Albumin 3.9 g/dL (3.4-5.0) Albumin/Globulin Ratio 0.9 (1.0-1.7) Lipase 177 U/L (73-393) Medications Current Medications Sodium Chloride 1,000 ml @ 100 mls/hr Q10H IV Last administered on 03/06/19at 13:48; Start 03/06/19 at 13:39; Stop 03/06/19 at 23:38; Status DC Hydromorphone HCl (Dilaudid) 1 mg 1X ONCE IV Last administered on 03/06/19at 13:52; Start 03/06/19 at 13:45; Stop 03/06/19 at 13:46; Status DC Iohexol (Omnipaque 300 Mg/ml) 60 ml 1X ONCE IV Last administered on 03/06/19at 14:20; Start 03/06/19 at 14:15; Stop 03/06/19 at 14:16; Status DC Info (CONTRAST GIVEN -- Rx MONITORING) 1 each PRN DAILY PRN MC SEE COMMENTS; Start 03/06/19 at 14:15; Stop 03/08/19 at 14:14 Piperacillin Sod/ Tazobactam Sod (Zosyn Per Pharmacy) 1 each PRN DAILY PRN MC SEE COMMENTS; Start 03/06/19 at 15:15 Piperacillin Sod/ Tazobactam Sod 3.375 gm/Sodium Chloride 50 ml @ 100 mls/hr Q6HRS IV Last administered on 03/07/19at 06:00; Start 03/06/19 at 16:00 Ondansetron HCl (Zofran) 4 mg PRN Q8HRS PRN IV NAUSEA/VOMITING; Start 03/06/19 at 15:15; Stop 03/07/19 at 15:14 Morphine Sulfate (Morphine Sulfate) 4 mg PRN Q2HR PRN IV PAIN Last administered on 03/06/19at 15:17; Start 03/06/19 at 15:15; Stop 03/06/19 at 16:30; Status DC Hydromorphone HCl (Dilaudid) 1 mg PRN Q2HRS PRN IV PAIN Last administered on 03/07/19at 08:36; Start 03/06/19 at 16:30 Iohexol (Omnipaque 300 Mg/ml) 100 ml STK-MED ONCE .ROUTE ; Start 03/07/19 at 03:47; Stop 03/07/19 at 03:48; Status DC Pantoprazole Sodium (PROTONIX VIAL for IV PUSH) 40 mg DAILYAC IVP Last administered on 03/07/19at 08:35; Start 03/07/19 at 08:00 Ondansetron HCl (Zofran) 4 mg PRN Q6HRS PRN IVP NAUSEA/VOMITING; Start 03/07/19 at 08:00 Sodium Chloride 1,000 ml @ 80 mls/hr [id number] IV Last administered on 03/07/19at 08:36; Start 03/07/19 at 08:00 Nicotine (Nicoderm Cq 14mg) 1 patch DAILY TD ; Start 03/07/19 at 09:00 Alprazolam (Xanax) 1 mg TID PRN PRN PO ANXIETY / AGITATION; Start 03/07/19 at 11:15; Status UNV Furosemide (Lasix) 50 mg Q3DAYS PRN PO SEE COMMENTS; Start 03/07/19 at 11:15; Status UNV Acetaminophen/ Hydrocodone Bitart (Lortab 5/325) 1 tab PRN Q6HRS PRN PO PAIN; Start 03/07/19 at 11:15; Status UNV Non-Formulary Medication (Escitalopram Oxalate (Lexapro)) 2 tab DAILY PO ; Start 03/08/19 at 09:00; Status UNV Non-Formulary Medication (Loratadine (Claritin)) 1 tab PRN DAILY PRN PO ALLERGIES; Start 03/07/19 at 11:15; Status UNV Non-Formulary Medication (Losartan Potassium ) 100 mg HS PO ; Start 03/07/19 at 21:00; Status UNV Non-Formulary Medication (Multivit With Calcium,Iron,Min (Women's Daily Multivitamin)) 1 each DAILY PO ; Start 03/08/19 at 09:00; Status UNV Non-Formulary Medication (Ondansetron Hcl (Zofran)) 1 tab Q6HRS PO ; Start 03/07/19 at 12:00; Status UNV Clonidine HCl (Catapres) 0.1 mg PRN Q1HR PRN PO HYPERTENSION; Start 03/07/19 at 11:15; Status UNV Active Scripts Active Aragon 5-325 Tablet (Acetaminophen/Hydrocodone Bitart) 1 Each Tablet 1-2 Tab PO Q6HRS PRN Zofran (Ondansetron Hcl) 4 Mg Tablet 1 Tab PO Q6HRS Flagyl (Metronidazole) 500 Mg Tablet 500 Mg PO TID Levaquin (Levofloxacin) 500 Mg Tablet 1 Tab PO DAILY Aragon 5-325 Tablet (Acetaminophen/Hydrocodone Bitart) 1 Each Tablet 1 Tab PO PRN Q6HRS PRN Robaxin (Methocarbamol) 500 Mg Tablet 500 Mg PO QID Reported NICODERM CQ 14mg (Nicotine) 1 Each Patch.td24 1 Patch TD DAILY Prilosec Otc (Omeprazole Magnesium) 20 Mg Tablet.dr 20 Mg PO BID Claritin (Loratadine) 10 Mg Tablet 1 Tab PO PRN DAILY PRN Calcium 600 + D Tablet (Calcium Carbonate/Vitamin D3) 1 Each Tablet 1 Each PO DAILY Women's Daily Multivitamin (Multivit With Calcium,Iron,Min) 1 Each Tablet 1 Each PO DAILY Lexapro (Escitalopram Oxalate) 10 Mg Tablet 2 Tab PO DAILY Xanax (Alprazolam) 1 Mg Tablet 1 Mg PO TID PRN PRN Losartan Potassium 100 Mg Tablet 100 Mg PO HS Lasix (Furosemide) 40 Mg Tablet 50 Mg PO Q3DAYS PRN Vitals/I & O Vital Sign - Last 24 Hours 03/06/19 03/06/19 03/06/19 03/06/19 13:35 13:52 14:00 14:30 Pulse 60 60 60 Resp 17 16 17 B/P (MAP) 190/103 (132) 157/89 (111) 154/84 (107) Pulse Ox 98 96 94 O2 Delivery Room Air Room Air Room Air 03/06/19 03/06/19 03/06/19 03/06/19 15:17 15:30 16:00 18:01 Pulse 58 60 Resp 20 B/P (MAP) 157/82 (107) 155/84 (107) Pulse Ox 94 94 O2 Delivery Room Air Room Air Room Air Room Air 03/06/19 03/06/19 03/06/19 03/06/19 18:31 19:00 20:00 23:00 Temp 98.4 98.2 98.4 98.2 Pulse 60 60 Resp 16 16 16 B/P (MAP) 133/88 (103) 141/91 (108) Pulse Ox 93 96 O2 Delivery Room Air Room Air 03/07/19 03/07/19 03/07/19 03/07/19 03:00 07:00 08:36 09:06 Temp 97.7 98.2 97.7 98.2 Pulse 59 62 Resp 16 16 B/P (MAP) 142/81 (101) 181/100 (127) Pulse Ox 95 98 O2 Delivery Room Air Room Air Room Air Intake and Output 03/06/19 03/06/19 03/07/19 15:00 23:00 07:00 Intake Total 1050 ml Balance 1050 ml RODRIGO MORROW MD Mar 07, 2019 11:09
[2019-03-07] MEDS ORDERED: FUROSEMIDE 40 MG TABLET. PO PRN (11:15)
[2019-03-07] MEDS ORDERED: cloNIDine HCL 0.1 MG TABLET PO PRN (11:15)
--- NOTE | 2019-03-07 11:33 | PDOC2 ---
XIN MCMAHON CLERICAL ORDER FILLER 03/07/19 1133: CONSULT Date of Consult Date of Consult DATE: 03/07/19 TIME: 11:28 Reason for Consult Reason for Consult: recurrent diverticulitis Referring Physician Referring Physician: ER Identification/Chief Complaint Chief Complaint abdominal pain Source Source: Chart review, Patient History of Present Illness Reason for Visit: Patient know from previous admissions for diverticulitis. Previous resection with Dr Shipley, recently admitted this month with diverticulitis. Now returns with similar findings Past Medical History Cardiovascular: HTN, Syncope, Other Pulmonary: Other GI: Diverticulosis Psych: Depression Past Surgical History Past Surgical History: Pacemaker, Tonsillectomy, Colon Resection, Other Family History Family History: Coronary Artery Disease Social History Quit ALCOHOL: social Drugs: None Current Problem List Problem List Problems Medical Problems: (1) Diverticulitis Status: Acute Current Medications Current Medications Current Medications Sodium Chloride 1,000 ml @ 100 mls/hr Q10H IV Last administered on 03/06/19at 13:48; Start 03/06/19 at 13:39; Stop 03/06/19 at 23:38; Status DC Hydromorphone HCl (Dilaudid) 1 mg 1X ONCE IV Last administered on 03/06/19at 13:52; Start 03/06/19 at 13:45; Stop 03/06/19 at 13:46; Status DC Iohexol (Omnipaque 300 Mg/ml) 60 ml 1X ONCE IV Last administered on 03/06/19at 14:20; Start 03/06/19 at 14:15; Stop 03/06/19 at 14:16; Status DC Info (CONTRAST GIVEN -- Rx MONITORING) 1 each PRN DAILY PRN MC SEE COMMENTS; Start 03/06/19 at 14:15; Stop 03/08/19 at 14:14 Piperacillin Sod/ Tazobactam Sod (Zosyn Per Pharmacy) 1 each PRN DAILY PRN MC SEE COMMENTS; Start 03/06/19 at 15:15 Piperacillin Sod/ Tazobactam Sod 3.375 gm/Sodium Chloride 50 ml @ 100 mls/hr Q6HRS IV Last administered on 03/07/19at 06:00; Start 03/06/19 at 16:00 Ondansetron HCl (Zofran) 4 mg PRN Q8HRS PRN IV NAUSEA/VOMITING; Start 03/06/19 at 15:15; Stop 03/07/19 at 15:14 Morphine Sulfate (Morphine Sulfate) 4 mg PRN Q2HR PRN IV PAIN Last administered on 03/06/19at 15:17; Start 03/06/19 at 15:15; Stop 03/06/19 at 16:30; Status DC Hydromorphone HCl (Dilaudid) 1 mg PRN Q2HRS PRN IV PAIN Last administered on 03/07/19at 08:36; Start 03/06/19 at 16:30 Iohexol (Omnipaque 300 Mg/ml) 100 ml STK-MED ONCE .ROUTE ; Start 03/07/19 at 03:47; Stop 03/07/19 at 03:48; Status DC Pantoprazole Sodium (PROTONIX VIAL for IV PUSH) 40 mg DAILYAC IVP Last administered on 03/07/19at 08:35; Start 03/07/19 at 08:00 Ondansetron HCl (Zofran) 4 mg PRN Q6HRS PRN IVP NAUSEA/VOMITING; Start 03/07/19 at 08:00 Sodium Chloride 1,000 ml @ 80 mls/hr [id number] IV Last administered on 03/07/19at 08:36; Start 03/07/19 at 08:00 Nicotine (Nicoderm Cq 14mg) 1 patch DAILY TD ; Start 03/07/19 at 09:00 Alprazolam (Xanax) 1 mg TID PRN PRN PO ANXIETY / AGITATION; Start 03/07/19 at 11:15 Furosemide (Lasix) 50 mg Q3DAYS PRN PO SEE COMMENTS; Start 03/07/19 at 11:15; Stop 03/07/19 at 11:06; Status DC Acetaminophen/ Hydrocodone Bitart (Lortab 5/325) 1 tab PRN Q6HRS PRN PO PAIN; Start 03/07/19 at 11:15 Non-Formulary Medication (Escitalopram Oxalate (Lexapro)) 2 tab DAILY PO ; Start 03/08/19 at 09:00; Status UNV Cetirizine HCl (ZyrTEC) 10 mg PRN DAILY PRN PO ALLERGIES; Start 03/08/19 at 09:00 Losartan Potassium (Cozaar) 100 mg QHS PO ; Start 03/07/19 at 21:00 Multivitamins (Thera M Plus) 1 tab DAILY PO ; Start 03/08/19 at 09:00 Ondansetron HCl (Zofran Odt) 4 mg Q6HRS PO ; Start 03/07/19 at 12:00 Clonidine HCl (Catapres) 0.1 mg PRN Q1HR PRN PO HYPERTENSION; Start 03/07/19 at 11:15 Clonidine HCl (Catapres) 0.2 mg 1X ONCE PO ; Start 03/07/19 at 12:00; Stop 03/07/19 at 12:01 Active Scripts Active [place] 5-325 Tablet (Acetaminophen/Hydrocodone Bitart) 1 Each Tablet 1-2 Tab PO Q6HRS PRN Zofran (Ondansetron Hcl) 4 Mg Tablet 1 Tab PO Q6HRS Flagyl (Metronidazole) 500 Mg Tablet 500 Mg PO TID Levaquin (Levofloxacin) 500 Mg Tablet 1 Tab PO DAILY [place] 5-325 Tablet (Acetaminophen/Hydrocodone Bitart) 1 Each Tablet 1 Tab PO PRN Q6HRS PRN Robaxin (Methocarbamol) 500 Mg Tablet 500 Mg PO QID Reported NICODERM CQ 14mg (Nicotine) 1 Each Patch.td24 1 Patch TD DAILY Prilosec Otc (Omeprazole Magnesium) 20 Mg Tablet.dr 20 Mg PO BID Claritin (Loratadine) 10 Mg Tablet 1 Tab PO PRN DAILY PRN Calcium 600 + D Tablet (Calcium Carbonate/Vitamin D3) 1 Each Tablet 1 Each PO DAILY Women's Daily Multivitamin (Multivit With Calcium,Iron,Min) 1 Each Tablet 1 Each PO DAILY Lexapro (Escitalopram Oxalate) 10 Mg Tablet 2 Tab PO DAILY Xanax (Alprazolam) 1 Mg Tablet 1 Mg PO TID PRN PRN Losartan Potassium 100 Mg Tablet 100 Mg PO HS Lasix (Furosemide) 40 Mg Tablet 50 Mg PO Q3DAYS PRN Allergies Allergies: Coded Allergies: No Known Drug Allergies (Unverified , 10/25/17) ROS General: No: Chills, Other (fevers) PSYCHOLOGICAL ROS: No: Anxiety, Depression Eyes: No Blurry vision, No Double vision HEENT: No: Heacaches, Sore Throat Hematological and Lymphatic: No: Bleeding Problems, Blood Clots Respiratory: No: Cough, Shortness of breath Cardiovascular: No Chest Pain, No Palpitations Gastrointestinal: Yes Other (see hpi) Genitourinary: No Dysuria, No Hematuria Musculoskeletal: No Joint Pain, No Muscle Pain Neurological: No Confusion, No Impaired Coord/balance Skin: No Pruritus, No Rash Physical Exam General: Alert, Oriented X3, Cooperative, No acute distress HEENT: PERRLA, Mucous membr. moist/pink Lungs: Clear to auscultation, Normal air movement Heart: Regular rate, Normal S1, Normal S2, No murmurs Abdomen: Soft, Other (moderate TTP LLQ) Extremities: No clubbing, No cyanosis Skin: No rashes, No breakdown Neuro: Normal gait, Normal speech Psych/Mental Status: Mental status NL, Mood NL MUSCULOSKELETAL: No deformity, No swelling Vitals VITALS Vital Signs Date Time Temp Pulse Resp B/P (MAP) Pulse Ox O2 Delivery O2 Flow Rate FiO2 03/07/19 09:06 Room Air 03/07/19 07:00 98.2 62 16 181/100 (127) 98 98.2 Labs Labs Laboratory Tests Test 03/06/19 13:15 03/06/19 13:34 03/07/19 10:30 Urine Collection Type Unknown Urine Color Nancy Urine Clarity Clear Urine pH 5.5 Urine Specific Page 1.020 Urine Protein Negative mg/dL (NEG-TRACE) Urine Glucose (UA) Negative mg/dL (NEG) Urine Ketones (Stick) Negative mg/dL (NEG) Urine Blood Negative (NEG) Urine Nitrite Negative (NEG) Urine Bilirubin Negative (NEG) Urine Urobilinogen Dipstick 0.2 mg/dL (0.2 mg/dL) Urine Leukocyte Esterase Small (NEG) Urine RBC Rare /HPF (0-2) Urine WBC 5-10 /HPF (0-4) Urine Squamous Epithelial Cells Many /LPF Urine Bacteria Few /HPF (0-FEW) Urine Mucus Mod /LPF White Blood Count 7.6 x10^3/uL (4.0-11.0) 4.0 x10^3/uL (4.0-11.0) Red Blood Count 4.43 x10^6/uL (3.50-5.40) 4.06 x10^6/uL (3.50-5.40) Hemoglobin 13.7 g/dL (12.0-15.5) 12.6 g/dL (12.0-15.5) Hematocrit 40.2 % (36.0-47.0) 36.9 % (36.0-47.0) Mean Corpuscular Volume 91 fL (79-100) 91 fL (79-100) Mean Corpuscular Hemoglobin 31 pg (25-35) 31 pg (25-35) Mean Corpuscular Hemoglobin Concent 34 g/dL (31-37) 34 g/dL (31-37) Red Cell Distribution Width 13.4 % (11.5-14.5) 13.2 % (11.5-14.5) Platelet Count 231 x10^3/uL (140-400) 179 x10^3/uL (140-400) Neutrophils (%) (Auto) 65 % (31-73) Lymphocytes (%) (Auto) 24 % (24-48) Monocytes (%) (Auto) 8 % (0-9) Eosinophils (%) (Auto) 2 % (0-3) Basophils (%) (Auto) 1 % (0-3) Neutrophils # (Auto) 4.9 x10^3/uL (1.8-7.7) Lymphocytes # (Auto) 1.8 x10^3/uL (1.0-4.8) Monocytes # (Auto) 0.6 x10^3/uL (0.0-1.1) Eosinophils # (Auto) 0.1 x10^3/uL (0.0-0.7) Basophils # (Auto) 0.0 x10^3/uL (0.0-0.2) Sodium Level 143 mmol/L (136-145) 143 mmol/L (136-145) Potassium Level 4.7 mmol/L (3.5-5.1) 4.0 mmol/L (3.5-5.1) Chloride Level 105 mmol/L (98-107) 108 mmol/L (98-107) Carbon Dioxide Level 29 mmol/L (21-32) 30 mmol/L (21-32) Anion Gap 9 (6-14) 5 (6-14) Blood Urea Nitrogen 14 mg/dL (7-20) 10 mg/dL (7-20) Creatinine 1.0 mg/dL (0.6-1.0) 1.0 mg/dL (0.6-1.0) Estimated GFR (Cockcroft-Gault) 56.0 56.0 BUN/Creatinine Ratio 14 (6-20) Glucose Level 96 mg/dL (70-99) 96 mg/dL (70-99) Calcium Level 9.3 mg/dL (8.5-10.1) 8.5 mg/dL (8.5-10.1) Total Bilirubin 0.7 mg/dL (0.2-1.0) Aspartate Amino Transf (AST/SGOT) 20 U/L (15-37) Alanine Aminotransferase (ALT/SGPT) 19 U/L (14-59) Alkaline Phosphatase 62 U/L (46-116) Total Protein 8.1 g/dL (6.4-8.2) Albumin 3.9 g/dL (3.4-5.0) Albumin/Globulin Ratio 0.9 (1.0-1.7) Lipase 177 U/L (73-393) Laboratory Tests Test 03/06/19 13:15 03/06/19 13:34 03/07/19 10:30 Urine Collection Type Unknown Urine Color Nancy Urine Clarity Clear Urine pH 5.5 Urine Specific Page 1.020 Urine Protein Negative mg/dL (NEG-TRACE) Urine Glucose (UA) Negative mg/dL (NEG) Urine Ketones (Stick) Negative mg/dL (NEG) Urine Blood Negative (NEG) Urine Nitrite Negative (NEG) Urine Bilirubin Negative (NEG) Urine Urobilinogen Dipstick 0.2 mg/dL (0.2 mg/dL) Urine Leukocyte Esterase Small (NEG) Urine RBC Rare /HPF (0-2) Urine WBC 5-10 /HPF (0-4) Urine Squamous Epithelial Cells Many /LPF Urine Bacteria Few /HPF (0-FEW) Urine Mucus Mod /LPF White Blood Count 7.6 x10^3/uL (4.0-11.0) 4.0 x10^3/uL (4.0-11.0) Red Blood Count 4.43 x10^6/uL (3.50-5.40) 4.06 x10^6/uL (3.50-5.40) Hemoglobin 13.7 g/dL (12.0-15.5) 12.6 g/dL (12.0-15.5) Hematocrit 40.2 % (36.0-47.0) 36.9 % (36.0-47.0) Mean Corpuscular Volume 91 fL (79-100) 91 fL (79-100) Mean Corpuscular Hemoglobin 31 pg (25-35) 31 pg (25-35) Mean Corpuscular Hemoglobin Concent 34 g/dL (31-37) 34 g/dL (31-37) Red Cell Distribution Width 13.4 % (11.5-14.5) 13.2 % (11.5-14.5) Platelet Count 231 x10^3/uL (140-400) 179 x10^3/uL (140-400) Neutrophils (%) (Auto) 65 % (31-73) Lymphocytes (%) (Auto) 24 % (24-48) Monocytes (%) (Auto) 8 % (0-9) Eosinophils (%) (Auto) 2 % (0-3) Basophils (%) (Auto) 1 % (0-3) Neutrophils # (Auto) 4.9 x10^3/uL (1.8-7.7) Lymphocytes # (Auto) 1.8 x10^3/uL (1.0-4.8) Monocytes # (Auto) 0.6 x10^3/uL (0.0-1.1) Eosinophils # (Auto) 0.1 x10^3/uL (0.0-0.7) Basophils # (Auto) 0.0 x10^3/uL (0.0-0.2) Sodium Level 143 mmol/L (136-145) 143 mmol/L (136-145) Potassium Level 4.7 mmol/L (3.5-5.1) 4.0 mmol/L (3.5-5.1) Chloride Level 105 mmol/L (98-107) 108 mmol/L (98-107) Carbon Dioxide Level 29 mmol/L (21-32) 30 mmol/L (21-32) Anion Gap 9 (6-14) 5 (6-14) Blood Urea Nitrogen 14 mg/dL (7-20) 10 mg/dL (7-20) Creatinine 1.0 mg/dL (0.6-1.0) 1.0 mg/dL (0.6-1.0) Estimated GFR (Cockcroft-Gault) 56.0 56.0 BUN/Creatinine Ratio 14 (6-20) Glucose Level 96 mg/dL (70-99) 96 mg/dL (70-99) Calcium Level 9.3 mg/dL (8.5-10.1) 8.5 mg/dL (8.5-10.1) Total Bilirubin 0.7 mg/dL (0.2-1.0) Aspartate Amino Transf (AST/SGOT) 20 U/L (15-37) Alanine Aminotransferase (ALT/SGPT) 19 U/L (14-59) Alkaline Phosphatase 62 U/L (46-116) Total Protein 8.1 g/dL (6.4-8.2) Albumin 3.9 g/dL (3.4-5.0) Albumin/Globulin Ratio 0.9 (1.0-1.7) Lipase 177 U/L (73-393) Assessment/Plan Assessment/Plan recurrent diverticulitis continue abx, bowel rest would hope to manage acute episode without surgery, plan elective resection will review with ANGELA Hennessy MD 03/07/19 2753: CONSULT Assessment/Plan Assessment/Plan Pt seen and examined. Agree with Ms. Mcmahon's note Pt with c/o LLQ pain, currently controlled mild TTP LLQ pt interested in continued supportive care and wished to avoid surgical resection. Cont cont plan. Thanks for consult! XIN MCMAHON APRN Mar 07, 2019 11:33 ANGELA SHIPLEY MD Mar 07, 2019 14:25
[2019-03-07] MEDS ORDERED: cloNIDine HCL 0.1 MG TABLET PO ONE (12:00)
--- NOTE | 2019-03-07 12:23 | NUR ---
SW following for discharge planning. Discussed with RN, pt is from home, currently NPO. RN advised no SW needs at this time. SW will continue to follow.
[2019-03-07] MEDS: ONDANSETRON ODT 4 MG TAB.RAPDIS. PO SCH ×2 (13:25→18:00)
[2019-03-07 15:02] VITALS: BP 139/88
[2019-03-07 19:00] VITALS: BP 145/82
[2019-03-07] MEDS: LOSARTAN POTASSIUM 50 MG TABLET. PO SCH (22:01)
[2019-03-07 22:20] VITALS: BP 155/93
[2019-03-07] MEDS: ALPRAZolam 1 MG TABLET PO PRN (23:17)
[2019-03-08] MEDS: PIPERACILLIN/TAZOBACTAM 3.375 GM in IV NORMAL SALINE 50ML 50 ML IV SCH ×4 (01:16→19:41)
[2019-03-08 03:00] VITALS: BP 150/99
[2019-03-08] MEDS: HYDROmorphone 2 MG/ML VIAL IV PRN ×4 (04:54→21:29)
[2019-03-08] MEDS: HYDROcodone/APAP 5/325MG 1 TAB TABLET PO PRN ×2 (05:18→12:31)
[2019-03-08] MEDS: ONDANSETRON ODT 4 MG TAB.RAPDIS. PO SCH ×4 (06:00→18:00)
[2019-03-08 07:00] VITALS: BP 140/88
[2019-03-08] MEDS: PANTOPRAZOLE IV PUSH 40 MG VIAL. IVP SCH (08:00)
[2019-03-08] MEDS: MULTIVITAMIN with MINERAL TABLET. PO SCH (08:08)
[2019-03-08] MEDS: CITALOPRAM 20 MG TABLET. PO SCH (08:08)
[2019-03-08] MEDS: NICOTINE 14MG PATCH. TD SCH (08:08)
[2019-03-08] MEDS ORDERED: CETIRIZINE HCL 10 MG TABLET. PO PRN (09:00)
[2019-03-08] MEDS ORDERED: ESCITALOPRAM OXALATE PO SCH (09:00)
--- NOTE | 2019-03-08 09:02 | PDOC ---
Subjective: Subjective: Abd pain is better but had severe (bilateral) leg pain - Lortab + Dilaudid helped. Objective: Objective: Surgery note says she wishes to avoid resection. Vital Signs: Vital Signs Date Time Temp Pulse Resp B/P (MAP) Pulse Ox O2 Delivery O2 Flow Rate FiO2 03/08/19 07:00 97.7 60 18 140/88 (105) 95 Room Air 97.7 Labs: Laboratory Tests Test 03/07/19 10:30 White Blood Count 4.0 x10^3/uL Red Blood Count 4.06 x10^6/uL Hemoglobin 12.6 g/dL Hematocrit 36.9 % Mean Corpuscular Volume 91 fL Mean Corpuscular Hemoglobin 31 pg Mean Corpuscular Hemoglobin Concent 34 g/dL Red Cell Distribution Width 13.2 % Platelet Count 179 x10^3/uL Sodium Level 143 mmol/L Potassium Level 4.0 mmol/L Chloride Level 108 mmol/L Carbon Dioxide Level 30 mmol/L Anion Gap 5 Blood Urea Nitrogen 10 mg/dL Creatinine 1.0 mg/dL Estimated GFR (Cockcroft-Gault) 56.0 Glucose Level 96 mg/dL Calcium Level 8.5 mg/dL URINE CULTURE RES 1 Final Comment Mixed urogenital yelena PE: GEN: NAD LUNGS: CTAB HEART: RRR ABD: NABS, S/ND, much less tender today NEURO/PSYCH: A & O 3 A/P: Recurrent diverticulitis - second admission this month -- Continue atbx. Try clears? TAYLER DE SANTIAGO Mar 08, 2019 09:02
[2019-03-08] MEDS ORDERED: amLODIPine BESYLATE 5 MG TABLET PO ONE (09:15)
--- NOTE | 2019-03-08 09:39 | PDOC ---
XIN COTA INORGANIC CHEMIST 03/08/19 0939: SURGICAL PROGRESS NOTE Subjective pain in abdomen, some improvement having pain/muscle aches to bilat thighs Vital Signs Vital Signs Date Time Temp Pulse Resp B/P (MAP) Pulse Ox O2 Delivery O2 Flow Rate FiO2 03/08/19 07:00 97.7 60 18 140/88 (105) 95 Room Air 97.7 I&O Intake and Output 03/08/19 06:59 Intake Total 1050 ml Balance 1050 ml Intake IV Total 1050 ml # Voids 3 General: Alert, Oriented X3, Cooperative, No acute distress Abdomen: Soft, Other (ttp lower abdomen ) Labs Laboratory Tests Test 03/06/19 13:15 03/06/19 13:34 03/07/19 10:30 Urine Collection Type Unknown Urine Color Nancy Urine Clarity Clear Urine pH 5.5 Urine Specific [place] 1.020 Urine Protein Negative mg/dL (NEG-TRACE) Urine Glucose (UA) Negative mg/dL (NEG) Urine Ketones (Stick) Negative mg/dL (NEG) Urine Blood Negative (NEG) Urine Nitrite Negative (NEG) Urine Bilirubin Negative (NEG) Urine Urobilinogen Dipstick 0.2 mg/dL (0.2 mg/dL) Urine Leukocyte Esterase Small (NEG) Urine RBC Rare /HPF (0-2) Urine WBC 5-10 /HPF (0-4) Urine Squamous Epithelial Cells Many /LPF Urine Bacteria Few /HPF (0-FEW) Urine Mucus Mod /LPF White Blood Count 7.6 x10^3/uL (4.0-11.0) 4.0 x10^3/uL (4.0-11.0) Red Blood Count 4.43 x10^6/uL (3.50-5.40) 4.06 x10^6/uL (3.50-5.40) Hemoglobin 13.7 g/dL (12.0-15.5) 12.6 g/dL (12.0-15.5) Hematocrit 40.2 % (36.0-47.0) 36.9 % (36.0-47.0) Mean Corpuscular Volume 91 fL (79-100) 91 fL (79-100) Mean Corpuscular Hemoglobin 31 pg (25-35) 31 pg (25-35) Mean Corpuscular Hemoglobin Concent 34 g/dL (31-37) 34 g/dL (31-37) Red Cell Distribution Width 13.4 % (11.5-14.5) 13.2 % (11.5-14.5) Platelet Count 231 x10^3/uL (140-400) 179 x10^3/uL (140-400) Neutrophils (%) (Auto) 65 % (31-73) Lymphocytes (%) (Auto) 24 % (24-48) Monocytes (%) (Auto) 8 % (0-9) Eosinophils (%) (Auto) 2 % (0-3) Basophils (%) (Auto) 1 % (0-3) Neutrophils # (Auto) 4.9 x10^3/uL (1.8-7.7) Lymphocytes # (Auto) 1.8 x10^3/uL (1.0-4.8) Monocytes # (Auto) 0.6 x10^3/uL (0.0-1.1) Eosinophils # (Auto) 0.1 x10^3/uL (0.0-0.7) Basophils # (Auto) 0.0 x10^3/uL (0.0-0.2) Sodium Level 143 mmol/L (136-145) 143 mmol/L (136-145) Potassium Level 4.7 mmol/L (3.5-5.1) 4.0 mmol/L (3.5-5.1) Chloride Level 105 mmol/L (98-107) 108 mmol/L (98-107) Carbon Dioxide Level 29 mmol/L (21-32) 30 mmol/L (21-32) Anion Gap 9 (6-14) 5 (6-14) Blood Urea Nitrogen 14 mg/dL (7-20) 10 mg/dL (7-20) Creatinine 1.0 mg/dL (0.6-1.0) 1.0 mg/dL (0.6-1.0) Estimated GFR (Cockcroft-Gault) 56.0 56.0 BUN/Creatinine Ratio 14 (6-20) Glucose Level 96 mg/dL (70-99) 96 mg/dL (70-99) Calcium Level 9.3 mg/dL (8.5-10.1) 8.5 mg/dL (8.5-10.1) Total Bilirubin 0.7 mg/dL (0.2-1.0) Aspartate Amino Transf (AST/SGOT) 20 U/L (15-37) Alanine Aminotransferase (ALT/SGPT) 19 U/L (14-59) Alkaline Phosphatase 62 U/L (46-116) Total Protein 8.1 g/dL (6.4-8.2) Albumin 3.9 g/dL (3.4-5.0) Albumin/Globulin Ratio 0.9 (1.0-1.7) Lipase 177 U/L (73-393) Laboratory Tests Test 03/07/19 10:30 White Blood Count 4.0 x10^3/uL (4.0-11.0) Red Blood Count 4.06 x10^6/uL (3.50-5.40) Hemoglobin 12.6 g/dL (12.0-15.5) Hematocrit 36.9 % (36.0-47.0) Mean Corpuscular Volume 91 fL (79-100) Mean Corpuscular Hemoglobin 31 pg (25-35) Mean Corpuscular Hemoglobin Concent 34 g/dL (31-37) Red Cell Distribution Width 13.2 % (11.5-14.5) Platelet Count 179 x10^3/uL (140-400) Sodium Level 143 mmol/L (136-145) Potassium Level 4.0 mmol/L (3.5-5.1) Chloride Level 108 mmol/L (98-107) Carbon Dioxide Level 30 mmol/L (21-32) Anion Gap 5 (6-14) Blood Urea Nitrogen 10 mg/dL (7-20) Creatinine 1.0 mg/dL (0.6-1.0) Estimated GFR (Cockcroft-Gault) 56.0 Glucose Level 96 mg/dL (70-99) Calcium Level 8.5 mg/dL (8.5-10.1) Problem List Problems Medical Problems: (1) Diverticulitis Status: Acute Assessment/Plan continue bowel rest, iv abx ANGELA PULIDO MD 03/08/19 1347: SURGICAL PROGRESS NOTE Subjective Pt seen and examined. Agree with Ms. Cota's note Pt reports bilateral thigh pain, but abd improved no n/v abd soft, ND, NTTP will try clears XIN COTA INORGANIC CHEMIST Mar 08, 2019 09:39 ANGELA PULIDO MD Mar 08, 2019 13:47
[2019-03-08 11:00] VITALS: BP 174/102
[2019-03-08] MEDS ORDERED: DICYCLOMINE HCL 10 MG CAPSULE PO ONE (11:45)
--- NOTE | 2019-03-08 11:45 | PDOC ---
PROGRESS NOTES Chief Complaint Chief Complaint Recurrent diverticulitis w/ h/o colon resection - second admission this month GERD - controlled w/ PPI S/p gastric sleeve CRC screen - UTD (2018) Intermittent constipation S/p cholecystectomy Hepatic steatosis HTN, accelerated History of Present Illness History of Present Illness GS recs bowel rest SO that's what we are doing SOme leg pains today - lortab plus dilaudid helped She has not amb ulated yet I told her she can OKayed for ice chips and meds BP better 140s- I verified home meds the second time, now she is on atenolol qam and bentyl at home' PLAN: NPO, Keep IVF BEntyl and atenolol ok OKayed for sips with meds by GI Add pT ot so she would ambulate Vitals Vitals Vital Signs Date Time Temp Pulse Resp B/P (MAP) Pulse Ox O2 Delivery O2 Flow Rate FiO2 03/08/19 10:51 60 140/88 03/08/19 07:00 97.7 18 95 Room Air 97.7 Physical Exam General: Alert, Oriented X3, Cooperative, No acute distress Heart: Regular rate, Normal S1, Normal S2, No murmurs Lungs: Clear Abdomen: Soft, Other (ttp lower abdomen ) Extremities: No clubbing, No cyanosis Skin: No rashes, No breakdown Review of Systems Review of Systems leg pains, abd pain, no emesis, the rest 14 pt neg Assessment and Plan Assessmemt and Plan Problems Medical Problems: (1) Diverticulitis Status: Acute Comment Review of Relevant I have reviewed the following items tish (where applicable) has been applied. Labs Laboratory Tests Test 03/06/19 13:15 03/06/19 13:34 03/07/19 10:30 Urine Collection Type Unknown Urine Color Nancy Urine Clarity Clear Urine pH 5.5 Urine Specific [place] 1.020 Urine Protein Negative mg/dL (NEG-TRACE) Urine Glucose (UA) Negative mg/dL (NEG) Urine Ketones (Stick) Negative mg/dL (NEG) Urine Blood Negative (NEG) Urine Nitrite Negative (NEG) Urine Bilirubin Negative (NEG) Urine Urobilinogen Dipstick 0.2 mg/dL (0.2 mg/dL) Urine Leukocyte Esterase Small (NEG) Urine RBC Rare /HPF (0-2) Urine WBC 5-10 /HPF (0-4) Urine Squamous Epithelial Cells Many /LPF Urine Bacteria Few /HPF (0-FEW) Urine Mucus Mod /LPF White Blood Count 7.6 x10^3/uL (4.0-11.0) 4.0 x10^3/uL (4.0-11.0) Red Blood Count 4.43 x10^6/uL (3.50-5.40) 4.06 x10^6/uL (3.50-5.40) Hemoglobin 13.7 g/dL (12.0-15.5) 12.6 g/dL (12.0-15.5) Hematocrit 40.2 % (36.0-47.0) 36.9 % (36.0-47.0) Mean Corpuscular Volume 91 fL (79-100) 91 fL (79-100) Mean Corpuscular Hemoglobin 31 pg (25-35) 31 pg (25-35) Mean Corpuscular Hemoglobin Concent 34 g/dL (31-37) 34 g/dL (31-37) Red Cell Distribution Width 13.4 % (11.5-14.5) 13.2 % (11.5-14.5) Platelet Count 231 x10^3/uL (140-400) 179 x10^3/uL (140-400) Neutrophils (%) (Auto) 65 % (31-73) Lymphocytes (%) (Auto) 24 % (24-48) Monocytes (%) (Auto) 8 % (0-9) Eosinophils (%) (Auto) 2 % (0-3) Basophils (%) (Auto) 1 % (0-3) Neutrophils # (Auto) 4.9 x10^3/uL (1.8-7.7) Lymphocytes # (Auto) 1.8 x10^3/uL (1.0-4.8) Monocytes # (Auto) 0.6 x10^3/uL (0.0-1.1) Eosinophils # (Auto) 0.1 x10^3/uL (0.0-0.7) Basophils # (Auto) 0.0 x10^3/uL (0.0-0.2) Sodium Level 143 mmol/L (136-145) 143 mmol/L (136-145) Potassium Level 4.7 mmol/L (3.5-5.1) 4.0 mmol/L (3.5-5.1) Chloride Level 105 mmol/L (98-107) 108 mmol/L (98-107) Carbon Dioxide Level 29 mmol/L (21-32) 30 mmol/L (21-32) Anion Gap 9 (6-14) 5 (6-14) Blood Urea Nitrogen 14 mg/dL (7-20) 10 mg/dL (7-20) Creatinine 1.0 mg/dL (0.6-1.0) 1.0 mg/dL (0.6-1.0) Estimated GFR (Cockcroft-Gault) 56.0 56.0 BUN/Creatinine Ratio 14 (6-20) Glucose Level 96 mg/dL (70-99) 96 mg/dL (70-99) Calcium Level 9.3 mg/dL (8.5-10.1) 8.5 mg/dL (8.5-10.1) Total Bilirubin 0.7 mg/dL (0.2-1.0) Aspartate Amino Transf (AST/SGOT) 20 U/L (15-37) Alanine Aminotransferase (ALT/SGPT) 19 U/L (14-59) Alkaline Phosphatase 62 U/L (46-116) Total Protein 8.1 g/dL (6.4-8.2) Albumin 3.9 g/dL (3.4-5.0) Albumin/Globulin Ratio 0.9 (1.0-1.7) Lipase 177 U/L (73-393) Microbiology 03/06/19 Urine Culture - Final, Complete 03/06/19 Urine Culture Result 1 ([place]) - Final, Complete Medications Current Medications Sodium Chloride 1,000 ml @ 100 mls/hr Q10H IV Last administered on 03/06/19at 13:48; Start 03/06/19 at 13:39; Stop 03/06/19 at 23:38; Status DC Hydromorphone HCl (Dilaudid) 1 mg 1X ONCE IV Last administered on 03/06/19at 13:52; Start 03/06/19 at 13:45; Stop 03/06/19 at 13:46; Status DC Iohexol (Omnipaque 300 Mg/ml) 60 ml 1X ONCE IV Last administered on 03/06/19at 14:20; Start 03/06/19 at 14:15; Stop 03/06/19 at 14:16; Status DC Info (CONTRAST GIVEN -- Rx MONITORING) 1 each PRN DAILY PRN MC SEE COMMENTS; Start 03/06/19 at 14:15; Stop 03/08/19 at 14:14 Piperacillin Sod/ Tazobactam Sod (Zosyn Per Pharmacy) 1 each PRN DAILY PRN MC SEE COMMENTS; Start 03/06/19 at 15:15 Piperacillin Sod/ Tazobactam Sod 3.375 gm/Sodium Chloride 50 ml @ 100 mls/hr Q6HRS IV Last administered on 03/08/19at 06:12; Start 03/06/19 at 16:00 Ondansetron HCl (Zofran) 4 mg PRN Q8HRS PRN IV NAUSEA/VOMITING; Start 03/06/19 at 15:15; Stop 03/07/19 at 15:14; Status DC Morphine Sulfate (Morphine Sulfate) 4 mg PRN Q2HR PRN IV PAIN Last administered on 03/06/19at 15:17; Start 03/06/19 at 15:15; Stop 03/06/19 at 16:30; Status DC Hydromorphone HCl (Dilaudid) 1 mg PRN Q2HRS PRN IV PAIN Last administered on 03/08/19at 10:59; Start 03/06/19 at 16:30 Iohexol (Omnipaque 300 Mg/ml) 100 ml STK-MED ONCE .ROUTE ; Start 03/07/19 at 03:47; Stop 03/07/19 at 03:48; Status DC Pantoprazole Sodium (PROTONIX VIAL for IV PUSH) 40 mg DAILYAC IVP Last adminis tered on 03/08/19at 08:00; Start 03/07/19 at 08:00 Ondansetron HCl (Zofran) 4 mg PRN Q6HRS PRN IVP NAUSEA/VOMITING; Start at 08:00 Sodium Chloride 1,000 ml @ 80 mls/hr [id number] IV Last administered on 03/07/19at 22:27; Start 03/07/19 at 08:00 Nicotine (Nicoderm Cq 14mg) 1 patch DAILY TD ; Start 03/07/19 at 09:00 Alprazolam (Xanax) 1 mg TID PRN PRN PO ANXIETY / AGITATION Last administered on 03/07/19at 23:17; Start 03/07/19 at 11:15 Furosemide (Lasix) 50 mg Q3DAYS PRN PO SEE COMMENTS; Start 03/07/19 at 11:15; Stop 03/07/19 at 11:06; Status DC Acetaminophen/ Hydrocodone Bitart (Lortab 5/325) 1 tab PRN Q6HRS PRN PO PAIN Last administered on 03/08/19at 05:18; Start 03/07/19 at 11:15 Non-Formulary Medication (Escitalopram Oxalate (Lexapro)) 2 tab DAILY PO ; Start 03/08/19 at 09:00; Stop 03/07/19 at 11:29; Status DC Cetirizine HCl (ZyrTEC) 10 mg PRN DAILY PRN PO ALLERGIES; Start 03/08/19 at 09:00 Losartan Potassium (Cozaar) 100 mg QHS PO Last administered on 03/07/19at 22:01; Start 03/07/19 at 21:00 Multivitamins (Thera M Plus) 1 tab DAILY PO Last administered on 03/08/19at 08:08; Start 03/08/19 at 09:00 Ondansetron HCl (Zofran Odt) 4 mg Q6HRS PO Last administered on 03/07/19at 13:25; Start 03/07/19 at 12:00 Clonidine HCl (Catapres) 0.1 mg PRN Q1HR PRN PO HYPERTENSION; Start 03/07/19 at 11:15 Clonidine HCl (Catapres) 0.2 mg 1X ONCE PO Last administered on 03/07/19at 13:26; Start 03/07/19 at 12:00; Stop 03/07/19 at 12:01; Status DC Citalopram Hydrobromide (CeleXA) 40 mg DAILY PO Last administered on 03/08/19at 08:08; Start 03/08/19 at 09:00 Amlodipine Besylate (Norvasc) 5 mg 1X ONCE PO Last administered on 03/08/19at 10:51; Start 03/08/19 at 09:15; Stop 03/08/19 at 09:20; Status DC Amlodipine Besylate (Norvasc) 5 mg DAILY PO ; Start 03/09/19 at 09:00 Active Scripts Active [place] 5-325 Tablet (Acetaminophen/Hydrocodone Bitart) 1 Each Tablet 1-2 Tab PO Q6HRS PRN Zofran (Ondansetron Hcl) 4 Mg Tablet 1 Tab PO Q6HRS Flagyl (Metronidazole) 500 Mg Tablet 500 Mg PO TID Levaquin (Levofloxacin) 500 Mg Tablet 1 Tab PO DAILY [place] 5-325 Tablet (Acetaminophen/Hydrocodone Bitart) 1 Each Tablet 1 Tab PO PRN Q6HRS PRN Robaxin (Methocarbamol) 500 Mg Tablet 500 Mg PO QID Reported NICODERM CQ 14mg (Nicotine) 1 Each Patch.td24 1 Patch TD DAILY Prilosec Otc (Omeprazole Magnesium) 20 Mg Tablet.dr 20 Mg PO BID Claritin (Loratadine) 10 Mg Tablet 1 Tab PO PRN DAILY PRN Calcium 600 + D Tablet (Calcium Carbonate/Vitamin D3) 1 Each Tablet 1 Each PO DAILY Women's Daily Multivitamin (Multivit With Calcium,Iron,Min) 1 Each Tablet 1 Each PO DAILY Lexapro (Escitalopram Oxalate) 10 Mg Tablet 2 Tab PO DAILY Xanax (Alprazolam) 1 Mg Tablet 1 Mg PO TID PRN PRN Losartan Potassium 100 Mg Tablet 100 Mg PO HS Lasix (Furosemide) 40 Mg Tablet 50 Mg PO Q3DAYS PRN Vitals/I & O Vital Sign - Last 24 Hours 03/07/19 03/07/19 03/07/19 03/07/19 13:26 13:31 14:01 15:02 Temp 98.3 98.3 Pulse 60 60 Resp 16 B/P (MAP) 174/100 139/88 (105) Pulse Ox 97 O2 Delivery Room Air Room Air Room Air 03/07/19 03/07/19 03/07/19 03/07/19 18:35 19:00 20:00 22:01 Temp 97.8 97.8 Pulse 60 60 Resp 17 B/P (MAP) 145/82 (103) 155/93 Pulse Ox 97 94 O2 Delivery Room Air Room Air Room Air 03/07/19 03/08/19 03/08/19 03/08/19 22:20 03:00 07:00 10:51 Temp 97.9 98.0 97.7 97.9 98.0 97.7 Pulse 60 60 60 60 Resp 16 16 18 B/P (MAP) 155/93 (113) 150/99 (116) 140/88 (105) 140/88 Pulse Ox 97 93 95 O2 Delivery Room Air Room Air Room Air Intake and Output 03/07/19 03/07/19 03/08/19 15:00 23:00 07:00 Intake Total 1000 ml 50 ml Balance 1000 ml 50 ml RODRIGO MORROW MD Mar 08, 2019 11:45
[2019-03-08] MEDS: ATENOLOL 25 MG TABLET. PO SCH (12:19)
[2019-03-08] MEDS: IV NORMAL SALINE 1000ML BAG 1,000 ML IV SCH (12:20)
--- NOTE | 2019-03-08 12:41 | NUR ---
SW following for discharge planning. Discussed with RN, pt is from home. RN advised no SW needs at this time. Pt diet advancing today. SW will continue to follow for any discharge planning needs.
[2019-03-08 15:00] VITALS: BP 166/96
[2019-03-08 19:00] VITALS: BP 158/98
[2019-03-08] MEDS: LOSARTAN POTASSIUM 50 MG TABLET. PO SCH (21:29)
[2019-03-08] MEDS: DICYCLOMINE HCL 10 MG CAPSULE PO SCH (21:29)
[2019-03-08] MEDS: ALPRAZolam 1 MG TABLET PO PRN (21:29)
[2019-03-08 23:00] VITALS: BP 144/81
[2019-03-09] MEDS: PIPERACILLIN/TAZOBACTAM 3.375 GM in IV NORMAL SALINE 50ML 50 ML IV SCH ×3 (00:23→12:00)
[2019-03-09 03:00] VITALS: BP 177/90
[2019-03-09] MEDS: IV NORMAL SALINE 1000ML BAG 1,000 ML IV SCH ×2 (04:20→10:00)
[2019-03-09] MEDS: HYDROmorphone 2 MG/ML VIAL IV PRN (04:20)
[2019-03-09] MEDS: ONDANSETRON ODT 4 MG TAB.RAPDIS. PO SCH ×3 (06:00→12:00)
[2019-03-09 07:59] VITALS: BP 183/89
[2019-03-09] MEDS: NICOTINE 14MG PATCH. TD SCH (09:00)
[2019-03-09] MEDS ORDERED: amLODIPine BESYLATE 5 MG TABLET PO SCH (09:00)
[2019-03-09] MEDS: PANTOPRAZOLE IV PUSH 40 MG VIAL. IVP SCH (09:16)
[2019-03-09] MEDS: DICYCLOMINE HCL 10 MG CAPSULE PO SCH ×2 (09:16→13:43)
[2019-03-09] MEDS: CITALOPRAM 20 MG TABLET. PO SCH (09:16)
[2019-03-09] MEDS: MULTIVITAMIN with MINERAL TABLET. PO SCH (09:16)
[2019-03-09 09:17] VITALS: BP 183/89
[2019-03-09] MEDS: ATENOLOL 25 MG TABLET. PO SCH (09:17)
[2019-03-09] MEDS: HYDROcodone/APAP 5/325MG 1 TAB TABLET PO PRN (09:27)
--- NOTE | 2019-03-09 11:16 | PDOC ---
[employer] PROGRESS NOTE Chief Complaint Chief Complaint Recurrent diverticulitis w/ h/o colon resection - second admission this month GERD - controlled w/ PPI S/p gastric sleeve CRC screen - UTD (2017) Intermittent constipation S/p cholecystectomy Hepatic steatosis HTN, accelerated History of Present Illness History of Present Illness 03/09/2019 Pt was Seen and examined. Reports that she is feeling better and has received approximately 12 doses of Zosyn upon admission. Reports she is ready for discharge and would like to pursue out patient treatment and elective colectomy at a later date. 03/08/2019 GS recs bowel rest SO that's what we are doing SOme leg pains today - lortab plus dilaudid helped She has not amb ulated yet I told her she can OKayed for ice chips and meds BP better 140s- I verified home meds the second time, now she is on atenolol qam and bentyl at home' PLAN: NPO, Keep IVF BEntyl and atenolol ok OKayed for sips with meds by GI Add pT ot so she would ambulate Vitals/I&O Vitals/I&O: Vital Signs Date Time Temp Pulse Resp B/P (MAP) Pulse Ox O2 Delivery O2 Flow Rate FiO2 03/09/19 09:27 Room Air 03/09/19 09:17 59 183/89 03/09/19 07:59 97.9 16 97 97.9 I & O 03/08/19 03/08/19 03/09/19 15:00 23:00 07:00 Intake Total 1050 ml 1050 ml Balance 1050 ml 1050 ml Physical Exam General: Alert, Oriented X3, Cooperative, No acute distress Heart: Regular rate, Normal S1, Normal S2, No murmurs Lungs: Clear Abdomen: Soft, Other (ttp lower abdomen ) Extremities: No clubbing, No cyanosis Skin: No rashes, No breakdown Review of Systems Review of Systems: Denies CP Denies SOB Admits to recurrent diarrhea and constipation Assessment and Plan Assessmemt and Plan Problems Medical Problems: (1) Diverticulitis Status: Acute Recurrent diverticulitis w/ h/o colon resection - second admission this month GERD - controlled w/ PPI S/p gastric sleeve CRC screen - UTD (2017) Intermittent constipation S/p cholecystectomy Hepatic steatosis HTN, accelerated Plan: 1) Plan to D/C patient today 2) wrote patient prescriptions for Flagyl 500mg, levofloxacin 500mg, Bentyl 10mg, and [place] 5/325 3) Completed and signed patient's FLMA paperwork 4) Advised patient return to hospital if symptoms worsen on discharged 5) Encouraged patient to eat as tolerated 6) Encouraged patient to pursue outpatient colectomy 7) Full code 8) DVT prophylaxis 9) PT/OT Comment Review of Relevant I have reviewed the following items tish (where applicable) has been applied. Medications: Current Medications Medications (Trade) Dose Ordered Sig/Gregorio Route PRN Reason Start Time Stop Time Status Last Admin Dose Admin Dicyclomine HCl (Bentyl) 10 mg 1X ONCE PO 03/08/19 11:45 03/08/19 11:46 DC 03/08/19 12:16 Dicyclomine HCl (Bentyl) 10 mg TID PO 03/08/19 21:00 03/09/19 09:16 Atenolol (Tenormin) 25 mg DAILY PO 03/08/19 12:00 03/09/19 09:17 ULISSES KING III DO Mar 09, 2019 11:16
--- NOTE | 2019-03-09 11:46 | PDOC ---
SURGICAL PROGRESS NOTE Subjective Pt reports pain somewhat improved, kaity clears, no n/V Vital Signs Vital Signs Date Time Temp Pulse Resp B/P (MAP) Pulse Ox O2 Delivery O2 Flow Rate FiO2 03/09/19 10:27 Room Air 03/09/19 09:17 59 183/89 03/09/19 07:59 97.9 16 97 97.9 I&O Intake and Output 03/09/19 07:00 Intake Total 2100 ml Balance 2100 ml Intake Oral 0 ml IV Total 2100 ml # Voids 2 General: Alert, Oriented X3, Cooperative, No acute distress Abdomen: Soft, Other (mild TTP LLQ) Problem List Problems Medical Problems: (1) Diverticulitis Status: Acute Assessment/Plan diverticulitis ADAT and work towards d/c ANGELA PULIDO MD Mar 09, 2019 11:46
--- NOTE | 2019-03-09 14:40 | NUR ---
Discharge Note: SAMUEL CHERY [address] Discharge instructions and discharge home medications reviewed with Patient and a copy given. All questions have been answered and understanding verbalized. The following instructions and handouts were given: Patient given education regarding new medications. Discontinued lines and drains: IV removed per protocol. Patient discharged home.
--- NOTE | 2019-03-12 13:44 | DS ---
DATE OF DISCHARGE: 03/09/2019 ADMISSION DIAGNOSIS: Recurrent diverticulitis. DISCHARGE DIAGNOSIS: Resolving diverticulitis. CONSULTS: GI and General Surgery. PROCEDURES: None. 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 Basically, she has had chronic diverticulitis for some time, it has been off and on, waxing and waning. We keep trying to treat it with outpatient oral antibiotics and she has been admitted a couple times as well over the past few months. Once again, she presented with an acute flare of her diverticulitis. We gave her IV Flagyl and Levaquin. We consulted General Surgery and GI. We considered more procedures, but she wants to hold off for now. She had a baby granddaughter that is going to be delivered in a couple of days. We got her stable, discharged to home with some Lortab, Flagyl and Levaquin p.o. and plan to have her follow up closely with Dr. Shipley for possible resection of the affected diverticular site. DISPOSITION: Home. ACTIVITY: As tolerated. DIET: Low sodium. MEDICATIONS: Please see MRAD. TOTAL TIME: 32 minutes. SUBHASHL Suze KING DO DR: HALEY/gale JOB#: [id number] / [id number]
== END 2019-03-09 14:00 | disposition home or self-care (01) | DRG 392 ==
LOC: ER 13:11 → 5 SOUTH 15:20
PROVIDERS: ADMIT Internal Medicine; ATTEND Internal Medicine
DX: K57.32 Diverticulitis of large intestine without perforation or abscess without bleeding (principal); F32.9 Major depressive disorder, single episode, unspecified; F41.9 Anxiety disorder, unspecified; G47.33 Obstructive sleep apnea (adult) (pediatric); I10 Essential (primary) hypertension; K21.9 Gastro-esophageal reflux disease without esophagitis; K42.9 Umbilical hernia without obstruction or gangrene; K59.00 Constipation, unspecified; Z80.9 Family history of malignant neoplasm, unspecified; Z82.0 Family history of epilepsy and other diseases of the nervous system; Z82.49 Family history of ischemic heart disease and other diseases of the circulatory system; Z90.49 Acquired absence of other specified parts of digestive tract; Z98.84 Bariatric surgery status; Z83.3 Family history of diabetes mellitus; Z79.899 Other long term (current) drug therapy; K76.0 Fatty (change of) liver, not elsewhere classified
CPT/HCPCS: 36415; 74177; 80048; 80053; 81001; 83690; 85025; 85027; 87086; 96360; 96361; C9113; J1170; J2270; J2543; J7030; Q0162; Q9967; 97110; 97530; 99285-25; G0378

== ENCOUNTER → 2019-05-17 | Outpatient (CLI) | payer OTHER ==
[~2019-05-17] MED LIST changes: +ATEN50TA PO; +DILT180C64 PO
--- NOTE | 2019-05-17 15:47 | CARD ---
MR#: [id number] Date of Study: 05/17/2019 Ordering Physician: BUCKY CRUZ, Referring Physician: BUCKY CRUZ, Tech: Taina Anderson [facility] APPROVED REPORT EXAM: Two-dimensional and M-mode echocardiogram with Doppler and color Doppler. Other Information Quality : Good INDICATION Hypertension/HCVD Pacemaker 2D DIMENSIONS RVDd3.2 (2.9-3.5cm)Left Atrium(2D)4.3 (1.6-4.0cm) IVSd1.5 (0.7-1.1cm)Aortic Root(2D)3.1 (2.0-3.7cm) LVDd4.9 (3.9-5.9cm)LVOT Diameter2.2 (1.8-2.4cm) PWd1.2 (0.7-1.1cm)LVDs4.0 (2.5-4.0cm) FS (%) 19.2 %SV45.2 ml Aortic Valve AoV Peak Tony.108.5cm/sAoV VTI21.6cm AO Peak GR.4.7mmHgLVOT Peak Tony.79.6cm/s AO Mean GR.3mmHgAVA (VMAX)2.83cm2 CRIS (VTI)3.27wq3JT P 1/2 [id number] Mitral Valve MV E Mmmczbco24.0cm/sMV DECEL [id number] MV A Dgtvoano31.9cm/sE/A Ratio0.6 Tricuspid Valve TR P. Ejskcvhr261vi/sRAP [id number] TR Peak Gr.10sxBdDZIM52swCz Pulmonary Vein S1 Hnmoikia43.2cm/sD2 Hedxmzpm13.9cm/s LEFT VENTRICLE The left ventricle is normal size. There is mild concentric left ventricular hypertrophy. Left ventri franca systolic function is normal. The Ejection Fraction is 55%. Apical motion consistent with pacemake r activation. Transmitral Doppler flow pattern is Grade I-abnormal relaxation pattern. RIGHT VENTRICLE The right ventricle is normal size. The right ventricular systolic function is normal. There is a pac emaker lead in the right ventricle. ATRIA The left atrium is mildly dilated. The right atrium size is normal. A pacemaker is seen in the right atrium consistent with history. The interatrial septum is intact with no evidence for an atrial septa l defect or patent foramen ovale as noted on 2-D or Doppler imaging. AORTIC VALVE The aortic valve is calcified but opens well. Doppler and Color Flow revealed mild aortic regurgitati on. There is no significant aortic valvular stenosis. MITRAL VALVE The mitral valve is normal in structure and function. There is no evidence of mitral valve prolapse. There is no mitral valve stenosis. Doppler and Color-flow revealed mild mitral regurgitation. TRICUSPID VALVE The tricuspid valve is normal in structure and function. Doppler and Color Flow revealed trace tricus pid regurgitation. The PA pressure was estimated at 23 mmHg. There is no tricuspid valve stenosis. PULMONIC VALVE The pulmonic valve is not well visualized. Doppler and Color Flow revealed trace pulmonic valvular re gurgitation. There is no pulmonic valvular stenosis. GREAT VESSELS The aortic root is normal in size. The ascending aorta is mildly dilated at 3.7 cm. The IVC is normal in size and collapses >50% with inspiration. PERICARDIAL EFFUSION There is no evidence of significant pericardial effusion. Critical Notification Critical Value: No <Conclusion> Left ventricle systolic function is normal. The Ejection Fraction is 55%. Transmitral Doppler flow pattern is Grade I-abnormal relaxation pattern. There is a pacemaker lead in the right atrium and right ventricle. Mild aortic regurgitation. Mild mitral regurgitation. Trace tricuspid regurgitation. The PA pressure was estimated at 23 mmHg. There is no evidence of significant pericardial effusion. Signed by : David Whitten, Electronically Approved : 05/17/2019 15:47:14
== END | disposition home or self-care (01) ==
LOC: ECHO 13:13
PROVIDERS: ATTEND Internal Medicine Cardiovascular Disease
DX: I08.0 Rheumatic disorders of both mitral and aortic valves (principal); I11.9 Hypertensive heart disease without heart failure; Z95.0 Presence of cardiac pacemaker
CPT/HCPCS: 93306

== ENCOUNTER 2019-05-21 17:37 | Emergency (ER) | payer OTHER ==
[~2019-05-21] VITALS: Ht 170.2 cm; Wt 99.8 kg
[~2019-05-21 17:37] MED LIST changes: -HYDROmorphone 2 MG/ML VIAL IV PRN; -IV NORMAL SALINE 1000ML BAG 1,000 ML IV SCH; -IV RINGERS,LACTATED 1000ML 1,000 ML IV SCH; -LIDOCAINE 1% PF 2 ML VIAL. ID PRN; -LIDOCAINE 2% PF 5 ML VIAL. ONE; -MORPHINE SULFATE 2 MG/ML VIAL. IV PRN; -PROCHLORPERAZINE 10 MG/2 ML VIAL. IV PRN; -PROPOFOL 40 ML IV ONE; -fentaNYL PF VIAL 100 MCG/2 ML VIAL IV PRN
--- NOTE | 2019-05-21 20:05 | PHYS DOC ---
Past Medical History Past Medical History: Depression, Diverticulitis, Diverticulosis, Hypertension, Other Additional Past Medical Histor: SLEEP APNEA, SICK SINUS SYNDROME Past Surgical History: Pacemaker, Tonsillectomy, Other Additional Past Surgical Histo: BOWEL RESECTION, LAP BAND & REMOVAL OF BAND, gastric sleeve Alcohol Use: Occasionally Drug Use: None Adult General Chief Complaint Chief Complaint: ABDOMINAL PAIN [place] [employer] HPI 64-year-old female with underlying history of diverticulosis, hypertension, depression presents to the emergency Department complaints of abdominal pain 5 days. Present pain left lower quadrant she states it comes and goes. She's been on liquid diet. She denies any nausea, vomiting has had some chills. She did have a colonoscopy today which apparently was normal. Given her continued abdominal pain she presented to the ER for further evaluation. Nothing makes her pain worse, nothing makes her pain better. Review of Systems Review of Systems Constitutional: + chills Respiratory: Denies cough or shortness of breath [] Cardiovascular: No additional information not addressed in HPI [] GI: LLQ abdominal pain, no nausea, vomiting, bloody stools or diarrhea [] : Denies dysuria or hematuria [] Musculoskeletal: Denies back pain or joint pain [] Neurologic: Denies headache, focal weakness or sensory changes [] All other systems were reviewed and found to be within normal limits, except as documented in this note. Current Medications Current Medications Current Medications Medications (Trade) Dose Ordered Sig/Gregorio Start Time Stop Time Status Last Admin Dose Admin Morphine Sulfate (Morphine Sulfate) 4 mg 1X ONCE 05/21/19 22:30 05/21/19 22:31 DC 05/21/19 22:17 4 MG Ondansetron HCl (Zofran) 4 mg 1X ONCE 05/21/19 22:15 05/21/19 22:16 DC 05/21/19 22:16 4 MG Allergies Allergies Allergies Coded Allergies Type Severity Reaction Last Updated Verified No Known Drug Allergies 05/21/19 No Physical Exam Physical Exam Constitutional: Well developed, well nourished, no acute distress, non-toxic appearance. [] Cardiovascular:Heart rate regular rhythm, no murmur [] Lungs & Thorax: Bilateral breath sounds clear to auscultation [] Abdomen: Bowel sounds normal, soft, TTP LLQ, no masses, no pulsatile masses. [] Skin: Warm, dry, no erythema, no rash. [] Extremities: No tenderness, no edema. [] Neurologic: Alert and oriented X 3, no focal deficits noted. [] Psychologic: Affect normal, judgement normal, mood normal. [] Current Patient Data Vital Signs Vital Signs Date Time Temp Pulse Resp B/P (MAP) Pulse Ox O2 Delivery O2 Flow Rate FiO2 05/21/19 22:17 96 05/21/19 19:45 98.1 63 18 170/110 (130) Room Air 98.1 Lab Values Laboratory Tests Test 05/21/19 20:23 White Blood Count 6.6 x10^3/uL (4.0-11.0) Red Blood Count 4.55 x10^6/uL (3.50-5.40) Hemoglobin 14.2 g/dL (12.0-15.5) Hematocrit 41.1 % (36.0-47.0) Mean Corpuscular Volume 90 fL (79-100) Mean Corpuscular Hemoglobin 31 pg (25-35) Mean Corpuscular Hemoglobin Concent 35 g/dL (31-37) Red Cell Distribution Width 13.2 % (11.5-14.5) Platelet Count 251 x10^3/uL (140-400) Neutrophils (%) (Auto) 59 % (31-73) Lymphocytes (%) (Auto) 28 % (24-48) Monocytes (%) (Auto) 9 % (0-9) Eosinophils (%) (Auto) 3 % (0-3) Basophils (%) (Auto) 1 % (0-3) Neutrophils # (Auto) 3.8 x10^3/uL (1.8-7.7) Lymphocytes # (Auto) 1.9 x10^3/uL (1.0-4.8) Monocytes # (Auto) 0.6 x10^3/uL (0.0-1.1) Eosinophils # (Auto) 0.2 x10^3/uL (0.0-0.7) Basophils # (Auto) 0.1 x10^3/uL (0.0-0.2) Sodium Level 136 mmol/L (136-145) Potassium Level 3.7 mmol/L (3.5-5.1) Chloride Level 100 mmol/L (98-107) Carbon Dioxide Level 30 mmol/L (21-32) Anion Gap 6 (6-14) Blood Urea Nitrogen 19 mg/dL (7-20) Creatinine 1.7 mg/dL (0.6-1.0) H Estimated GFR (Cockcroft-Gault) 30.3 BUN/Creatinine Ratio 11 (6-20) Glucose Level 95 mg/dL (70-99) Lactic Acid Level 1.0 mmol/L (0.4-2.0) Calcium Level 9.3 mg/dL (8.5-10.1) Total Bilirubin 0.8 mg/dL (0.2-1.0) Aspartate Amino Transferase (AST) 23 U/L (15-37) Alanine Aminotransferase (ALT) 22 U/L (14-59) Alkaline Phosphatase 61 U/L (46-116) Total Protein 7.9 g/dL (6.4-8.2) Albumin 4.2 g/dL (3.4-5.0) Albumin/Globulin Ratio 1.1 (1.0-1.7) Laboratory Tests 05/21/19 20:23 Laboratory Tests 05/21/19 20:23 EKG EKG [] Radiology/Procedures Radiology/Procedures [facility] [address] [place] [address] IMAGING REPORT Signed PATIENT: SAMUEL CHERY RACCOUNT: [id number] : 1955 LOCATION: ER AGE: 64 SEX: F EXAM STATUS: REG ER ORD. PHYSICIAN: ROBERT WHITTAKER MD REASON: LLQ pain, history of diverticulitis PROCEDURE: CT ABDOMEN PELVIS WO CONTRAST Examination: CT of the abdomen pelvis without contrast HISTORY: History of left lower quadrant abdominal pain COMPARISON: 03/06/2019 TECHNIQUE: Axial CT images of the abdomen pelvis were performed without contrast. Coronal and sagittal reformats are performed. Exposure: One or more of the following individualized dose reduction techniques were utilized for this examination: 1. Automated exposure control 2. Adjustment of the mA and/or kV according to patient size 3. Use of iterative reconstruction technique FINDINGS: Minimal atelectasis right lung base. No evidence of free air identified in the abdomen. The evaluation of the solid organs is limited due to lack of IV contrast. The evaluation of bowel is limited due to lack of oral contrast. The visualized noncontrasted liver, adrenals grossly appears unremarkable calcified granuloma is identified in the spleen. Cholecystectomy clips identified. Surgical changes identified in the stomach. Few distended small bowel loops identified in the right mid abdomen. Feces and gas noted in the colon. The appendix is normal. Sigmoid colon diverticulosis identified. The urinary bladder is mildly distended Prominent bilateral extrarenal pelvis. Moderate degenerative disease lumbar spine. IMPRESSION: 1. Nonspecific mild distended small bowel loops in the right mid abdomen.. 2. Sigmoid colon diverticulosis. Electronically signed by: Laith Cantor MD (05/21/2019 10:37 PM) [facility] DICTATED and SIGNED BY: LAITH CANTOR MD DATE: 05/21/192236 [] Course & Med Decision Making Course & Med Decision Making Pertinent Labs and Imaging studies reviewed. (See chart for details) []64-year-old female with underlying history of diverticulosis, hypertension, depression presents to the emergency Department complaints of abdominal pain 5 days. Present pain left lower quadrant she states it comes and goes. She's been on liquid diet. She denies any nausea, vomiting has had some chills. She did have a colonoscopy today which apparently was normal. Given her continued abdominal pain she presented to the ER for further evaluation. Nothing makes her pain worse, nothing makes her pain better. Labs reviewed, white blood cell counts 6, lactic acid 1.0 Abdomen pelvis without contrast given creatinine 1.7 reveals no evidence of acute diverticulitis or inflammatory process She received colonoscopy today, no evidence of free air or perforation Recommend discharge home follow up as an outpatient with GI/Surgery RX for pain provided upon discharge Discussed with patient, there is no evidence of acute inflammatory process identified Pain improved after morphine Dragon Disclaimer Dragon Disclaimer This electronic medical record was generated, in whole or in part, using a voice recognition dictation system. Departure Departure Impression: Primary Impression: Abdominal pain Additional Impression: Diverticulosis of colon without diverticulitis Disposition: HOME, SELF-CARE Condition: IMPROVED Referrals: YONI KNIGHT MD (PCP) Patient Instructions: Diverticulosis Additional Instructions: Recommend follow up with PCP 3 - 5 days Return to the ER with worsening symptoms, intractable pain, fever, altered mental status Tylenol/Motrin as needed for pain Pain rx provided fro 2 days Recommend follow up with GI/Surgery for further plans regarding diverticulosis CT shows no evidence of acute inflammatory process/no diverticulitis Scripts Hydrocodone/Apap 5-325 (NORCO 5-325 TABLET) 1 Each Tablet 1-2 TAB PO Q4-6HRS for pain, #14 TAB Prov: ROBERT WHITTAKER MD 05/21/19 Problem Qualifiers Primary Impression: Abdominal pain Abdominal location: left lower quadrant Qualified Codes: R10.32 - Left lower quadrant pain ROBERT WHITTAKER MD May 21, 2019 20:05
[2019-05-21] MEDS: ONDANSETRON PF 4 MG/2 ML VIAL. IV ONE (22:16)
[2019-05-21] MEDS: MORPHINE SULFATE 4 MG/ML VIAL. IV ONE (22:17)
--- NOTE | 2019-05-21 22:40 | RAD ---
Examination: CT of the abdomen pelvis without contrast HISTORY: History of left lower quadrant abdominal pain COMPARISON: 03/06/2019 TECHNIQUE: Axial CT images of the abdomen pelvis were performed without contrast. Coronal and sagittal reformats are performed. Exposure: One or more of the following individualized dose reduction techniques were utilized for this examination: 1. Automated exposure control 2. Adjustment of the mA and/or kV according to patient size 3. Use of iterative reconstruction technique FINDINGS: Minimal atelectasis right lung base. No evidence of free air identified in the abdomen. The evaluation of the solid organs is limited due to lack of IV contrast. The evaluation of bowel is limited due to lack of oral contrast. The visualized noncontrasted liver, adrenals grossly appears unremarkable calcified granuloma is identified in the spleen. Cholecystectomy clips identified. Surgical changes identified in the stomach. Few distended small bowel loops identified in the right mid abdomen. Feces and gas noted in the colon. The appendix is normal. Sigmoid colon diverticulosis identified. The urinary bladder is mildly distended Prominent bilateral extrarenal pelvis. Moderate degenerative disease lumbar spine. IMPRESSION: 1. Nonspecific mild distended small bowel loops in the right mid abdomen.. 2. Sigmoid colon diverticulosis. Electronically signed by: Laith Cantor MD (05/21/2019 10:37 PM) [facility]
[2019-05-21 22:57] VITALS: BP 138/79
[2019-05-21 23:04] LABS: ALBUMIN 4.2 g/dL (3.4-5.0); ALBUMIN/GLOBULIN RATIO 1.1 (1.0-1.7); CALCIUM 9.3 mg/dL (8.5-10.1); CREATININE 1.7 mg/dL (0.6-1.0); GFR 30.3; POTASSIUM 3.7 mmol/L (3.5-5.1); TOTAL BILIRUBIN 0.8 mg/dL (0.2-1.0); TOTAL PROTEIN 7.9 g/dL (6.4-8.2)
[2019-05-21 23:06] LABS: BASO # 0.1 x10^3/uL (0.0-0.2); BASO % 1 % (0-3); EOS # 0.2 x10^3/uL (0.0-0.7); EOS % 3 % (0-3); HEMATOCRIT 41.1 % (36.0-47.0); HEMOGLOBIN 14.2 g/dL (12.0-15.5); LYMPH # 1.9 x10^3/uL (1.0-4.8); LYMPH % 28 % (24-48); MEAN CORPUSCULAR HEMOGLOBIN 31 pg (25-35); MEAN CORPUSCULAR HGB CONC 35 g/dL (31-37); MEAN CORPUSCULAR VOLUME 90 fL (79-100); MONO # 0.6 x10^3/uL (0.0-1.1); MONO % 9 % (0-9); NEUT # 3.8 x10^3/uL (1.8-7.7); NEUT % 59 % (31-73); PLATELET COUNT 251 x10^3/uL (140-400); RED BLOOD COUNT 4.55 x10^6/uL (3.50-5.40); RED CELL DISTRIBUTION WIDTH 13.2 % (11.5-14.5); WHITE BLOOD COUNT 6.6 x10^3/uL (4.0-11.0)
[2019-05-21] MEDS ORDERED: HYDR-3164 PO (23:22)
== END 2019-05-21 23:35 | disposition home or self-care (01) ==
LOC: ER 17:37
DX: K57.30 Diverticulosis of large intestine without perforation or abscess without bleeding (principal); R10.32 Left lower quadrant pain; F32.9 Major depressive disorder, single episode, unspecified; K57.90 Diverticulosis of intestine, part unspecified, without perforation or abscess without bleeding; I10 Essential (primary) hypertension; G47.30 Sleep apnea, unspecified; I49.5 Sick sinus syndrome; Z98.890 Other specified postprocedural states; Z95.0 Presence of cardiac pacemaker; Z79.899 Other long term (current) drug therapy; Z90.89 Acquired absence of other organs
CPT/HCPCS: 36415; 74176; 80053; 83605; 85025; 96374; 96375; 99285; J2270; J2405

== ENCOUNTER → 2019-05-21 | Day surgery (SDC) | payer OTHER ==
[~2019-05-21] MED LIST changes: +HYDROmorphone 2 MG/ML VIAL IV PRN; +IV NORMAL SALINE 1000ML BAG 1,000 ML IV SCH; +IV RINGERS,LACTATED 1000ML 1,000 ML IV SCH; +LIDOCAINE 1% PF 2 ML VIAL. ID PRN; +LIDOCAINE 2% PF 5 ML VIAL. ONE; +MORPHINE SULFATE 2 MG/ML VIAL. IV PRN; +PROCHLORPERAZINE 10 MG/2 ML VIAL. IV PRN; +PROPOFOL 40 ML IV ONE; +fentaNYL PF VIAL 100 MCG/2 ML VIAL IV PRN
[2019-05-21 16:50] VITALS: BP 139/84
--- NOTE | 2019-05-21 23:07 | HP ---
ADMIT DATE: 05/21/2019 UPDATED HISTORY AND PHYSICAL REASON: Diverticulitis. Interval colonoscopy for possible resection. HISTORY OF PRESENT ILLNESS: A 64-year-old female with past medical history significant for hypertension, osteoarthritis, GERD, diverticulosis, status post cholecystectomy, pacemaker placement, tonsillectomy, cholecystectomy, breast biopsy, lap band removal with gastric sleeve, knee arthroscopy, is seen for interval colon exam. Had recurrent diverticulitis with prior resection. Colonoscopy is recommended prior to potential other re-resection. PAST MEDICAL HISTORY: As stated. ALLERGIES: None. MEDICATIONS: Include Tylenol, Xanax, atenolol, calcium, diltiazem, Lasix, Levaquin, Claritin, losartan, Robaxin, Flagyl, nicotine, omeprazole and Zofran. FAMILY HISTORY: Significant for colon cancer with her sister, diabetes, another with CREST syndrome and Parkinson's. SOCIAL HISTORY: She is a former smoker, social drinker. PAST SURGICAL HISTORY: As stated. REVIEW OF SYSTEMS: Per records. PHYSICAL EXAMINATION: GENERAL: Reveals a well-nourished, well-developed female. VITAL SIGNS: Temperature is 97.3, pulse 60, respiratory rate 18. HEENT: Normocephalic, atraumatic head. Pupils and extraocular muscles are not tested. Sclerae anicteric. NECK: Supple. LUNGS: Clear. CARDIOVASCULAR: Reveals an S1, S2 without S3, S4 or appreciable murmur. ABDOMEN: Reveals soft abdomen, normal bowel sounds, with left lower to deep palpation. EXTREMITIES: Reveals no cyanosis, clubbing or edema. IMPRESSION AND PLAN: Diverticulitis, status post resection, status post antibiotic therapy. Interval colonoscopy is recommended to reassess prior to potential surgery. ALEJANDRO CARTWRIGHT MD DR: MAGUE/gale JOB#: [id number] / [id number]
== END | disposition home or self-care (01) ==
LOC: ENDOS 15:27
PROVIDERS: ATTEND Internal Medicine Gastroenterology
DX: K57.92 Diverticulitis of intestine, part unspecified, without perforation or abscess without bleeding (principal); K64.0 First degree hemorrhoids; K57.30 Diverticulosis of large intestine without perforation or abscess without bleeding; K21.9 Gastro-esophageal reflux disease without esophagitis; M19.90 Unspecified osteoarthritis, unspecified site; I10 Essential (primary) hypertension; Z90.49 Acquired absence of other specified parts of digestive tract; Z95.0 Presence of cardiac pacemaker; Z98.890 Other specified postprocedural states; Z98.84 Bariatric surgery status; Z79.899 Other long term (current) drug therapy; Z83.3 Family history of diabetes mellitus; Z80.0 Family history of malignant neoplasm of digestive organs; Z87.891 Personal history of nicotine dependence
CPT/HCPCS: 36415; 45378; J2001; J2704

== ENCOUNTER 2019-09-15 13:33 | Emergency (ER) | payer OTHER ==
[~2019-09-15] VITALS: Ht 170.2 cm; Wt 90.9 kg
[2019-09-15 13:46] VITALS: BP 164/82
--- NOTE | 2019-09-15 14:27 | RAD ---
PROCEDURE: FOOT LEFT 3V STUDY DATE: 09/15/2019 CLINICAL INDICATION / HISTORY: Pain on lateral side of the left foot.. TECHNIQUE: AP, lateral and oblique views of the left foot. COMPARISON: None FINDINGS: No fracture or dislocation is identified. The bone density is normal. The joint space widths are maintained, and there are no erosions to suggest an inflammatory arthropathy. No soft tissue abnormality is seen. Small calcaneal spur and Achilles enthesophyte. IMPRESSION: No acute osseous abnormality. Electronically signed by: J Luis Moody MD (09/15/2019 2:25 PM) [id number]
--- NOTE | 2019-09-15 15:25 | PHYS DOC ---
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 Patient says she was sitting on a chair, when she stood up she started having pain on the lateral part of her left foot. Patient denies any injury, denies any chest pain or any trouble breathing, no recent travel or operation. Patient had no history of blood clot disorder. Review of Systems: Review of Systems: Constitutional: Denies fever or chills. [] Eyes: Denies change in visual acuity. [] HENT: Denies nasal congestion or sore throat. [] Respiratory: Denies cough or shortness of breath. [] Cardiovascular: Denies chest pain or edema. [] GI: Denies abdominal pain, nausea, vomiting, bloody stools or diarrhea. [] : Denies dysuria. [] Musculoskeletal: Positive for left foot pain Integument: Denies rash. [] Neurologic: Denies headache, focal weakness or sensory changes. [] Endocrine: Denies polyuria or polydipsia. [] Lymphatic: Denies swollen glands. [] Psychiatric: Denies depression or anxiety. [] Heart Score: Risk Factors: Risk Factors: DM, Current or recent (<one month) smoker, HTN, HLP, family history of CAD, obesity. Risk Scores: Score 0 - 3: 2.5% MACE over next 6 weeks - Discharge Home Score 4 - 6: 20.3% MACE over next 6 weeks - Admit for Clinical Observation Score 7 - 10: 72.7% MACE over next 6 weeks - Early Invasive Strategies Allergies: Allergies: Allergies Coded Allergies Type Severity Reaction Last Updated Verified No Known Drug Allergies 05/21/19 No Physical Exam: PE: Constitutional: Well developed, well nourished, no acute distress, non-toxic appearance. [] HENT: Normocephalic, atraumatic, Eyes: PERRLA, EOMI, conjunctiva normal, no discharge. [] Extremities: No tenderness, no cyanosis, no clubbing, ROM intact, no edema. There is no swelling, no redness on left foot, There is good dorsalic pedis pulse. Neurologic: Alert and oriented X 3, normal motor function, normal sensory function, no focal deficits noted. [] Psychologic: Affect normal, judgement normal, mood normal. [] Current Patient Data: Vital Signs: Vital Signs Date Time Temp Pulse Resp B/P (MAP) Pulse Ox O2 Delivery O2 Flow Rate FiO2 09/15/19 13:46 97.8 62 18 164/82 (109) 98 Room Air 97.8 EKG: EKG: [] Radiology/Procedures: Radiology/Procedures: [][facility] [address] [place] [address] IMAGING REPORT Signed PATIENT: SAMUEL CHERY RACCOUNT: [id number] : 1955 LOCATION: ER AGE: 64 SEX: F EXAM STATUS: REG ER ORD. PHYSICIAN: NON,STAFF REASON: PAIN LATERAL SIDE OF FOOT/ NO KNOWN INJURY PROCEDURE: FOOT LEFT 3V PROCEDURE: FOOT LEFT 3V STUDY DATE: 09/15/2019 CLINICAL INDICATION / HISTORY: Pain on lateral side of the left foot.. TECHNIQUE: AP, lateral and oblique views of the left foot. COMPARISON: None FINDINGS: No fracture or dislocation is identified. The bone density is normal. The joint space widths are maintained, and there are no erosions to suggest an inflammatory arthropathy. No soft tissue abnormality is seen. Small calcaneal spur and Achilles enthesophyte. IMPRESSION: No acute osseous abnormality. Electronically signed by: Lupillo Moody MD (09/15/2019 2:25 PM) [id number] DICTATED and SIGNED BY: LUPILLO MOODY MD DATE: 09/15/19 1425 Course & Med Decision Making: Course & Med Decision Making Pertinent Labs and Imaging studies reviewed. (See chart for details) This physician did not have a chance to finish evaluation this patient. This physician had to run to take care another critical patient. The patient did not want to wait. She left before being discharged. Gian Disclaimer: Gian Disclaimer: This electronic medical record was generated, in whole or in part, using a voice recognition dictation system. Departure Departure Impression: Primary Impression: Left foot pain Disposition: HOME, SELF-CARE Condition: STABLE Referrals: YONI KNIGHT MD (PCP) ADY ZHANG DO September 15, 2019 15:25
== END 2019-09-15 15:30 | disposition home or self-care (01) ==
LOC: ER 13:33
DX: M79.672 Pain in left foot (principal); F32.9 Major depressive disorder, single episode, unspecified; I10 Essential (primary) hypertension; Z98.890 Other specified postprocedural states; Z95.0 Presence of cardiac pacemaker
CPT/HCPCS: 73630; 99283

== ENCOUNTER 2019-10-03 14:57 | Emergency (ER) | payer OTHER ==
[~2019-10-03] VITALS: Ht 170.2 cm; Wt 90.9 kg
[2019-10-03 15:29] LABS: BILIRUBIN,URINE SMALL (NEG); CLARITY,URINE CLEAR; NITRITE,URINE NEGATIVE (NEG); PH,URINE 5.5 (<5.0-8.0); PROTEIN,URINE NEGATIVE (NEG-TRACE); UROBILINOGEN,URINE 0.2 mg/dL (0.2 mg/dL)
[2019-10-03] MEDS ORDERED: ONDANSETRON PF 4 MG/2 ML VIAL. IVP ONE (15:30)
[2019-10-03] MEDS ORDERED: IV NORMAL SALINE 1000ML BAG 1,000 ML IV ONE ×2 (15:30)
[2019-10-03] MEDS ORDERED: FAMOTIDINE 20 MG/2 ML VIAL IVP ONE (15:30)
[2019-10-03 15:35] LABS: BARBITURATES NEG (NEG); BENZODIAZEPINES POS (NEG); CANNABINOIDS POS (NEG); COCAINE NEG (NEG); METHADONE NEG (NEG); OPIATES POS (NEG); PHENCYCLIDINE NEG (NEG)
[2019-10-03 15:37] LABS: AMPHETAMINE/METHAMPHETAMINE POS (NEG)
[2019-10-03 15:45] LABS: COLOR,URINE DK YELLOW
[2019-10-03 15:46] LABS: BASO # 0.1 x10^3/uL (0.0-0.2); BASO % 1 % (0-3); EOS # 0.2 x10^3/uL (0.0-0.7); EOS % 3 % (0-3); HEMATOCRIT 36.4 % (36.0-47.0); HEMOGLOBIN 12.5 g/dL (12.0-15.5); LYMPH # 1.5 x10^3/uL (1.0-4.8); LYMPH % 34 % (24-48); MEAN CORPUSCULAR HEMOGLOBIN 31 pg (25-35); MEAN CORPUSCULAR HGB CONC 34 g/dL (31-37); MEAN CORPUSCULAR VOLUME 90 fL (79-100); MONO # 0.4 x10^3/uL (0.0-1.1); MONO % 10 % (0-9); NEUT # 2.3 x10^3/uL (1.8-7.7); NEUT % 52 % (31-73); PLATELET COUNT 232 x10^3/uL (140-400); RED BLOOD COUNT 4.06 x10^6/uL (3.50-5.40); RED CELL DISTRIBUTION WIDTH 14.1 % (11.5-14.5); WHITE BLOOD COUNT 4.5 x10^3/uL (4.0-11.0)
[2019-10-03 15:48] LABS: BACTERIA,URINE FEW /HPF (0-FEW); RBC,URINE 0 /HPF (0-2); SQUAMOUS EPITHELIAL CELL,UR MANY /LPF
--- NOTE | 2019-10-03 16:05 | PHYS DOC ---
Past Medical History Past Medical History: Depression, Diverticulitis, Diverticulosis, Hypertension, Other Additional Past Medical Histor: SLEEP APNEA, SICK SINUS SYNDROME Past Surgical History: Pacemaker, Tonsillectomy, Other Additional Past Surgical Histo: BOWEL RESECTION, LAP BAND & REMOVAL OF BAND, gastric sleeve Smoking Status: Never Smoker Alcohol Use: Occasionally Drug Use: None General Adult EDM: Chief Complaint: ABDOMINAL PAIN HPI: HPI: Patient is a 64-year-old female with history of diverticulitis, diverticulosis, hypertension, depression who presents to the ED today complaining of 5 out of 10 left lower quadrant abdominal pain. Patient denies any fever, nausea vomiting, reports occasional intermittent loose stools. She states symptoms have been going on for 3 weeks. Review of Systems: Review of Systems: Constitutional: Denies fever or chills. [] Eyes: Denies change in visual acuity. [] HENT: Denies nasal congestion or sore throat. [] Respiratory: Denies cough or shortness of breath. [] Cardiovascular: Denies chest pain or edema. [] GI: Reports left lower quadrant abdominal pain with loose stools. Nausea, vomiting, bloody stools : Denies dysuria. [] Musculoskeletal: Denies back pain or joint pain. [] Integument: Denies rash. [] Neurologic: Denies headache, focal weakness or sensory changes. [] Endocrine: Denies polyuria or polydipsia. [] Lymphatic: Denies swollen glands. [] Psychiatric: Denies depression or anxiety. [] Heart Score: Risk Factors: Risk Factors: DM, Current or recent (<one month) smoker, HTN, HLP, family history of CAD, obesity. Risk Scores: Score 0 - 3: 2.5% MACE over next 6 weeks - Discharge Home Score 4 - 6: 20.3% MACE over next 6 weeks - Admit for Clinical Observation Score 7 - 10: 72.7% MACE over next 6 weeks - Early Invasive Strategies Current Medications: Current Medications Medications (Trade) Dose Ordered Sig/Gregorio Start Time Stop Time Status Last Admin Dose Admin Famotidine (Pepcid Vial) 20 mg 1X ONCE 10/03/19 15:30 10/03/19 15:31 DC 10/03/19 15:41 20 MG Ondansetron HCl (Zofran) 4 mg 1X ONCE 10/03/19 15:30 10/03/19 15:31 DC 10/03/19 15:41 4 MG Sodium Chloride 1,000 ml @ 1,000 mls/hr 1X ONCE 10/03/19 15:30 10/03/19 16:29 10/03/19 15:42 1,000 MLS/HR Allergies: Allergies: Allergies Coded Allergies Type Severity Reaction Last Updated Verified No Known Drug Allergies 05/21/19 No Physical Exam: PE: Constitutional: Well developed, well nourished, no acute distress, non-toxic appearance. [] HENT: Normocephalic, atraumatic, bilateral external ears normal, oropharynx mois t, no oral exudates, nose normal. [] Eyes: PERRLA, EOMI, conjunctiva normal, no discharge. [] Neck: Normal range of motion, no tenderness, supple, no stridor. [] Cardiovascular:Heart rate regular rhythm, no murmur [] Lungs & Thorax: Bilateral breath sounds clear to auscultation [] Abdomen: Bowel sounds normal, soft, slight tenderness on palpation of the left lower quadrant, no right upper quadrant or right lower quadrant tenderness, no masses, no pulsatile masses. [] Skin: Warm, dry, no erythema, no rash. [] Back: No tenderness, no CVA tenderness. [] Extremities: No tenderness, no cyanosis, no clubbing, ROM intact, no edema. [] Neurologic: Alert and oriented X 3, normal motor function, normal sensory function, no focal deficits noted. [] Psychologic: Affect normal, judgement normal, mood normal. [] Current Patient Data: Labs: Laboratory Tests Test 10/03/19 15:05 10/03/19 15:35 Urine Collection Type Void Urine Color Dk yellow Urine Clarity Clear Urine pH 5.5 (<5.0-8.0) Urine Specific [place] 1.025 (1.000-1.030) Urine Protein Negative mg/dL (NEG-TRACE) Urine Glucose (UA) Negative mg/dL (NEG) Urine Ketones (Stick) Negative mg/dL (NEG) Urine Blood Negative (NEG) Urine Nitrite Negative (NEG) Urine Bilirubin Small (NEG) Urine Urobilinogen Dipstick 0.2 mg/dL (0.2 mg/dL) Urine Leukocyte Esterase Negative (NEG) Urine RBC 0 /HPF (0-2) Urine WBC 1-4 /HPF (0-4) Urine Squamous Epithelial Cells Many /LPF Urine Bacteria Few /HPF (0-FEW) Urine Mucus Marked /LPF Urine Opiates Screen Pos (NEG) Urine Methadone Screen Neg (NEG) Urine Barbiturates Neg (NEG) Urine Phencyclidine Screen Neg (NEG) Urine Amphetamine/Methamphetamine Pos (NEG) Urine Benzodiazepines Screen Pos (NEG) Urine Cocaine Screen Neg (NEG) Urine Cannabinoids Screen Pos (NEG) Urine Ethyl Alcohol Neg (NEG) White Blood Count 4.5 x10^3/uL (4.0-11.0) Red Blood Count 4.06 x10^6/uL (3.50-5.40) Hemoglobin 12.5 g/dL (12.0-15.5) Hematocrit 36.4 % (36.0-47.0) Mean Corpuscular Volume 90 fL (79-100) Mean Corpuscular Hemoglobin 31 pg (25-35) Mean Corpuscular Hemoglobin Concent 34 g/dL (31-37) Red Cell Distribution Width 14.1 % (11.5-14.5) Platelet Count 232 x10^3/uL (140-400) Neutrophils (%) (Auto) 52 % (31-73) Lymphocytes (%) (Auto) 34 % (24-48) Monocytes (%) (Auto) 10 % (0-9) H Eosinophils (%) (Auto) 3 % (0-3) Basophils (%) (Auto) 1 % (0-3) Neutrophils # (Auto) 2.3 x10^3/uL (1.8-7.7) Lymphocytes # (Auto) 1.5 x10^3/uL (1.0-4.8) Monocytes # (Auto) 0.4 x10^3/uL (0.0-1.1) Eosinophils # (Auto) 0.2 x10^3/uL (0.0-0.7) Basophils # (Auto) 0.1 x10^3/uL (0.0-0.2) Laboratory Tests 10/03/19 15:35 Vital Signs: Vital Signs Date Time Temp Pulse Resp B/P (MAP) Pulse Ox O2 Delivery O2 Flow Rate FiO2 10/03/19 15:15 98.1 68 14 158/86 (110) 97 Room Air 98.1 EKG: EKG: [] Radiology/Procedures: Radiology/Procedures: [] Course & Med Decision Making: Course & Med Decision Making Pertinent Labs and Imaging studies reviewed. (See chart for details) This is a 64-year-old female patient presenting to the ED today with left lower quadrant abdominal pain and some loose stools intermittently for 3 weeks. Raf hidalgo has known history of a diverticulitis and diverticulosis. Patient's labs are negative for any acute findings. Drug screen noted for marijuana use, methamphetamine use and opiates which could have been given to her during the ED stay. CT of the abdomen and pelvic is negative for any acute findings Patient was discharged home. Follow-up with her own PCP in the course of this week or next week Gian Disclaimer: iGan Disclaimer: This electronic medical record was generated, in whole or in part, using a voice recognition dictation system. Departure Departure Impression: Primary Impression: Abdominal pain, left lower quadrant Disposition: 01 HOME, SELF-CARE Condition: STABLE Referrals: YONI KNIGHT MD (PCP) Follow-up in 1 to 2 weeks Patient Instructions: Abdominal Pain (Nonspecific) Additional Instructions: You were seen for left lower quadrant abdominal pain, your ED work-up is negative for any acute findings. Follow-up with your own doctor in the course of this week or next week RENITA MARADIAGA APRN October 03, 2019 16:05
[2019-10-03 16:06] LABS: CALCIUM 8.4 mg/dL (8.5-10.1); CREATININE 0.9 mg/dL (0.6-1.0); POTASSIUM 4.5 mmol/L (3.5-5.1)
[2019-10-03 16:12] LABS: ALBUMIN 3.7 g/dL (3.4-5.0); ALBUMIN/GLOBULIN RATIO 1.3 (1.0-1.7); TOTAL BILIRUBIN 0.5 mg/dL (0.2-1.0); TOTAL PROTEIN 6.5 g/dL (6.4-8.2)
[2019-10-03 16:14] VITALS: BP 176/100
[2019-10-03] MEDS ORDERED: CONTRAST GIVEN. MC PRN (16:30)
[2019-10-03] MEDS ORDERED: IOHEXOL 300 MG/ML 100ML VIAL. IV ONE (16:30)
--- NOTE | 2019-10-03 17:15 | RAD ---
CT study of the abdomen and pelvis with contrast Clinical indications: Left lower quadrant abdominal pain. COMPARISON: CT study of the abdomen and pelvis dated May 21, 2019. TECHNIQUE: After IV infusion of 75 cc of Omnipaque 300, helical CT scanning of the abdomen and pelvis was performed. No GI contrast was administered. Without GI contrast neutral, the sensitivity to detect GI tract pathology is decreased. PQRS compliance Statement One or more of the following individualized dose reduction techniques were utilized for this study: 1. Automated exposure control 2. Adjustment of the mA and/or kV according to patient size 3. Use of iterative reconstruction technique FINDINGS: The liver and spleen and pancreas are unremarkable. Gallbladder is surgically absent and no extrahepatic biliary ductal dilatation is seen. No adrenal mass is seen. No hydronephrosis or hydroureter or urinary tract stone is evident. No renal mass or perinephric inflammation or free fluid is seen. Urinary bladder is not abnormally distended. No uterine mass is evident. No dominant ovarian cyst or mass is seen. No focal aneurysmal dilatation of the abdominal aorta is seen. No enlarged abdominal or pelvic lymphadenopathy is evident. Colonic diverticulosis is seen without diverticulitis. There are no CT findings of appendicitis. The terminal ileum is unremarkable. No obstructive bowel pattern is evident. There is soft tissue edema of the anterior abdominal wall which was not seen previously. This is seen at the level of the umbilicus. No fluid collection or abscess is seen here. No mesenteric edema is evident. No free intraperitoneal air or free intraperitoneal fluid is seen. Chronic scarring of the right lower lobe is seen. No lytic process is seen. IMPRESSION: New finding of soft tissue edema of the subcutaneous fat of the left anterior abdominal wall at the level of the umbilicus. This could be secondary to bruising or could be seen with cellulitis if there are clinical findings of such. Another possibility is inflammation related to recent injections. 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 Diverticulosis without diverticulitis. No acute abnormality of the abdomen and pelvis is seen otherwise. Electronically signed by: Darryl Ramirez MD (10/03/2019 5:12 PM) [facility] [place]
== END 2019-10-03 17:40 | disposition home or self-care (01) ==
LOC: ER 14:57
DX: R10.32 Left lower quadrant pain (principal); R19.7 Diarrhea, unspecified; I10 Essential (primary) hypertension; Z95.0 Presence of cardiac pacemaker
CPT/HCPCS: 36415; 74177; 80053; 80307; 81001; 83690; 85025; 96361; 96374; 96375; 99285; G0480; J2405; J3490; J7030; Q9967

== ENCOUNTER → 2019-10-04 | Outpatient (CLI) | payer OTHER ==
[2019-10-03 16:14] VITALS: BP 176/100
--- NOTE | 2019-10-04 16:26 | RAD ---
Examination: Ultrasound pelvis HISTORY: History of pelvic pain COMPARISON: None available. FINDINGS: The uterus measures 5.9 x 3.4 x 4.2 cm. Endometrium measures 10.4 mm in thickness. Heterogeneous appearance of the endometrium.. The right ovary measures 1.7 x 1.2 x 1.3 cm. The left ovary measures 1.6 x 1.5 x 1.4 cm.Blood flow identified in the right and left ovaries. Free fluid identified in the cul-de-sac. IMPRESSION: Mild thickened heterogeneous appearance of the endometrium could be endometrial hyperplasia or neoplasm. Electronically signed by: Laith Cantor MD (10/04/2019 4:23 PM) [id number]
== END | disposition home or self-care (01) ==
LOC: US 14:57
PROVIDERS: ATTEND Nurse Practitioner Family
DX: R10.2 Pelvic and perineal pain (principal)
CPT/HCPCS: 76830; 76856

== ENCOUNTER → 2019-10-18 | Outpatient (CLI) | payer OTHER ==
[2019-10-03 16:14] VITALS: BP 176/100
[2019-10-18 08:04] LABS: BASO # 0.1 x10^3/uL (0.0-0.2); BASO % 1 % (0-3); EOS # 0.2 x10^3/uL (0.0-0.7); EOS % 4 % (0-3); HEMATOCRIT 39.7 % (36.0-47.0); HEMOGLOBIN 13.6 g/dL (12.0-15.5); LYMPH # 1.5 x10^3/uL (1.0-4.8); LYMPH % 36 % (24-48); MEAN CORPUSCULAR HEMOGLOBIN 31 pg (25-35); MEAN CORPUSCULAR HGB CONC 34 g/dL (31-37); MEAN CORPUSCULAR VOLUME 90 fL (79-100); MONO # 0.4 x10^3/uL (0.0-1.1); MONO % 10 % (0-9); NEUT % 49 % (31-73); PLATELET COUNT 213 x10^3/uL (140-400); RED CELL DISTRIBUTION WIDTH 13.8 % (11.5-14.5); WHITE BLOOD COUNT 4.2 x10^3/uL (4.0-11.0)
[2019-10-18 08:32] LABS: ALBUMIN/GLOBULIN RATIO 1.1 (1.0-1.7); CALCIUM 9.1 mg/dL (8.5-10.1); CREATININE 1.2 mg/dL (0.6-1.0); GFR 45.2; POTASSIUM 4.5 mmol/L (3.5-5.1); TOTAL BILIRUBIN 0.4 mg/dL (0.2-1.0); TOTAL PROTEIN 7.8 g/dL (6.4-8.2)
[2019-10-18 08:33] LABS: CHOLESTEROL/HDL RATIO 3.9
[2019-10-18 22:08] LABS: ESTRADIOL LEVEL <5.0 pg/mL (.); LUTEINIZING HORMONE 18.4 mIU/mL (.); PROGESTERONE <0.1 ng/mL (.)
[2019-10-19 03:08] LABS: HEMOGLOBIN A1C 5.1 % (4.8-5.6)
== END ==
LOC: LAB 07:38
PROVIDERS: ATTEND Obstetrics & Gynecology
DX: L65.9 Nonscarring hair loss, unspecified (principal)
CPT/HCPCS: 36415; 80053; 80061; 82627; 82652; 82670; 83001; 83002; 83036; 84144; 84402; 84403; 84443; 85025

== ENCOUNTER → 2020-02-18 | Outpatient (CLI) | payer OTHER ==
[2020-02-18 12:31] LABS: BASO % 1 % (0-3); EOS # 0.1 x10^3/uL (0.0-0.7); EOS % 3 % (0-3); HEMATOCRIT 40.5 % (36.0-47.0); HEMOGLOBIN 13.9 g/dL (12.0-15.5); LYMPH # 1.4 x10^3/uL (1.0-4.8); LYMPH % 28 % (24-48); MEAN CORPUSCULAR HEMOGLOBIN 31 pg (25-35); MEAN CORPUSCULAR HGB CONC 34 g/dL (31-37); MEAN CORPUSCULAR VOLUME 91 fL (79-100); MONO # 0.4 x10^3/uL (0.0-1.1); MONO % 9 % (0-9); NEUT # 3.1 x10^3/uL (1.8-7.7); NEUT % 60 % (31-73); PLATELET COUNT 235 x10^3/uL (140-400); RED BLOOD COUNT 4.44 x10^6/uL (3.50-5.40); RED CELL DISTRIBUTION WIDTH 13.1 % (11.5-14.5); WHITE BLOOD COUNT 5.1 x10^3/uL (4.0-11.0)
[2020-02-18 12:39] LABS: C-REACTIVE PROTEIN 2.1 mg/L (0-3.3); CALCIUM 9.3 mg/dL (8.5-10.1); CREATININE 1.1 mg/dL (0.6-1.0); POTASSIUM 4.2 mmol/L (3.5-5.1); TOTAL BILIRUBIN 0.6 mg/dL (0.2-1.0)
[2020-02-18 12:53] LABS: FREE T4 0.87 ng/dL (0.76-1.46); THYROID STIM HORMONE (TSH) 2.086 uIU/mL (0.358-3.74)
[2020-02-18 21:08] LABS: RHEUMATOID FACTOR <10.0 IU/mL (0.0-13.9)
[2020-02-19 17:10] LABS: ANA INTERP Negative (.)
[2020-02-20 22:08] LABS: GLIA IGA 5 units (0-19); GLIA IGG 3 units (0-19); TRANSGLUTAMINASE IGA AB <2 U/mL (0-3); TRANSGLUTAMINASE IGG AB 6 U/mL (0-5)
== END ==
LOC: LAB 12:00
PROVIDERS: ATTEND Obstetrics & Gynecology
DX: R53.83 Other fatigue (principal); Z20.828 Contact with and (suspected) exposure to other viral communicable diseases
CPT/HCPCS: 80053; 83516; 84439; 84443; 84481; 85025; 85610; 86038; 86140; 86431; U0003; 36415

== ENCOUNTER → 2020-04-21 | Outpatient (CLI) | payer OTHER | LOC: LAB 14:55 | PROVIDERS: ATTEND Internal Medicine Pulmonary Disease | DX: J02.9 Acute pharyngitis, unspecified (principal); R09.81 Nasal congestion; R19.7 Diarrhea, unspecified; R51.9 Headache, unspecified; Z20.828 Contact with and (suspected) exposure to other viral communicable diseases | CPT/HCPCS: U0003 ==

== ENCOUNTER → 2020-05-20 | Outpatient (CLI) | payer OTHER ==
--- NOTE | 2020-05-20 13:55 | KCIC ---
Small bowel follow-through study 05/20/2020 CLINICAL HISTORY: Left lower quadrant and right lower quadrant abdominal pain. Irregular bowel moveme nts. TECHNIQUE: A small bowel follow-through study was performed under radiographic and intermittent fluor oscopic control. The total fluoroscopic time for this study is 36 minutes. 3 digital spot radiographs of the right lower quadrant of the abdomen were obtained. FINDINGS: Comparison is made to the patient's CT scan of the abdomen and pelvis dated 10/03/2019. An AP digital radiograph of the abdomen/pelvis was obtained as a program director cable television. The radiograph demonstrates s urgical clips overlying the right upper quadrant abdomen consistent with a cholecystectomy. The abdom inal bowel gas pattern is nonobstructive. A moderate amount stool is seen scattered throughout the co christiano. No radiopaque calculus is seen. Calcifications are seen within the pelvis consistent with phlebo liths. Atherosclerotic calcification of the abdominal aorta and its branches is noted. There is diffu se osteopenia of the visualized bony structures. Mild S-shaped curvature of the thoracolumbar spine i s seen. Degenerative changes are seen involving the lumbar spine and both hips. The mucosal pattern of the duodenum, jejunum, ileum and terminal ileum is within normal limits. The s mall bowel transit time is within normal limits. The cecum is in its normal location within the right lower quadrant of the abdomen. No extrinsic mass effect upon the small intestine is seen. IMPRESSION: Negative study. Electronically signed by: Rafal Newell MD (05/20/2020 1:52 PM) [id number]
== END ==
LOC: KCIC 09:52
PROVIDERS: ATTEND Internal Medicine Gastroenterology
DX: R10.32 Left lower quadrant pain (principal); R10.31 Right lower quadrant pain; M47.816 Spondylosis without myelopathy or radiculopathy, lumbar region; M16.0 Bilateral primary osteoarthritis of hip; Z90.49 Acquired absence of other specified parts of digestive tract
CPT/HCPCS: 74250